=== PATIENT | male | born 1950 | race Caucasian/White ===

== ENCOUNTER → 2018-02-08 11:00 | Outpatient (CLI) | payer MEDICARE, OTHER, SELFPAY | PROVIDERS: PCP Family Medicine; Visit Provider Internal Medicine Interventional Cardiology | DX: I25.10 Atherosclerotic heart disease of native coronary artery without angina pectoris (principal); R07.9 Chest pain, unspecified; R00.2 Palpitations; G47.30 Sleep apnea, unspecified | CPT/HCPCS: 99213 ==

== ENCOUNTER 2018-02-10 11:28 | Outpatient (RCR) | payer SELFPAY | END 2018-02-10 23:59 | disposition home or self-care (01) | LOC: CR 11:28 | PROVIDERS: PCP Family Medicine; Visit Provider Family Medicine | DX: Z51.89 Encounter for other specified aftercare (principal) | CPT/HCPCS: S9472 ==

== ENCOUNTER 2018-02-20 01:26 | Outpatient (CLI) | payer MEDICARE, SELFPAY | END 2018-02-20 01:46 | PROVIDERS: PCP Family Medicine; Visit Provider Internal Medicine Interventional Cardiology | DX: I45.81 Long QT syndrome (principal) | CPT/HCPCS: 93005; 93010 ==

== ENCOUNTER 2018-03-06 17:05 | Outpatient (CLI) | payer MEDICARE, SELFPAY ==
--- NOTE | 2018-03-06 15:03 | DI.RAD_ITS ---
SYMPTOM/DIAGNOSIS: LOW BACK AND RT LEG PAIN, ACUTE, M54.5, M54.41 LUMBAR SPINE: AP, lateral and bilateral oblique views. There are five lumbar type vertebral bodies. No spondylolysis or spondylolisthesis is seen. No acute fractures or subluxations are present. Mild disc space narrowing is seen at L 2-3, L 3-4 and L 5-S 1. There are endplate osteophytes seen at L 3-4 through L 5-S 1 disc levels. Degenerative changes of the facets are seen at L 3-4, L 4-5 and L 5-S 1. Surgical clips are seen in the right upper quadrant of the abdomen likely from prior cholecystectomy. IMPRESSION: Moderate degenerative changes in the lumbar spine.
== END 2018-03-06 17:25 ==
PROVIDERS: PCP Family Medicine; Visit Provider Family Medicine
DX: M54.5 Low back pain (principal); M54.41 Lumbago with sciatica, right side; M51.37 Other intervertebral disc degeneration, lumbosacral region
CPT/HCPCS: 72110

== ENCOUNTER 2018-03-10 13:16 | Outpatient (RCR) | payer SELFPAY | END 2018-03-12 23:59 | disposition home or self-care (01) | LOC: CR 13:16 | PROVIDERS: PCP Family Medicine; Visit Provider Family Medicine | DX: Z51.89 Encounter for other specified aftercare (principal) | CPT/HCPCS: S9472 ==

== ENCOUNTER 2018-03-15 07:00 | Outpatient (RCR) | payer SELFPAY | END 2018-04-12 23:59 | disposition home or self-care (01) | LOC: CR 07:00 | PROVIDERS: PCP Family Medicine; Visit Provider Family Medicine | DX: Z51.89 Encounter for other specified aftercare (principal) | CPT/HCPCS: S9472 ==

== ENCOUNTER 2018-03-28 01:25 | Outpatient (CLI) | payer MEDICARE, OTHER, SELFPAY ==
--- NOTE | 2018-03-28 08:30 | DI.MRI_ITS ---
SYMPTOMS/DIAGNOSIS: LOW BACK PAIN AND RIGHT SCIATICA, M54.41, LUMBAGO LUMBAR MRI: The study is compared with the prior examination of 12/05/13. Sagittal T1 and T2 and axial T1 and T2 pulse sequences were performed. Again noted is multilevel facet joint hypertrophy with associated spinal canal stenosis and neural foraminal stenosis. There is no significant bony signal abnormality. There is evidence of degenerative disc disease involving L1 through S1. Again demonstrated is a disc bulge at L5-S1. Again demonstrated are subligamentous disc protrusions at L4-5, L3-4 and L2-3. At L3-4, there is mild to moderate central spinal canal stenosis. The small disc herniation is unchanged when compared with the prior study. At L2-3, mild central canal stenosis is demonstrated, unchanged when compared with the prior study. SUMMARY: When compared with the prior examination, again noted are findings consistent with degenerative disc disease. There are multiple disc herniations and severe facet joint DJD is as noted above, the findings again most severe at L3-4. There has been little interval change when compared with the prior examination.
== END 2018-03-28 01:45 ==
PROVIDERS: PCP Family Medicine; Visit Provider Family Medicine
DX: M54.41 Lumbago with sciatica, right side (principal); M51.16 Intervertebral disc disorders with radiculopathy, lumbar region
CPT/HCPCS: 72148

== ENCOUNTER 2018-04-13 04:31 | Outpatient (RCR) | payer SELFPAY | END 2018-05-12 23:59 | disposition home or self-care (01) | LOC: CR 04:31 | PROVIDERS: PCP Family Medicine; Visit Provider Family Medicine | DX: Z51.89 Encounter for other specified aftercare (principal) ==

== ENCOUNTER 2018-04-17 08:54 | Outpatient (CLI) | payer MEDICARE, OTHER, SELFPAY ==
[2018-04-17 10:36] LABS: HCT 43.8 % (40.0-50.0); HGB 14.6 g/dL (13.5-17.5); Mean Corp. HGB Concentration 33.3 g/dL (32.0-36.0); Mean Corpuscular Hemoglobin 30.2 pg (27.0-33.0); Mean Corpuscular Volume 90.5 fL (80-95); Mean Platelet Volume 10.2 fL (8.0-11.0); Platelet Count 260 x1000/uL (130-400); RBC 4.84 m/cumm (4.50-6.00); RBC Distribution Width 14.4 % (11.8-14.1); White Blood Cell Count 6.15 k/cumm (4.4-10.8)
[2018-04-17 10:55] LABS: ALT 24 U/L (12-78); AST 24 U/L (15-37); Albumin 3.9 g/dL (3.4-5.0); Alkaline Phosphatase 99 U/L (46-116); Anion Gap 9.9 mmol/L (3-11); BUN 17 mg/dL (7-18); Bilirubin, Total 0.5 mg/dL (0.2-1.0); CO2 26.1 mmol/L (21.0-32.0); CREATININE 1.49 mg/dL (0.70-1.30); Calcium 8.9 mg/dL (8.5-10.1); Chloride 103 mmol/L (98-107); Estimated GFR 47.04 (mL/min/1.73m2); Glucose 105 mg/dL (70-100); Potassium 4.3 mmol/L (3.5-5.1); Sodium 139 mmol/L (136-145); TSH (W/Ref FT4) 3.64 uIU/mL (0.358-3.74); Total Protein 6.8 g/dL (6.4-8.2)
== END 2018-04-17 09:14 ==
PROVIDERS: PCP Family Medicine; Visit Provider Family Medicine
DX: I25.10 Atherosclerotic heart disease of native coronary artery without angina pectoris (principal); R79.89 Other specified abnormal findings of blood chemistry; L40.9 Psoriasis, unspecified; I10 Essential (primary) hypertension
CPT/HCPCS: 36415; 80053; 85027; 84443

== ENCOUNTER 2018-05-02 10:09 | Outpatient (CLI) | payer MEDICARE, OTHER, SELFPAY ==
[2018-05-02 10:35] LABS: Abs Immature Grans 0.07 k/cumm (0.0-0.09); Absolute Eosinophil Count 0.17 k/cumm (0.0-0.7); Absolute Lymphocyte Count 2.16 k/cumm (1.2-3.4); Absolute Monocyte Count 1.44 k/cumm (0.11-0.7); Absolute Neutrophil Count 7.92 k/cumm (1.2-6.7); Basophils % 0.3; Eosinophils % 1.4; HGB 14.1 g/dL (13.5-17.5); Immature Grans % 0.6; Lymphocytes % 18.3; Mean Corp. HGB Concentration 33.6 g/dL (32.0-36.0); Mean Corpuscular Hemoglobin 30.5 pg (27.0-33.0); Mean Corpuscular Volume 90.7 fL (80-95); Monocytes % 12.2; Neutrophils % 67.2; Platelet Count 282 x1000/uL (130-400); RBC 4.63 m/cumm (4.50-6.00); RBC Distribution Width 14.8 % (11.8-14.1); White Blood Cell Count 11.79 k/cumm (4.4-10.8)
[2018-05-02 10:38] LABS: Absolute Basophil Count 0.04 k/cumm (0.0-0.2)
[2018-05-02 11:36] LABS: ALT 25 U/L (12-78); AST 19 U/L (15-37); Albumin 3.5 g/dL (3.4-5.0); Alkaline Phosphatase 117 U/L (46-116); Anion Gap 11.7 mmol/L (3-11); BUN 21 mg/dL (7-18); Bilirubin, Total 0.4 mg/dL (0.2-1.0); CO2 24.3 mmol/L (21.0-32.0); CREATININE 1.38 mg/dL (0.70-1.30); Calcium 8.6 mg/dL (8.5-10.1); Chloride 102 mmol/L (98-107); Glucose 102 mg/dL (70-100); Potassium 3.9 mmol/L (3.5-5.1); Sodium 138 mmol/L (136-145); Total Protein 7.3 g/dL (6.4-8.2)
[2018-05-05 12:14] LABS: BCR/ABL1, p210 Result see interpretation; Specimen Type EDTA WHOLE BLOOD
== END 2018-05-02 10:29 ==
PROVIDERS: PCP Family Medicine; Visit Provider Nurse Practitioner Family
DX: C92.10 Chronic myeloid leukemia, BCR/ABL-positive, not having achieved remission (principal)
CPT/HCPCS: 36415; 80053; 81206; 85025

== ENCOUNTER 2018-10-16 08:27 | Outpatient (CLI) | payer MEDICARE, OTHER, SELFPAY | END 2018-10-16 08:47 | PROVIDERS: PCP Family Medicine; Visit Provider Internal Medicine Interventional Cardiology | DX: I25.10 Atherosclerotic heart disease of native coronary artery without angina pectoris (principal); I10 Essential (primary) hypertension; R00.2 Palpitations; R06.02 Shortness of breath; R53.83 Other fatigue; R13.10 Dysphagia, unspecified | CPT/HCPCS: 99214; 93005; 93010 ==

== ENCOUNTER 2018-10-30 07:52 | Outpatient (CLI) | payer MEDICARE, SELFPAY ==
[2018-10-30 08:42] LABS: Abs Immature Grans 0.02 k/cumm (0.0-0.09); Absolute Basophil Count 0.04 k/cumm (0.0-0.2); Absolute Eosinophil Count 0.31 k/cumm (0.0-0.7); Absolute Lymphocyte Count 1.99 k/cumm (1.2-3.4); Absolute Monocyte Count 0.68 k/cumm (0.11-0.7); Absolute Neutrophil Count 3.44 k/cumm (1.2-6.7); Basophils % 0.6; Eosinophils % 4.8; HCT 43.2 % (40.0-50.0); HGB 14.4 g/dL (13.5-17.5); Immature Grans % 0.3; Lymphocytes % 30.7; Mean Corp. HGB Concentration 33.3 g/dL (32.0-36.0); Mean Corpuscular Hemoglobin 29.8 pg (27.0-33.0); Mean Corpuscular Volume 89.4 fL (80-95); Mean Platelet Volume 10.2 fL (8.0-11.0); Monocytes % 10.5; Neutrophils % 53.1; Platelet Count 254 x1000/uL (130-400); RBC 4.83 m/cumm (4.50-6.00); RBC Distribution Width 15.2 % (11.8-14.1); White Blood Cell Count 6.48 k/cumm (4.4-10.8)
[2018-10-30 09:42] LABS: ALT 33 U/L (12-78); AST 29 U/L (15-37); Albumin 4.1 g/dL (3.4-5.0); Alkaline Phosphatase 100 U/L (46-116); Bilirubin, Direct 0.14 mg/dL (0.00-0.20); Bilirubin, Total 0.6 mg/dL (0.2-1.0); Total Protein 7.2 g/dL (6.4-8.2)
[2018-10-30 09:58] LABS: ALT 30 U/L (12-78); AST 28 U/L (15-37); Alkaline Phosphatase 97 U/L (46-116); Anion Gap 12.2 mmol/L (3-11); BUN 21 mg/dL (7-18); Bilirubin, Total 0.6 mg/dL (0.2-1.0); CO2 25.8 mmol/L (21.0-32.0); CREATININE 1.54 mg/dL (0.70-1.30); Calcium 8.6 mg/dL (8.5-10.1); Chloride 103 mmol/L (98-107); Cholesterol 148 mg/dL (50-200); Estimated GFR 45.15 (mL/min/1.73m2); Glucose 114 mg/dL (70-100); HDL Cholesterol 31 mg/dL (40-60); LDL CHOLESTEROL 88 mg/dL (<100); Potassium 4.1 mmol/L (3.5-5.1); Sodium 141 mmol/L (136-145); TSH (W/Ref FT4) 3.85 uIU/mL (0.358-3.74); Total Protein 7.1 g/dL (6.4-8.2); Triglyceride 224 mg/dL (30-150)
[2018-10-30 10:21] LABS: FREE T4 0.95 ng/dL (0.76-1.46); NT-proBNP 512 pg/mL
[2018-11-21 10:38] LABS: Indication for Study See Comments
[2018-11-21 10:39] LABS: BCR-ABL1 p210 FusionTranscript See Comments; Specimen Type Peripheral blood
[2018-11-21 10:40] LABS: Limitations and Disclaimers See Comments
[2018-11-21 10:45] LABS: BCR-ABL1 Interpretation See Comments
== END 2018-10-30 08:12 ==
PROVIDERS: Internal Medicine Interventional Cardiology; PCP Family Medicine; Visit Provider Internal Medicine Hematology & Oncology
DX: E03.9 Hypothyroidism, unspecified (principal); E78.5 Hyperlipidemia, unspecified; I07.1 Rheumatic tricuspid insufficiency; N25.9 Disorder resulting from impaired renal tubular function, unspecified; M10.9 Gout, unspecified; Z01.30 Encounter for examination of blood pressure without abnormal findings; I25.10 Atherosclerotic heart disease of native coronary artery without angina pectoris; I10 Essential (primary) hypertension; I42.9 Cardiomyopathy, unspecified; C92.10 Chronic myeloid leukemia, BCR/ABL-positive, not having achieved remission
CPT/HCPCS: 36415; 80053; 80061; 80076; 81206; 83721; 84520; 85027; 83880; 84439; 84443; 84550; 85025

== ENCOUNTER 2018-11-10 11:56 | Outpatient (RCR) | payer SELFPAY | END 2018-11-10 23:59 | disposition home or self-care (01) | LOC: CR 11:56 | PROVIDERS: PCP Family Medicine; Visit Provider Family Medicine | DX: Z51.89 Encounter for other specified aftercare (principal) | CPT/HCPCS: S9472 ==

== ENCOUNTER 2018-12-06 13:00 | Outpatient (RCR) | payer SELFPAY | END 2018-12-10 23:59 | disposition home or self-care (01) | LOC: CR 13:00 | PROVIDERS: PCP Family Medicine; Visit Provider Family Medicine | DX: Z51.89 Encounter for other specified aftercare (principal) | CPT/HCPCS: S9472 ==

== ENCOUNTER 2018-12-18 07:00 | Outpatient (RCR) | payer SELFPAY | END 2019-01-10 23:59 | disposition home or self-care (01) | LOC: CR 07:00 | PROVIDERS: PCP Family Medicine; Visit Provider Family Medicine | DX: Z51.89 Encounter for other specified aftercare (principal) | CPT/HCPCS: S9472 ==

== ENCOUNTER 2019-01-11 04:43 | Outpatient (RCR) | payer SELFPAY | END 2019-02-10 23:59 | disposition home or self-care (01) | LOC: CR 04:43 | PROVIDERS: PCP Family Medicine; Visit Provider Family Medicine | DX: Z51.89 Encounter for other specified aftercare (principal) ==

== ENCOUNTER 2019-01-23 08:46 | Outpatient (CLI) | payer MEDICARE, SELFPAY ==
[2019-01-23 09:29] LABS: Abs Immature Grans 0.02 k/cumm (0.0-0.09); Absolute Basophil Count 0.06 k/cumm (0.0-0.2); Absolute Eosinophil Count 0.32 k/cumm (0.0-0.7); Absolute Monocyte Count 0.62 k/cumm (0.11-0.7); Absolute Neutrophil Count 4.17 k/cumm (1.2-6.7); Basophils % 0.9; Eosinophils % 4.7; HCT 42.1 % (40.0-50.0); HGB 14.2 g/dL (13.5-17.5); Immature Grans % 0.3; Lymphocytes % 23.6; Mean Corp. HGB Concentration 33.7 g/dL (32.0-36.0); Mean Corpuscular Hemoglobin 30.2 pg (27.0-33.0); Mean Corpuscular Volume 89.6 fL (80-95); Mean Platelet Volume 10.4 fL (8.0-11.0); Monocytes % 9.1; Neutrophils % 61.4; Platelet Count 239 x1000/uL (130-400); RBC Distribution Width 14.8 % (11.8-14.1); White Blood Cell Count 6.79 k/cumm (4.4-10.8)
[2019-01-23 09:42] LABS: ALT 33 U/L (12-78); AST 24 U/L (15-37); Albumin 3.7 g/dL (3.4-5.0); Alkaline Phosphatase 98 U/L (46-116); Anion Gap 11.1 mmol/L (3-11); BUN 20 mg/dL (7-18); Bilirubin, Total 0.5 mg/dL (0.2-1.0); CO2 23.9 mmol/L (21.0-32.0); Chloride 105 mmol/L (98-107); Estimated GFR 46.54 (mL/min/1.73m2); Glucose 121 mg/dL (70-100); Potassium 3.8 mmol/L (3.5-5.1); Sodium 140 mmol/L (136-145); Total Protein 7.1 g/dL (6.4-8.2)
[2019-02-09 16:17] LABS: Indication for Study See Comments; Specimen Type Peripheral blood
[2019-02-09 16:18] LABS: BCR-ABL1 Interpretation See Comments; BCR-ABL1 p210 FusionTranscript See Comments
[2019-02-09 16:19] LABS: Limitations and Disclaimers See Comments
== END 2019-01-23 09:06 ==
PROVIDERS: PCP Family Medicine; Visit Provider Internal Medicine Hematology & Oncology
DX: C92.10 Chronic myeloid leukemia, BCR/ABL-positive, not having achieved remission (principal)
CPT/HCPCS: 36415; 80053; 81206; 85025

== ENCOUNTER 2019-02-11 03:18 | Outpatient (RCR) | payer SELFPAY | END 2019-03-12 23:59 | disposition home or self-care (01) | LOC: CR 03:18 | PROVIDERS: PCP Family Medicine; Visit Provider Family Medicine | DX: Z51.89 Encounter for other specified aftercare (principal) ==

== ENCOUNTER 2019-02-13 09:07 | Outpatient (CLI) | payer MEDICARE, OTHER, SELFPAY ==
[2019-02-13 11:42] LABS: FREE T4 0.81 ng/dL (0.76-1.46)
== END 2019-02-13 09:27 ==
PROVIDERS: PCP Family Medicine; Visit Provider Family Medicine
DX: E03.9 Hypothyroidism, unspecified (principal)
CPT/HCPCS: 36415; 84439; 84443

== ENCOUNTER 2019-03-13 05:38 | Outpatient (RCR) | payer SELFPAY ==
--- NOTE | 2019-04-23 14:13 | PR3E_ITS ---
68 year old male joined the maintenance phase of cardiac rehabilitation in 2016 after completing Phase 2. The patient has attended classes since 2016, off season in [place], but has not attended class since December 2018 due to back pain and is leaving now for winter in [place]. The patient is being discharged from the program at this time. Will assist patient in re-enrolling in the program and obtaining proper referrals in the future should he want to return.
== END 2019-04-12 23:59 | disposition home or self-care (01) ==
LOC: CR 05:38
PROVIDERS: PCP Family Medicine; Visit Provider Family Medicine
DX: Z51.89 Encounter for other specified aftercare (principal)

== ENCOUNTER → 2019-03-29 10:03 | Outpatient (BNVA) | payer MEDICARE, SELFPAY | PROVIDERS: PCP Family Medicine; Referring Provider Family Medicine; Visit Provider Internal Medicine Cardiovascular Disease | DX: I25.10 Atherosclerotic heart disease of native coronary artery without angina pectoris (principal); F17.200 Nicotine dependence, unspecified, uncomplicated; E78.5 Hyperlipidemia, unspecified; I42.9 Cardiomyopathy, unspecified; I10 Essential (primary) hypertension | CPT/HCPCS: 99205; 99215 ==

== ENCOUNTER 2019-03-29 11:04 | Outpatient (CLI) | payer MEDICARE, SELFPAY ==
[2019-03-29 11:57] LABS: Abs Immature Grans 0.03 k/cumm (0.0-0.09); Absolute Basophil Count 0.06 k/cumm (0.0-0.2); Absolute Eosinophil Count 0.29 k/cumm (0.0-0.7); Absolute Lymphocyte Count 2.06 k/cumm (1.2-3.4); Absolute Monocyte Count 0.69 k/cumm (0.11-0.7); Absolute Neutrophil Count 3.77 k/cumm (1.2-6.7); Basophils % 0.9; Eosinophils % 4.2; HCT 43.5 % (40.0-50.0); HGB 14.7 g/dL (13.5-17.5); Immature Grans % 0.4; Lymphocytes % 29.9; Mean Corp. HGB Concentration 33.8 g/dL (32.0-36.0); Mean Corpuscular Hemoglobin 30.2 pg (27.0-33.0); Mean Corpuscular Volume 89.5 fL (80-95); Mean Platelet Volume 10.2 fL (8.0-11.0); Neutrophils % 54.6; Platelet Count 307 x1000/uL (130-400); RBC 4.86 m/cumm (4.50-6.00); RBC Distribution Width 14.7 % (11.8-14.1)
[2019-03-29 12:28] LABS: ALT 35 U/L (16-63); AST 35 U/L (15-37); Albumin 3.8 g/dL (3.4-5.0); Alkaline Phosphatase 111 U/L (46-116); Anion Gap 10.5 mmol/L (3-11); BUN 18 mg/dL (7-18); Bilirubin, Total 0.6 mg/dL (0.2-1.0); CO2 26.5 mmol/L (21.0-32.0); CREATININE 1.51 mg/dL (0.70-1.30); Calcium 8.6 mg/dL (8.5-10.1); Chloride 104 mmol/L (98-107); Estimated GFR 46.18 (mL/min/1.73m2); Glucose 91 mg/dL (70-100); Potassium 4.7 mmol/L (3.5-5.1); Sodium 141 mmol/L (136-145); Total Protein 7.8 g/dL (6.4-8.2)
[2019-04-13 10:30] LABS: Specimen Type Peripheral blood
[2019-04-13 10:33] LABS: Indication for Study See Comments
[2019-04-13 10:34] LABS: BCR-ABL1 p210 FusionTranscript NOT DETECTED
[2019-04-13 10:36] LABS: Limitations and Disclaimers See Comments
[2019-04-13 10:37] LABS: BCR-ABL1 Interpretation See Comments
== END 2019-03-29 11:24 ==
PROVIDERS: PCP Family Medicine; Visit Provider Internal Medicine Hematology & Oncology
DX: C92.10 Chronic myeloid leukemia, BCR/ABL-positive, not having achieved remission (principal); I25.10 Atherosclerotic heart disease of native coronary artery without angina pectoris; F17.200 Nicotine dependence, unspecified, uncomplicated; E78.5 Hyperlipidemia, unspecified; I42.9 Cardiomyopathy, unspecified; I10 Essential (primary) hypertension
CPT/HCPCS: 36415; 80053; 81206; 99215; 85025

== ENCOUNTER 2019-05-03 03:32 | Outpatient (CLI) | payer MEDICARE, SELFPAY ==
--- NOTE | 2019-05-21 13:40 | ZIOP_ITS ---
Date of service: 05/21/19 Time of Service: 13:40 ZIO Patch Motor Vehicle Compliance Analyst Note: This is a 2-week ZIO patch worn for the indication of palpitations. ?Patient was in normal sinus rhythm for the majority of the recording. It with a minimum heart rate of 42 and a maximum of 146. ?There were 9 episodes of supraventricular tachycardia with the longest lasting 11 seconds at a rate of 115bpm. One episode corresponded with a symptomatic event. ?There were rare single supraventricular ectopic beats. ?There was one episode of ventricular tachycardia which lasted 7 beats. There were rare (less than 1%) premature ventricular beats. ?There were no episodes of atrial fibrillation, pauses greater than 3 seconds or high degree AV block. ?There were 2 patient triggered events 1 associated with supraventricular tachycardia at 1 associated with sinus rhythm.
== END 2019-05-03 03:52 ==
PROVIDERS: PCP Family Medicine; Visit Provider Family Medicine
DX: R00.2 Palpitations (principal); I47.1 Supraventricular tachycardia; I49.3 Ventricular premature depolarization; I47.2 Ventricular tachycardia
CPT/HCPCS: 0296T

== ENCOUNTER 2019-05-09 08:27 | Emergency (ER) | payer MEDICARE, SELFPAY ==
[2019-05-09] VITALS (42 sets, daily range): BP systolic 69–173; BP diastolic 40–70; PULSE 46–71; RESP 13–27; TEMP 36.6–36.9; O2SAT 90–95
--- NOTE | 2019-05-09 08:41 | DI.RAD_ITS ---
EXAM: XR CHEST 2V PA LATERAL CLINICAL HISTORY: shortness of breath TECHNIQUE: The study was performed according to the usual protocol. COMPARISON: CHEST 2 VIEWS PA,LAT from 10/08/2016 FINDINGS: The heart is enlarged. There is a poor inspiration. There may be small pleural effusions bilaterall y. There are streaky increased radiodensities in the lung bases and perihilar regions. The findings are suggestive of CHF. IMPRESSION: Probable CHF. Please correlate clinically.
--- NOTE | 2019-05-09 08:42 | ED.GENADUL_ITS ---
Discharge Plan Disposition Patient Disposition: HOME Condition: Stable Discharge Details Chief Complaint: Chest Pain Clinical Impression: CHF (congestive heart failure) Primary Care Provider: Sonam Samayoa ED Provider: Carlos Montenegro [place] Meds and New Rx's Prescriptions: New furosemide [Lasix] 20 mg tablet 20 mg PO DAILY Qty: 14 RF: 0 Continued Bosulif 100 mg tablet 300 mg PO DAILY RF: 0 lorazepam 1 mg tablet 1 mg PO DAILY MDD 2 PRN (Reason: clautrophobia) Qty: 2 RF: 0 allopurinol 300 mg tablet 150 mg PO DAILY Qty: 90 RF: 12 clopidogrel 75 mg tablet 75 mg PO DAILY 90 Days Qty: 90 RF: 4 nifedipine [Adalat CC] 60 mg tablet extended release 60 mg PO DAILY Qty: 90 RF: 12 pantoprazole 20 mg tablet,delayed release (DR/EC) 40 mg PO DAILY Qty: 90 RF: 3 duloxetine 60 mg capsule,delayed release(DR/EC) 60 mg PO DAILY Qty: 90 RF: 4 rosuvastatin [Crestor] 10 mg tablet 20 mg PO DAILY RF: 0 levothyroxine 50 mcg tablet 50 mcg PO DAILY Qty: 90 RF: 4 gabapentin 300 mg capsule 300 mg PO TID Qty: 270 RF: 5 cholecalciferol (vitamin D3) 5,000 UNIT tablet 5,000 unit PO DAILY RF: 0 aspirin 81 MG tablet,delayed release (DR/EC) 81 mg PO DAILY RF: 0 isosorbide mononitrate 30 mg tablet extended release 24 hr 90 mg PO DAILY Qty: 270 RF: 12 ranolazine [Ranexa] 500 mg tablet extended release 12 hr 500 mg PO BID Qty: 180 RF: 12 etanercept 50 mg/mL (1 mL) pen injector 50 mg SC QWEEK Qty: 12 RF: 6 carvedilol 6.25 mg tablet 6.25 mg PO BID Qty: 180 RF: 3 nitroglycerin 0.4 mg tablet, sublingual 0.4 mg Sublingual q 5 min Qty: 25 RF: 0 Discharge Instructions Instructions: Pulmonary Edema (ED) Additional Instructions: take the lasix daily and follow up with your primary care provider within a week to discuss continuing this medication or increasing it if you feel more ill, have more shortness of breath, pain or fevers return to the emergency department Medical Decision Making 68 yo male with hx of cardiomyopathy, CAD, HTN, who comes in with shortness of breath when laying flat and some intermittent chest discomfort he descrbies as an ache and mild. Denies any pain now and while sitting up in the stretcher is speaking in full sentences and denies any symptoms. No cough, no fevers. Has clear lung sounds and no murmurs on exam. On bedside u/s does have b lines bilaterally in the lungs so suspect pulmonary edema, will give a dose of lasix and obtain cxr. His chest pain is non radiating and no n/v or diaphoresis so unlikely nstmei but will evaluate for this with troponin. No evidence of dvt on exam, no hypoxia or tachycardia or pleuritic chest stacy so doubt PE. No tearing chest pain and normal vascular exam so doubt dissection pt remains stable and asymptomatic. Labs show elevated probnp and otherwise no acute changes. Discussed admission for observation vs repeat troponin and patient prefers second troponin. Will obtain this and delta ekg pt remains stable and without symptoms, repeat troponin negative. Will d/c home and have him f/u with pcp within a week, return precautions given Differential Diagnosis Differential Diagnosis: chf, nstemi, pna Imaging Data Radiologic Study: Attestation: I personally reviewed and interpreted this imaging study as follows: Imaging: X-Ray Radiologist's impression: likely chf Lab Data Lab results reviewed: Yes I reviewed the patient's lab results. ECG Data Attestation: I personally reviewed and interpreted this ECG (s) as follows: Prior ECG tracings: available for review Interpretation: sinus rhythm, rate of 64, pr 148, no acute st t wave ischemic findings 2nd ekg sinus bradycardia, rate of 50, r 142, no acute st t wave ischemic changes HPI General Mode of arrival: ambulatory . Date/Time Provider Initiated Documentation: 05/09/19 08:31 . Limitations to Documentation: no limitations . Information obtained by: patient . History of Present Illness 68 year old M presents to the emergency department with the chief complaint of short of breath when laying flat, described as mild, Patient reports no radiation. Patient started experiencing this day(s) (3) and it has been intermittent. No relieving factors improve symptom(s), No exacerbating factors reported . Patient notes chest pain. Related Data Home Medications Medication Instructions Recorded Confirmed cholecalciferol (vitamin D3) 5,000 unit PO DAILY 02/03/15 05/09/19 aspirin 81 mg PO DAILY tab-cap 07/19/16 05/09/19 lorazepam 1 mg tablet 1 mg PO DAILY PRN #2 tab MDD 2 03/23/18 05/09/19 isosorbide mononitrate 30 mg 90 mg PO DAILY #270 tab-cap 10/06/18 05/09/19 tablet,extended release 24 hr bosutinib 100 mg tablet 300 mg PO DAILY tab 10/16/18 05/09/19 allopurinol 300 mg tablet 150 mg PO DAILY #90 tab-cap 10/23/18 05/09/19 clopidogrel 75 mg tablet 75 mg PO DAILY 90 Days #90 tab-cap 10/23/18 05/09/19 duloxetine 60 mg capsule,delayed 60 mg PO DAILY #90 cap 10/23/18 05/09/19 release nifedipine 60 mg tablet,extended 60 mg PO DAILY #90 tab-cap 10/23/18 05/09/19 release pantoprazole 20 mg tablet,delayed 40 mg PO DAILY #90 tab-cap 10/23/18 05/09/19 release ranolazine 500 mg tablet,extended 500 mg PO BID #180 tab-cap 11/14/18 05/09/19 release,12 hr etanercept 50 mg/mL (1 mL) 50 mg SC QWEEK #12 ml 03/21/19 05/09/19 subcutaneous pen injector carvedilol 6.25 mg tablet 6.25 mg PO BID #180 tab 04/05/19 05/09/19 nitroglycerin 0.4 mg sublingual 0.4 mg SUBLINGUAL q 5 min #25 04/05/19 05/09/19 tablet tab-cap gabapentin 300 mg capsule 300 mg PO TID #270 cap 05/01/19 05/09/19 levothyroxine 50 mcg tablet 50 mcg PO DAILY #90 tab 05/01/19 05/09/19 rosuvastatin 10 mg tablet 20 mg PO DAILY tab-cap 05/01/19 05/09/19 furosemide [Lasix] 20 mg PO DAILY #14 tab 05/09/19 Previous Rx's Medication Instructions Recorded lorazepam 1 mg tablet 1 mg PO DAILY PRN #2 tab MDD 2 03/23/18 isosorbide mononitrate 30 mg 90 mg PO DAILY #270 tab-cap 10/06/18 tablet,extended release 24 hr allopurinol 300 mg tablet 150 mg PO DAILY #90 tab-cap 10/23/18 clopidogrel 75 mg tablet 75 mg PO DAILY 90 Days #90 tab-cap 10/23/18 duloxetine 60 mg capsule,delayed 60 mg PO DAILY #90 cap 10/23/18 release nifedipine 60 mg tablet,extended 60 mg PO DAILY #90 tab-cap 10/23/18 release pantoprazole 20 mg tablet,delayed 40 mg PO DAILY #90 tab-cap 10/23/18 release ranolazine 500 mg tablet,extended 500 mg PO BID #180 tab-cap 11/14/18 release,12 hr etanercept 50 mg/mL (1 mL) 50 mg SC QWEEK #12 ml 03/21/19 subcutaneous pen injector carvedilol 6.25 mg tablet 6.25 mg PO BID #180 tab 04/05/19 nitroglycerin 0.4 mg sublingual 0.4 mg SUBLINGUAL q 5 min #25 04/05/19 tablet tab-cap gabapentin 300 mg capsule 300 mg PO TID #270 cap 05/01/19 levothyroxine 50 mcg tablet 50 mcg PO DAILY #90 tab 05/01/19 furosemide [Lasix] 20 mg PO DAILY #14 tab 05/09/19 Allergies Allergy/AdvReac Type Severity Reaction Status Date / Time chlorthalidone Allergy Severe facial Unverified 05/09/19 08:33 swelling dexamethasone Allergy Intermediate severe Unverified 05/09/19 08:33 facial swelling lisinopril Allergy Intermediate Facial Unverified 05/09/19 08:33 swelling losartan AdvReac Intermediate MUSCLE Unverified 05/09/19 08:33 WEAKNESS amlodipine AdvReac Mild FUNNY Unverified 05/09/19 08:33 FEELING General Stated Complaint: Chest Pain DAT: 2 Review of Systems All systems reviewed & are unremarkable except as noted in HPI and below Constitutional Constitutional: Denies chills, Denies fever(s) and Denies weakness Respiratory Respiratory: Denies cough Gastrointestinal Gastrointestinal: Denies abdominal pain, Denies nausea and Denies vomiting Musculoskeletal Musculoskeletal: Denies joint swelling Neurologic Neurologic: Denies weakness [facility] Medical History (Updated 05/01/19 @ 11:39 by Sonam Samayoa MD, [place]) Abnormal thyroid blood test (Inactive 08/10/16) Actinic keratosis (Chronic 02/02/16) Anxiety (Chronic) Arthritis with psoriasis ASCVD (arteriosclerotic cardiovascular disease) Calculus of gallbladder with chronic cholecystitis without obstruction (Resolve d) 01/06/17 Calculus of gallbladder with chronic cholecystitis without obstruction (Inactive 01/06/17) Cardiomyopathy, ischemic (Chronic 07/15/16) [facility] [place] [facility] [place] 35% BY 07/14/16 STRESS MPI Chronic 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) Diverticulosis Diverticulosis of colon without diverticulitis (Chronic) Essential hypertension (Chronic 04/04/13) Gastric ulcer (Resolved) 05/12/80 Gout Gout (Chronic 12/17/13) renal impairment, but not in range at 200mg daily - increased to 300mg daily Hiatal hernia (Chronic 05/12/05) per EGD 07/19 HTN (hypertension) Hyperlipidemia (Chronic) 06/22: C-265; H-33; L-166; T-331; [facility] [place] [facility] [place] Hypokalemia Hypokalemia (Resolved) 01/04/13 Hypokalemia (Inactive 01/04/13) Hypothyroid (Chronic) Impaired renal function Impaired renal function disorder (Chronic 11/13/13) cr 1.5 Ischemic cardiomyopathy Kidney stone (Resolved) Kidney stone (Inactive) Low back pain with right-sided sciatica (Chronic 05/12/03) L3-4 disc herniation/DDD; B/L foraminal l4-5, L5-S1; Lumbar radiculopathy 2002 Surgery 02/24 Pain in thumb joint with movement (Resolved) 01/04/13 Personal history of colonic polyps (Chronic) Pronation deformity of foot (Chronic) Prostatism (Chronic) Psoriasis (Chronic) a. arthralgias b. 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 Psoriatic arthritis (Chronic 02/03/15) Smoker (Resolved) chews tobacco Smoker (Inactive) ST elevation myocardial infarction (STEMI) involving left anterior descending (LAD) coronary artery in recovery phase Stable angina (Chronic 07/15/16) [facility] [place] [facility] [place] Superficial injury of forearm without infection (Inactive 05/12/94) Superficial injury of right forearm (Resolved) 05/12/94 nail gun injury Tricuspid regurgitation Tricuspid regurgitation (Chronic 03/14/14) moderate Urinary tract infectious disease (Resolved) 05/12/94 Urinary tract infectious disease (Inactive 05/12/94) Vitamin D deficiency disease (Chronic) 06/22: D-26; D2-4.4; D3-22; [facility] [place] [facility] [place] Surgical History (Updated 05/01/19 @ 11:39 by Sonam Samayoa MD, [place]) BACK SURGERY EXC HERNIA INTERVERTEBRAL DISC Cholecystectomy (02/02/17) Colonoscopy - MAC (06/18/16) EGD - MAC History of back surgery (Resolved) exc. of herniated intervertebral disc History of spinal surgery (Inactive) Other specified postprocedural states (Resolved) h/o back surgery exc. of herniated intervertebral disc PTC S/P vasectomy (Resolved) Status post vasectomy (Inactive) Vasectomy Social History Smoking/Tobacco Use Status: Never Alcohol Intake: never Drug use: Never Substance use type: does not use Housing: house Number of Children: 2 What type of physical activity do you participate in: additional Details: PT and cardiac rehab Do you feel safe at home: Yes Do you feel safe in your relationship?: Yes Exam Const General: no acute distress Orientation: alert HENMT Head: normal to inspection Ears: external ears normal General nose exam: external nose normal Mouth: moist mucous membranes Eyes General: appearance normal, both eyes and all related structures Neck Neck: normal visual inspection Resp Effort & Inspection: normal respiratory effort and able to speak in complete sentences Cardio Rate: regular rate Skin General skin exam: no rashes or lesions noted Neuro General: alert and oriented x3 Extrem General: normal to inspection Psych Mental Status: mental status grossly normal Course Vital Signs Vital signs: Vital Signs Temperature 36.6 C 05/09/19 08:28 Pulse 71 05/09/19 08:28 Respiratory Rate 18 05/09/19 08:28 Blood Pressure 173/70 H 05/09/19 08:28 Pulse Oximetry 95 05/09/19 08:28 Temperature 36.6 C 05/09/19 08:28 Temperature Source Skin 05/09/19 08:28 Pulse 71 05/09/19 08:28 Respiratory Rate 20 05/09/19 08:35 Respiratory Effort 05/09/19 08:35 Respiratory Depth Normal 05/09/19 08:35 Respiratory Pattern Normal 05/09/19 08:35 Blood Pressure 173/70 H 05/09/19 08:28 Blood Pressure Position Supine 05/09/19 08:28 Pulse Oximetry 95 05/09/19 08:28 Oxygen Delivery Method Room Air 05/09/19 08:28 Oxygen Flow Rate 0 05/09/19 08:28
[2019-05-09] MEDS: Normal Saline Flush 10 ML SYR IVP (08:56)
[2019-05-09 08:57] LABS: Abs Immature Grans 0.03 k/cumm (0.0-0.09); Absolute Basophil Count 0.05 k/cumm (0.0-0.2); Absolute Eosinophil Count 0.34 k/cumm (0.0-0.7); Absolute Lymphocyte Count 1.67 k/cumm (1.2-3.4); Absolute Monocyte Count 0.88 k/cumm (0.11-0.7); Absolute Neutrophil Count 6.31 k/cumm (1.2-6.7); Basophils % 0.5; Eosinophils % 3.7; HCT 44.4 % (40.0-50.0); Immature Grans % 0.3; Mean Corp. HGB Concentration 33.8 g/dL (32.0-36.0); Mean Corpuscular Hemoglobin 29.9 pg (27.0-33.0); Mean Corpuscular Volume 88.4 fL (80-95); Mean Platelet Volume 10.5 fL (8.0-11.0); Monocytes % 9.5; Platelet Count 298 x1000/uL (130-400); RBC 5.02 m/cumm (4.50-6.00); RBC Distribution Width 14.6 % (11.8-14.1); White Blood Cell Count 9.28 k/cumm (4.4-10.8)
[2019-05-09] MEDS: Furosemide 20 MG/2 ML VIAL IVP (08:57)
[2019-05-09 09:38] LABS: Prothrombin Time 10.2 sec (9.3-11.0)
[2019-05-09 09:46] LABS: ALT 31 U/L (16-63); AST 32 U/L (15-37); Albumin 4.1 g/dL (3.4-5.0); Alkaline Phosphatase 93 U/L (46-116); Anion Gap 11.3 mmol/L (3-11); BUN 24 mg/dL (7-18); Bilirubin, Total 0.7 mg/dL (0.2-1.0); CO2 23.7 mmol/L (21.0-32.0); CREATININE 1.59 mg/dL (0.70-1.30); Calcium 8.9 mg/dL (8.5-10.1); Chloride 107 mmol/L (98-107); Estimated GFR 43.51 (mL/min/1.73m2); Glucose 119 mg/dL (74-106); Lipase 61 U/L (73-393); NT-proBNP 2124 pg/mL (<300); Potassium 3.9 mmol/L (3.5-5.1); Sodium 142 mmol/L (136-145); Total Protein 7.7 g/dL (6.4-8.2); Troponin I 0.05 ng/Ml (<0.06)
[2019-05-09 12:21] LABS: Troponin I 0.06 ng/Ml (<0.06)
--- NOTE | 2019-05-09 14:17 | NUR.NOTE ---
Nursing Note: Referral faxed to PCP for follow up. Velvet Roberts.
== END 2019-05-09 12:49 | disposition home or self-care (01) ==
PROVIDERS: Emergency Provider Emergency Medicine; PCP Family Medicine
DX: I50.9 Heart failure, unspecified (principal); I25.10 Atherosclerotic heart disease of native coronary artery without angina pectoris; I11.0 Hypertensive heart disease with heart failure; I25.5 Ischemic cardiomyopathy
CPT/HCPCS: 36415; 80053; 83690; 93005; 96374; 99285; 71046; 83880; 84484; 85025; 85610; 85730; 93010; J1941

== ENCOUNTER 2019-05-14 14:44 | Outpatient (CLI) | payer MEDICARE, SELFPAY ==
[2019-05-14 16:16] LABS: ALT 32 U/L (16-63); AST 32 U/L (15-37); Albumin 4.3 g/dL (3.4-5.0); Alkaline Phosphatase 104 U/L (46-116); Anion Gap 13.8 mmol/L (3-11); BUN 28 mg/dL (7-18); Bilirubin, Total 0.6 mg/dL (0.2-1.0); CO2 24.2 mmol/L (21.0-32.0); CREATININE 1.84 mg/dL (0.70-1.30); Calcium 8.6 mg/dL (8.5-10.1); Chloride 103 mmol/L (98-107); Estimated GFR 36.77 (mL/min/1.73m2); Glucose 95 mg/dL (74-106); NT-proBNP 837 pg/mL (<300); Potassium 3.8 mmol/L (3.5-5.1); Sodium 141 mmol/L (136-145); TSH (W/Ref FT4) 3.75 uIU/mL (0.36-3.74); Total Protein 7.5 g/dL (6.4-8.2)
[2019-05-14 16:40] LABS: FREE T4 1.07 ng/dL (0.76-1.46)
== END 2019-05-14 15:04 ==
PROVIDERS: PCP Family Medicine; Visit Provider Family Medicine
DX: E03.9 Hypothyroidism, unspecified (principal); I50.9 Heart failure, unspecified; I25.5 Ischemic cardiomyopathy; F41.3 Other mixed anxiety disorders; N25.9 Disorder resulting from impaired renal tubular function, unspecified
CPT/HCPCS: 36415; 80053; 83880; 84439; 84443

== ENCOUNTER 2019-05-21 13:40 | Outpatient (CLI) | payer MEDICARE, SELFPAY | END 2019-05-21 14:00 | PROVIDERS: PCP Family Medicine; Referring Provider Family Medicine; Visit Provider Internal Medicine Cardiovascular Disease | DX: R00.2 Palpitations (principal); I47.1 Supraventricular tachycardia; I49.3 Ventricular premature depolarization; I47.2 Ventricular tachycardia | CPT/HCPCS: 0298T ==

== ENCOUNTER 2019-09-25 01:53 | Outpatient (CLI) | payer MEDICARE, SELFPAY ==
[2019-09-25 09:22] LABS: Abs Immature Grans 0.03 k/cumm (0.0-0.09); Absolute Basophil Count 0.08 k/cumm (0.0-0.2); Absolute Eosinophil Count 0.33 k/cumm (0.0-0.7); Absolute Lymphocyte Count 1.93 k/cumm (1.2-3.4); Absolute Monocyte Count 0.56 k/cumm (0.11-0.7); Absolute Neutrophil Count 3.17 k/cumm (1.2-6.7); Basophils % 1.3; Eosinophils % 5.4; HCT 48.3 % (40.0-50.0); HGB 16.3 g/dL (13.5-17.5); Immature Grans % 0.5 %; Lymphocytes % 31.6; Mean Corp. HGB Concentration 33.7 g/dL (32.0-36.0); Mean Platelet Volume 9.3 fL (8.0-11.0); Monocytes % 9.2; Platelet Count 260 x1000/uL (130-400); RBC 5.43 m/cumm (4.50-6.00); RBC Distribution Width 14.6 % (11.8-14.1)
[2019-09-25 09:39] LABS: ALT 28 U/L (16-63); AST 28 U/L (15-37); Albumin 3.9 g/dL (3.4-5.0); Alkaline Phosphatase 89 U/L (46-116); Anion Gap 10.7 mmol/L (3-11); BUN 22 mg/dL (7-18); Bilirubin, Total 0.5 mg/dL (0.2-1.0); CO2 25.3 mmol/L (21.0-32.0); CREATININE 1.41 mg/dL (0.70-1.30); Calcium 8.9 mg/dL (8.5-10.1); Chloride 105 mmol/L (98-107); Estimated GFR 49.84 (mL/min/1.73m2); Glucose 122 mg/dL (74-106); Potassium 4.1 mmol/L (3.5-5.1); Sodium 141 mmol/L (136-145); Total Protein 7.4 g/dL (6.4-8.2)
[2019-09-27 12:15] LABS: Indication for Study CML
[2019-09-27 12:16] LABS: BCR-ABL1 p210 FusionTranscript NOT DETECTED; Specimen Type Peripheral blood
[2019-09-27 12:17] LABS: Limitations and Disclaimers See Comments
[2019-09-27 12:23] LABS: BCR-ABL1 Interpretation See Comments
== END 2019-09-25 02:13 ==
PROVIDERS: PCP Family Medicine; Visit Provider Internal Medicine Hematology & Oncology
DX: C92.10 Chronic myeloid leukemia, BCR/ABL-positive, not having achieved remission (principal)
CPT/HCPCS: 36415; 80053; 81206; 85025

== ENCOUNTER 2019-10-23 01:12 | Outpatient (CLI) | payer MEDICARE, SELFPAY ==
[2019-10-23 09:12] LABS: Abs Immature Grans 0.02 k/cumm (0.0-0.09); Absolute Basophil Count 0.07 k/cumm (0.0-0.2); Absolute Eosinophil Count 0.36 k/cumm (0.0-0.7); Absolute Lymphocyte Count 2.07 k/cumm (1.2-3.4); Absolute Monocyte Count 0.56 k/cumm (0.11-0.7); Absolute Neutrophil Count 2.96 k/cumm (1.2-6.7); Basophils % 1.2; HCT 46.7 % (40.0-50.0); HGB 15.9 g/dL (13.5-17.5); Immature Grans % 0.3 %; Lymphocytes % 34.3; Mean Corpuscular Volume 88.1 fL (80-95); Mean Platelet Volume 8.8 fL (8.0-11.0); Monocytes % 9.3; Neutrophils % 48.9; Platelet Count 297 x1000/uL (130-400); RBC Distribution Width 14.5 % (11.8-14.1); White Blood Cell Count 6.04 k/cumm (4.4-10.8)
[2019-10-23 09:23] LABS: ALT 29 U/L (16-63); AST 27 U/L (15-37); Albumin 3.6 g/dL (3.4-5.0); Alkaline Phosphatase 90 U/L (46-116); Anion Gap 8.6 mmol/L (3-11); BUN 23 mg/dL (7-18); Bilirubin, Total 0.5 mg/dL (0.2-1.0); CO2 26.4 mmol/L (21.0-32.0); CREATININE 1.53 mg/dL (0.70-1.30); Calcium 8.7 mg/dL (8.5-10.1); Chloride 102 mmol/L (98-107); Estimated GFR 45.35 (mL/min/1.73m2); Glucose 138 mg/dL (74-106); Potassium 3.8 mmol/L (3.5-5.1); Sodium 137 mmol/L (136-145); Total Protein 7.2 g/dL (6.4-8.2)
[2019-11-07 11:30] LABS: Indication for Study CML; Specimen Type Peripheral blood
[2019-11-07 11:33] LABS: BCR-ABL1 p210 FusionTranscript See Comments
[2019-11-07 11:35] LABS: BCR-ABL1 Interpretation See Comments
[2019-11-07 11:36] LABS: Limitations and Disclaimers See Comments
== END 2019-10-23 01:32 ==
PROVIDERS: PCP Family Medicine; Visit Provider Internal Medicine Hematology & Oncology
DX: C92.10 Chronic myeloid leukemia, BCR/ABL-positive, not having achieved remission (principal); I25.10 Atherosclerotic heart disease of native coronary artery without angina pectoris; I50.9 Heart failure, unspecified; I11.0 Hypertensive heart disease with heart failure
CPT/HCPCS: 36415; 80053; 81206; 99443; 85025

== ENCOUNTER 2019-10-23 09:34 | Outpatient (CLI) | payer MEDICARE, SELFPAY | END 2019-10-23 09:54 | PROVIDERS: PCP Family Medicine; Visit Provider Internal Medicine Hematology & Oncology | DX: I25.10 Atherosclerotic heart disease of native coronary artery without angina pectoris (principal); I50.9 Heart failure, unspecified; I11.0 Hypertensive heart disease with heart failure | CPT/HCPCS: 99214; 99443 ==

== ENCOUNTER 2019-12-04 01:19 | Outpatient (CLI) | payer MEDICARE, SELFPAY ==
[2019-12-04 10:29] LABS: Abs Immature Grans 0.05 k/cumm (0.0-0.09); Absolute Basophil Count 0.05 k/cumm (0.0-0.2); Absolute Lymphocyte Count 2.26 k/cumm (1.2-3.4); Absolute Monocyte Count 1.01 k/cumm (0.11-0.7); Basophils % 0.4; Eosinophils % 2.5; HGB 15.2 g/dL (13.5-17.5); Immature Grans % 0.4 %; Lymphocytes % 19.9; Mean Corp. HGB Concentration 33.8 g/dL (32.0-36.0); Mean Corpuscular Volume 88.9 fL (80-95); Mean Platelet Volume 8.9 fL (8.0-11.0); Monocytes % 8.9; Neutrophils % 67.9; Platelet Count 305 x1000/uL (130-400); RBC 5.06 m/cumm (4.50-6.00); RBC Distribution Width 14.3 % (11.8-14.1); White Blood Cell Count 11.38 k/cumm (4.4-10.8)
[2019-12-04 10:34] LABS: Absolute Eosinophil Count 0.28 k/cumm (0.0-0.7); Absolute Neutrophil Count 7.73 k/cumm (1.2-6.7)
[2019-12-04 11:28] LABS: ALT 32 U/L (16-63); AST 30 U/L (15-37); Albumin 3.8 g/dL (3.4-5.0); Alkaline Phosphatase 88 U/L (46-116); Anion Gap 10.6 mmol/L (3-11); BUN 22 mg/dL (7-18); Bilirubin, Total 0.6 mg/dL (0.2-1.0); CO2 25.4 mmol/L (21.0-32.0); CREATININE 1.47 mg/dL (0.70-1.30); Calcium 8.8 mg/dL (8.5-10.1); Chloride 103 mmol/L (98-107); Glucose 116 mg/dL (74-106); Potassium 4.3 mmol/L (3.5-5.1); Sodium 139 mmol/L (136-145); Total Protein 6.8 g/dL (6.4-8.2)
[2019-12-13 12:38] LABS: Indication for Study CML
[2019-12-13 12:39] LABS: Specimen Type Peripheral blood
[2019-12-13 12:40] LABS: BCR-ABL1 p210 FusionTranscript See Comments
[2019-12-13 12:43] LABS: BCR-ABL1 Interpretation See Comments
[2019-12-13 12:46] LABS: Limitations and Disclaimers See Comments
== END 2019-12-04 01:39 ==
PROVIDERS: PCP Family Medicine; Visit Provider Internal Medicine Hematology & Oncology
DX: C92.10 Chronic myeloid leukemia, BCR/ABL-positive, not having achieved remission (principal)
CPT/HCPCS: 36415; 80053; 81206; 85025

== ENCOUNTER 2020-01-01 02:16 | Outpatient (CLI) | payer MEDICARE, SELFPAY ==
[2020-01-01 10:32] LABS: Abs Immature Grans 0.04 k/cumm (0.0-0.09); Absolute Basophil Count 0.04 k/cumm (0.0-0.2); Absolute Eosinophil Count 0.36 k/cumm (0.0-0.7); Absolute Monocyte Count 0.36 k/cumm (0.11-0.7); Basophils % 0.7; Eosinophils % 6.7; HGB 15.8 g/dL (13.5-17.5); Immature Grans % 0.7 %; Lymphocytes % 33.3; Mean Corp. HGB Concentration 33.6 g/dL (32.0-36.0); Mean Corpuscular Volume 89.4 fL (80-95); Mean Platelet Volume 9.3 fL (8.0-11.0); Monocytes % 6.7; Neutrophils % 51.9; Platelet Count 284 x1000/uL (130-400); RBC 5.26 m/cumm (4.50-6.00); RBC Distribution Width 14.5 % (11.8-14.1)
[2020-01-01 11:21] LABS: ALT 29 U/L (16-63); AST 28 U/L (15-37); Albumin 3.7 g/dL (3.4-5.0); Alkaline Phosphatase 86 U/L (46-116); Anion Gap 12.1 mmol/L (3-11); BUN 21 mg/dL (7-18); Bilirubin, Total 0.6 mg/dL (0.2-1.0); CO2 23.9 mmol/L (21.0-32.0); CREATININE 1.46 mg/dL (0.70-1.30); Calcium 8.9 mg/dL (8.5-10.1); Chloride 104 mmol/L (98-107); Estimated GFR 47.87 (mL/min/1.73m2); Glucose 146 mg/dL (74-106); Potassium 4.1 mmol/L (3.5-5.1); Sodium 140 mmol/L (136-145); Total Protein 6.8 g/dL (6.4-8.2)
[2020-01-10 12:41] LABS: Indication for Study CML
[2020-01-10 12:43] LABS: Specimen Type Peripheral blood
[2020-01-10 12:45] LABS: BCR-ABL1 p210 FusionTranscript See Comments; Limitations and Disclaimers See Comments
[2020-01-10 12:57] LABS: BCR-ABL1 Interpretation See Comments
== END 2020-01-01 02:36 ==
PROVIDERS: PCP Family Medicine; Visit Provider Internal Medicine Hematology & Oncology
DX: C92.10 Chronic myeloid leukemia, BCR/ABL-positive, not having achieved remission (principal)
CPT/HCPCS: 36415; 80053; 81206; 85025

== ENCOUNTER → 2020-01-22 09:57 | Outpatient (BNVA) | payer MEDICARE, SELFPAY | PROVIDERS: PCP Family Medicine; Referring Provider Family Medicine; Visit Provider Internal Medicine Cardiovascular Disease | DX: I25.10 Atherosclerotic heart disease of native coronary artery without angina pectoris (principal); I50.9 Heart failure, unspecified; I42.9 Cardiomyopathy, unspecified; I11.0 Hypertensive heart disease with heart failure; I47.1 Supraventricular tachycardia | CPT/HCPCS: 99214 ==

== ENCOUNTER 2020-01-29 09:58 | Outpatient (CLI) | payer MEDICARE, SELFPAY ==
[2020-01-29 10:33] LABS: Abs Immature Grans 0.07 10^3/uL (0.0-0.06); Absolute Basophil Count 0.06 10^3/uL (0.0-0.2); Absolute Eosinophil Count 0.17 10^3/uL (0.0-0.7); Absolute Monocyte Count 0.81 10^3/uL (0.1-0.8); Basophils % 0.5; Eosinophils % 1.4; HCT 47.3 % (40.0-50.0); HGB 15.7 g/dL (13.5-17.5); Immature Grans % 0.6; Lymphocytes % 20.8; MCH 30.4 pg (27.0-33.0); MCHC 33.2 % (32.0-36.0); MCV 91.7 fL (80-95); MPV 8.9 fL (8.0-11.0); Monocytes % 6.5; Neutrophils % 70.2; Nucleated RBC 0 %; Platelet Count 315 10^3/uL (130-400); RBC 5.16 10^6/uL (4.36-5.78); RDW 14.4 % (11.8-14.1); RDW-SD 48.6 fL; WBC 12.48 10^3/uL (4.4-10.8)
[2020-01-29 10:37] LABS: Absolute Neutrophil Count 8.76 10^3/uL (1.2-6.7)
[2020-01-29 11:26] LABS: ALT 33 U/L (16-63); AST 20 U/L (15-37); Albumin 3.9 g/dL (3.4-5.0); Alkaline Phosphatase 90 U/L (46-116); Anion Gap 13.8 mmol/L (3-11); BUN 30 mg/dL (7-18); Bilirubin, Total 0.6 mg/dL (0.2-1.0); CO2 23.2 mmol/L (21.0-32.0); CREATININE 1.74 mg/dL (0.70-1.30); Calcium 9.1 mg/dL (8.5-10.1); Chloride 103 mmol/L (98-107); Glucose 173 mg/dL (74-106); Potassium 4.2 mmol/L (3.5-5.1); Sodium 140 mmol/L (136-145); Total Protein 7.1 g/dL (6.4-8.2)
[2020-02-07 09:12] LABS: Indication for Study CML
[2020-02-07 09:13] LABS: Specimen Type Peripheral blood
== END 2020-01-29 10:18 ==
PROVIDERS: PCP Family Medicine; Visit Provider Internal Medicine Hematology & Oncology
DX: C92.10 Chronic myeloid leukemia, BCR/ABL-positive, not having achieved remission (principal)
CPT/HCPCS: 36415; 80053; 81206; 85025

== ENCOUNTER 2020-03-10 02:12 | Outpatient (RCR) | payer MEDICARE, SELFPAY ==
[2020-02-28 09:21] LABS: Abs Immature Grans 0.04 10^3/uL (0.0-0.06); Absolute Basophil Count 0.06 10^3/uL (0.0-0.2); Absolute Eosinophil Count 0.19 10^3/uL (0.0-0.7); Absolute Lymphocyte Count 2.03 10^3/uL (1.2-3.4); Absolute Monocyte Count 0.64 10^3/uL (0.1-0.8); Absolute Neutrophil Count 3.69 10^3/uL (1.2-6.7); Basophils % 0.9; Eosinophils % 2.9; HCT 47.1 % (40.0-50.0); HGB 15.3 g/dL (13.5-17.5); Immature Grans % 0.6; Lymphocytes % 30.5; MCH 30.2 pg (27.0-33.0); MCHC 32.5 % (32.0-36.0); MCV 92.9 fL (80-95); MPV 10.9 fL (8.0-11.0); Monocytes % 9.6; Neutrophils % 55.5; Nucleated RBC 0 %; Platelet Count 290 10^3/uL (130-400); RBC 5.07 10^6/uL (4.36-5.78); RDW-SD 47.6 fL; WBC 6.65 10^3/uL (4.4-10.8)
[2020-02-28 09:48] LABS: ALT 30 U/L (16-63); AST 25 U/L (15-37); Alkaline Phosphatase 102 U/L (46-116); Anion Gap 7.9 mmol/L (3-11); BUN 15 mg/dL (7-18); Bilirubin, Total 0.6 mg/dL (0.2-1.0); CO2 27.1 mmol/L (21.0-32.0); CREATININE 1.49 mg/dL (0.70-1.30); Calcium 8.9 mg/dL (8.5-10.1); Calculated LDL 77 mg/dL (<100); Chloride 104 mmol/L (98-107); Cholesterol 160 mg/dL (<200); Estimated GFR 46.76 (mL/min/1.73m2); Glucose 141 mg/dL (74-106); HDL Cholesterol 31 mg/dL (40-60); Sodium 139 mmol/L (136-145); TSH (W/Ref FT4) 4.64 uIU/mL (0.36-3.74); Total Protein 7.9 g/dL (6.4-8.2); Triglyceride 263 mg/dL (<150)
[2020-02-28 10:07] LABS: FREE T4 1.06 ng/dL (0.76-1.46); Uric Acid 6.1 mg/dL (3.5-7.2)
[2020-03-06 09:25] LABS: Indication for Study CML
[2020-03-06 09:27] LABS: Specimen Type Peripheral blood
[2020-03-06 09:28] LABS: BCR-ABL1 p210 FusionTranscript See Comments
[2020-03-06 09:35] LABS: BCR-ABL1 Interpretation See Comments; Limitations and Disclaimers See Comments
== END 2020-03-12 23:59 | disposition home or self-care (01) ==
LOC: INF 02:12
PROVIDERS: PCP Family Medicine; Visit Provider Internal Medicine Hematology & Oncology
DX: C92.10 Chronic myeloid leukemia, BCR/ABL-positive, not having achieved remission
CPT/HCPCS: 36415; 80053; 80061; 81206; 84439; 84443; 84550; 85025

== ENCOUNTER 2020-04-02 14:52 | Outpatient (CLI) | payer MEDICARE, SELFPAY ==
[2020-04-02 16:03] LABS: Abs Immature Grans 0.04 10^3/uL (0.0-0.06); Absolute Basophil Count 0.05 10^3/uL (0.0-0.2); Absolute Eosinophil Count 0.27 10^3/uL (0.0-0.7); Absolute Lymphocyte Count 2.11 10^3/uL (1.2-3.4); Absolute Monocyte Count 0.93 10^3/uL (0.1-0.8); Absolute Neutrophil Count 5.71 10^3/uL (1.2-6.7); Basophils % 0.5; HCT 41.6 % (40.0-50.0); HGB 13.8 g/dL (13.5-17.5); Immature Grans % 0.4; Lymphocytes % 23.2; MCH 30.2 pg (27.0-33.0); MCHC 33.2 % (32.0-36.0); MPV 10.6 fL (8.0-11.0); Monocytes % 10.2; Neutrophils % 62.7; Nucleated RBC 0 %; Platelet Count 275 10^3/uL (130-400); RBC 4.57 10^6/uL (4.36-5.78); RDW 13.5 % (11.8-14.1); RDW-SD 45.2 fL; WBC 9.11 10^3/uL (4.4-10.8)
[2020-04-02 16:34] LABS: ALT 29 U/L (16-63); AST 34 U/L (15-37); Albumin 4.2 g/dL (3.4-5.0); Alkaline Phosphatase 100 U/L (46-116); BUN 26 mg/dL (7-18); Bilirubin, Total 0.7 mg/dL (0.2-1.0); CREATININE 1.73 mg/dL (0.70-1.30); Calcium 8.8 mg/dL (8.5-10.1); Chloride 105 mmol/L (98-107); Estimated GFR 39.36 (mL/min/1.73m2); Glucose 98 mg/dL (74-106); Sodium 139 mmol/L (136-145); Total Protein 7.4 g/dL (6.4-8.2)
[2020-04-14 13:25] LABS: Indication for Study CML; Specimen Type Peripheral blood
[2020-04-14 13:26] LABS: Limitations and Disclaimers See Comments
[2020-04-14 13:27] LABS: BCR-ABL1 Interpretation See Comments; BCR-ABL1 p210 FusionTranscript See Comments
== END 2020-04-02 15:12 ==
PROVIDERS: Internal Medicine Hematology & Oncology; PCP Family Medicine; Visit Provider Internal Medicine
DX: C92.10 Chronic myeloid leukemia, BCR/ABL-positive, not having achieved remission (principal)
CPT/HCPCS: 36415; 80053; 81206; 85025

== ENCOUNTER → 2020-04-17 10:01 | Outpatient (BNVA) | payer MEDICARE, SELFPAY | PROVIDERS: PCP Family Medicine; Referring Provider Family Medicine; Visit Provider Internal Medicine Cardiovascular Disease | DX: I25.10 Atherosclerotic heart disease of native coronary artery without angina pectoris (principal); I50.9 Heart failure, unspecified; I11.0 Hypertensive heart disease with heart failure; I25.5 Ischemic cardiomyopathy | CPT/HCPCS: 99214 ==

== ENCOUNTER 2020-04-28 02:06 | Outpatient (CLI) | payer MEDICARE, SELFPAY ==
[2020-04-28 10:40] LABS: Abs Immature Grans 0.02 10^3/uL (0.0-0.06); Absolute Basophil Count 0.06 10^3/uL (0.0-0.2); Absolute Eosinophil Count 0.31 10^3/uL (0.0-0.7); Absolute Lymphocyte Count 1.96 10^3/uL (1.2-3.4); Absolute Monocyte Count 0.78 10^3/uL (0.1-0.8); Absolute Neutrophil Count 4.99 10^3/uL (1.2-6.7); Basophils % 0.7; Eosinophils % 3.8; HCT 44.8 % (40.0-50.0); HGB 14.7 g/dL (13.5-17.5); Immature Grans % 0.2; Lymphocytes % 24.1; MCH 29.9 pg (27.0-33.0); MCHC 32.8 % (32.0-36.0); MCV 91.2 fL (80-95); MPV 10.2 fL (8.0-11.0); Monocytes % 9.6; Neutrophils % 61.6; Nucleated RBC 0 %; Platelet Count 281 10^3/uL (130-400); RBC 4.91 10^6/uL (4.36-5.78); RDW 13.5 % (11.8-14.1); RDW-SD 45.4 fL; WBC 8.12 10^3/uL (4.4-10.8)
[2020-04-28 11:05] LABS: ALT 28 U/L (16-63); AST 30 U/L (15-37); Albumin 4.4 g/dL (3.4-5.0); Alkaline Phosphatase 102 U/L (46-116); Anion Gap 10.9 mmol/L (3-11); BUN 32 mg/dL (7-18); Bilirubin, Total 0.4 mg/dL (0.2-1.0); CO2 22.1 mmol/L (21.0-32.0); CREATININE 1.92 mg/dL (0.70-1.30); Calcium 9.2 mg/dL (8.5-10.1); Chloride 106 mmol/L (98-107); Glucose 114 mg/dL (74-106); Potassium 4.5 mmol/L (3.5-5.1); Sodium 139 mmol/L (136-145); Total Protein 8.3 g/dL (6.4-8.2)
[2020-05-07 17:59] LABS: Indication for Study CML
[2020-05-07 18:00] LABS: BCR-ABL1 p210 FusionTranscript See Comments; Specimen Type Peripheral blood
[2020-05-07 18:04] LABS: BCR-ABL1 Interpretation See Comments
[2020-05-07 18:05] LABS: Limitations and Disclaimers See Comments
== END 2020-04-28 02:26 ==
PROVIDERS: PCP Family Medicine; Visit Provider Internal Medicine Hematology & Oncology
DX: C92.10 Chronic myeloid leukemia, BCR/ABL-positive, not having achieved remission (principal)
CPT/HCPCS: 36415; 80053; 81206; 85025

== ENCOUNTER 2020-05-14 03:55 | Outpatient (CLI) | payer MEDICARE, SELFPAY ==
[2020-05-14 09:25] LABS: Abs Immature Grans 0.03 10^3/uL (0.0-0.06); Absolute Basophil Count 0.07 10^3/uL (0.0-0.2); Absolute Eosinophil Count 0.29 10^3/uL (0.0-0.7); Absolute Lymphocyte Count 1.49 10^3/uL (1.2-3.4); Absolute Monocyte Count 0.85 10^3/uL (0.1-0.8); Absolute Neutrophil Count 4.45 10^3/uL (1.2-6.7); HCT 40.6 % (40.0-50.0); HGB 13.6 g/dL (13.5-17.5); Immature Grans % 0.4; Lymphocytes % 20.8; MCH 30.2 pg (27.0-33.0); MCHC 33.5 % (32.0-36.0); MCV 90.2 fL (80-95); MPV 10.5 fL (8.0-11.0); Monocytes % 11.8; Nucleated RBC 0 %; Platelet Count 259 10^3/uL (130-400); RDW 13.6 % (11.8-14.1); WBC 7.18 10^3/uL (4.4-10.8)
[2020-05-14 09:41] LABS: ALT 32 U/L (16-63); AST 32 U/L (15-37); Albumin 4.1 g/dL (3.4-5.0); Alkaline Phosphatase 102 U/L (46-116); Anion Gap 9.3 mmol/L (3-11); BUN 25 mg/dL (7-18); Bilirubin, Total 0.7 mg/dL (0.2-1.0); CO2 23.7 mmol/L (21.0-32.0); Calcium 8.4 mg/dL (8.5-10.1); Chloride 104 mmol/L (98-107); Estimated GFR 40.16 (mL/min/1.73m2); Glucose 96 mg/dL (74-106); Sodium 137 mmol/L (136-145); Total Protein 7.8 g/dL (6.4-8.2)
[2020-05-22 14:56] LABS: Indication for Study CML
[2020-05-22 14:57] LABS: Specimen Type Peripheral blood
[2020-05-22 14:58] LABS: BCR-ABL1 p210 FusionTranscript See Comments
[2020-05-22 14:59] LABS: BCR-ABL1 Interpretation See Comments; Limitations and Disclaimers See Comments
== END 2020-05-14 04:15 ==
PROVIDERS: PCP Family Medicine; Visit Provider Internal Medicine Hematology & Oncology
DX: C92.10 Chronic myeloid leukemia, BCR/ABL-positive, not having achieved remission (principal)
CPT/HCPCS: 80053; 81206; 85025

== ENCOUNTER → 2020-10-20 10:55 | Outpatient (BNVA) | payer MEDICARE, SELFPAY | PROVIDERS: PCP Family Medicine; Referring Provider Family Medicine; Visit Provider Internal Medicine Cardiovascular Disease | DX: I50.9 Heart failure, unspecified (principal); I10 Essential (primary) hypertension; I20.8 Other forms of angina pectoris; R00.0 Tachycardia, unspecified; E78.5 Hyperlipidemia, unspecified | CPT/HCPCS: 99214 ==

== ENCOUNTER 2020-11-26 02:25 | Outpatient (CLI) | payer MEDICARE, SELFPAY ==
[2020-11-27 14:04] LABS: COVID-19 RT-PCR UVMMC Result Negative (Negative)
== END 2020-11-26 02:26 | disposition home or self-care (01) ==
PROVIDERS: PCP Family Medicine; Visit Provider Family Medicine
DX: Z20.822 Contact with and (suspected) exposure to COVID-19 (principal); R05 Cough
CPT/HCPCS: U0003; U0005

== ENCOUNTER 2020-12-10 03:46 | Outpatient (CLI) | payer MEDICARE, SELFPAY ==
[2020-12-10 12:36] LABS: Abs Immature Grans 0.04 10^3/uL (0.0-0.06); Absolute Basophil Count 0.06 10^3/uL (0.0-0.2); Absolute Eosinophil Count 0.33 10^3/uL (0.0-0.7); Absolute Monocyte Count 0.92 10^3/uL (0.1-0.8); Absolute Neutrophil Count 5.13 10^3/uL (1.2-6.7); Basophils % 0.7; Eosinophils % 3.8; HCT 40.2 % (40.0-50.0); HGB 12.9 g/dL (13.5-17.5); Immature Grans % 0.5; Lymphocytes % 25.3; MCH 28.4 pg (27.0-33.0); MCHC 32.1 % (32.0-36.0); MCV 88.5 fL (80-95); MPV 9.7 fL (8.0-11.0); Monocytes % 10.6; Neutrophils % 59.1; Nucleated RBC 0 %; Platelet Count 314 10^3/uL (130-400); RBC 4.54 10^6/uL (4.36-5.78); RDW 14.1 % (11.8-14.1); RDW-SD 45.6 fL; WBC 8.68 10^3/uL (4.4-10.8)
[2020-12-10 12:48] LABS: ALT 21 U/L (16-63); AST 23 U/L (15-37); Albumin 3.8 g/dL (3.4-5.0); Alkaline Phosphatase 104 U/L (46-116); Anion Gap 10.9 mmol/L (3-11); BUN 23 mg/dL (7-18); Bilirubin, Total 0.5 mg/dL (0.2-1.0); CO2 24.1 mmol/L (21.0-32.0); CREATININE 1.7 mg/dL (0.70-1.30); Calcium 8.4 mg/dL (8.5-10.1); Chloride 107 mmol/L (98-107); Estimated GFR 40.04 (mL/min/1.73m2); Glucose 136 mg/dL (74-106); Potassium 4.1 mmol/L (3.5-5.1); Sodium 142 mmol/L (136-145); Total Protein 7.4 g/dL (6.4-8.2)
[2020-12-31 11:17] LABS: Indication for Study CML
[2020-12-31 11:18] LABS: Specimen Type Peripheral blood
[2020-12-31 11:19] LABS: BCR-ABL1 Interpretation See Comments; BCR-ABL1 p210 FusionTranscript See Comments
[2020-12-31 11:20] LABS: Limitations and Disclaimers See Comments
== END 2020-12-10 03:47 | disposition home or self-care (01) ==
LOC: LBO 03:47
PROVIDERS: PCP Family Medicine; Visit Provider Internal Medicine Hematology & Oncology
DX: C92.10 Chronic myeloid leukemia, BCR/ABL-positive, not having achieved remission (principal)
CPT/HCPCS: 36415; 80053; 81206; 85025

== ENCOUNTER 2021-02-17 12:31 | Outpatient (CLI) | payer MEDICARE, SELFPAY ==
[2021-02-17 11:42] LABS: Abs Immature Grans 0.02 10^3/uL (0.0-0.06); Absolute Basophil Count 0.05 10^3/uL (0.0-0.2); Absolute Eosinophil Count 0.23 10^3/uL (0.0-0.7); Absolute Lymphocyte Count 1.72 10^3/uL (1.2-3.4); Absolute Monocyte Count 0.77 10^3/uL (0.1-0.8); Absolute Neutrophil Count 4.04 10^3/uL (1.2-6.7); Basophils % 0.7; Eosinophils % 3.4; HGB 12.7 g/dL (13.5-17.5); Immature Grans % 0.3; Lymphocytes % 25.2; MCH 28.6 pg (27.0-33.0); MCHC 32.6 % (32.0-36.0); MCV 87.8 fL (80-95); Monocytes % 11.3; Neutrophils % 59.1; Nucleated RBC 0 %; Platelet Count 279 10^3/uL (130-400); RBC 4.44 10^6/uL (4.36-5.78); RDW 14.4 % (11.8-14.1); RDW-SD 46.8 fL; WBC 6.83 10^3/uL (4.4-10.8)
[2021-02-17 11:55] LABS: ALT 27 U/L (16-63); AST 29 U/L (15-37); Alkaline Phosphatase 92 U/L (46-116); Anion Gap 8.8 mmol/L (3-11); BUN 18 mg/dL (7-18); Bilirubin, Total 0.5 mg/dL (0.2-1.0); CO2 24.2 mmol/L (21.0-32.0); CREATININE 1.4 mg/dL (0.70-1.30); Calcium 8.4 mg/dL (8.5-10.1); Chloride 107 mmol/L (98-107); Glucose 91 mg/dL (74-106); Sodium 140 mmol/L (136-145); Total Protein 7.4 g/dL (6.4-8.2)
[2021-02-25 10:35] LABS: Indication for Study CML
[2021-02-25 10:36] LABS: BCR-ABL1 Interpretation See Comments; BCR-ABL1 p210 FusionTranscript See Comments; Limitations and Disclaimers See Comments; Specimen Type Blood
== END 2021-02-17 12:32 | disposition home or self-care (01) ==
PROVIDERS: PCP Family Medicine; Visit Provider Internal Medicine Hematology & Oncology
DX: C92.10 Chronic myeloid leukemia, BCR/ABL-positive, not having achieved remission (principal)
CPT/HCPCS: 36415; 80053; 81206; 85025

== ENCOUNTER 2021-05-05 04:18 | Outpatient (CLI) | payer MEDICARE, SELFPAY ==
[2021-05-05 09:47] LABS: Abs Immature Grans 0.04 10^3/uL (0.0-0.06); Absolute Basophil Count 0.11 10^3/uL (0.0-0.2); Absolute Eosinophil Count 0.38 10^3/uL (0.0-0.7); Absolute Lymphocyte Count 1.91 10^3/uL (1.2-3.4); Absolute Monocyte Count 0.87 10^3/uL (0.1-0.8); Absolute Neutrophil Count 4.78 10^3/uL (1.2-6.7); Basophils % 1.4; Eosinophils % 4.7; HCT 41.4 % (40.0-50.0); HGB 13.3 g/dL (13.5-17.5); Immature Grans % 0.5; Lymphocytes % 23.6; MCH 28.1 pg (27.0-33.0); MCHC 32.1 % (32.0-36.0); MCV 87.5 fL (80-95); MPV 9.9 fL (8.0-11.0); Monocytes % 10.8; Nucleated RBC 0 %; Platelet Count 314 10^3/uL (130-400); RBC 4.73 10^6/uL (4.36-5.78); RDW 13.8 % (11.8-14.1); RDW-SD 44.3 fL; WBC 8.09 10^3/uL (4.4-10.8)
[2021-05-05 10:25] LABS: ALT 29 U/L (16-63); AST 31 U/L (15-37); Albumin 4.3 g/dL (3.4-5.0); Alkaline Phosphatase 113 U/L (46-116); Anion Gap 9.5 mmol/L (3-11); BUN 28 mg/dL (7-18); Bilirubin, Total 0.5 mg/dL (0.2-1.0); CO2 24.5 mmol/L (21.0-32.0); CREATININE 1.6 mg/dL (0.70-1.30); Chloride 106 mmol/L (98-107); Estimated GFR 42.95 (mL/min/1.73m2); Glucose 120 mg/dL (74-106); Potassium 4.3 mmol/L (3.5-5.1); Sodium 140 mmol/L (136-145); Total Protein 7.6 g/dL (6.4-8.2)
[2021-05-14 11:22] LABS: Indication for Study CML
[2021-05-14 11:23] LABS: BCR-ABL1 p210 FusionTranscript See Comments; Specimen Type Peripheral blood
[2021-05-14 11:25] LABS: BCR-ABL1 Interpretation See Comments; Limitations and Disclaimers See Comments
== END 2021-05-05 04:19 | disposition home or self-care (01) ==
LOC: LBO 04:18
PROVIDERS: PCP Family Medicine; Visit Provider Internal Medicine Hematology & Oncology
DX: C92.10 Chronic myeloid leukemia, BCR/ABL-positive, not having achieved remission (principal)
CPT/HCPCS: 36415; 80053; 81206; 85025

== ENCOUNTER → 2021-10-20 10:41 | Outpatient (BNVA) | payer MEDICARE, SELFPAY | PROVIDERS: PCP Family Medicine; Referring Provider Family Medicine; Visit Provider Internal Medicine Cardiovascular Disease | DX: R00.2 Palpitations (principal); I25.5 Ischemic cardiomyopathy; I50.9 Heart failure, unspecified; I25.10 Atherosclerotic heart disease of native coronary artery without angina pectoris | CPT/HCPCS: 99214 ==

== ENCOUNTER 2021-11-18 04:12 | Outpatient (CLI) | payer MEDICARE, SELFPAY ==
--- NOTE | 2021-12-08 09:06 | CER_ITS ---
Date of service: 12/08/21 Time of Service: 09:06 Cardiac Event Recorder Referring Provider:: Sonam Samayoa Indications:: Congestive heart failure Cardiac Event Note: This is a 14-day quality assurance monitor. Predominant rhythm is sinus with an average heart rate overall of 54. Minimum was 43, maximum 115 There was no atrial fibrillation, no high-grade AV block, no pauses greater than 3 seconds There were rare ventricular ectopic beats. Two runs of accelerated idioventricular rhythm were recorded,, rate approximately 70, asymptomatic There were occasional atrial premature beats. There was no significant supraventricular tachycardia Patient symptoms were reported. 1 incident corresponded to sinus tachycardia at 102. All others generally corresponded to sinus rhythm in the 50s
== END 2021-11-18 04:13 | disposition home or self-care (01) ==
PROVIDERS: PCP Family Medicine; Visit Provider Internal Medicine Cardiovascular Disease
DX: R00.2 Palpitations; I50.9 Heart failure, unspecified; I49.5 Sick sinus syndrome
CPT/HCPCS: 93246

== ENCOUNTER 2021-11-23 08:07 | Outpatient (CLI) | payer MEDICARE, SELFPAY ==
[2021-11-23 12:48] LABS: HCT 39.7 % (40.0-50.0); HGB 12.6 g/dL (13.5-17.5); MCH 28.2 pg (27.0-33.0); MCHC 31.7 % (32.0-36.0); MCV 89 fL (80-95); MPV 10.7 fL (8.0-11.0); Platelet Count 259 10^3/uL (130-400); RBC 4.47 10^6/uL (4.36-5.78); RDW 14.7 % (11.8-14.1); RDW-SD 46.9 fL; WBC 8.23 10^3/uL (4.4-10.8)
[2021-11-23 13:25] LABS: ALT 23 U/L (16-63); AST 26 U/L (15-37); Albumin 4.1 g/dL (3.4-5.0); Alkaline Phosphatase 90 U/L (46-116); Anion Gap 10.8 mmol/L (3-11); BUN 25 mg/dL (7-18); Bilirubin, Total 0.4 mg/dL (0.2-1.0); CO2 24.2 mmol/L (21.0-32.0); Calcium 8.7 mg/dL (8.5-10.1); Chloride 105 mmol/L (98-107); Glucose 135 mg/dL (74-106); Potassium 3.5 mmol/L (3.5-5.1); Sodium 140 mmol/L (136-145); TSH (W/Ref FT4) 2.98 uIU/mL (0.36-3.74); Total Protein 7.7 g/dL (6.4-8.2)
[2021-11-23 14:54] LABS: Calculated LDL 53 mg/dL (<100); Cholesterol 121 mg/dL (<200); HDL Cholesterol 32 mg/dL (40-60); Triglyceride 184 mg/dL (<150)
[2021-11-24 09:00] LABS: PSA, Diagnostic 4.4 ng/mL (<=6.5)
== END 2021-11-23 08:08 | disposition home or self-care (01) ==
LOC: LOS 08:08
PROVIDERS: PCP Family Medicine; Referring Provider Family Medicine; Visit Provider Family Medicine
DX: I25.10 Atherosclerotic heart disease of native coronary artery without angina pectoris (principal); I25.5 Ischemic cardiomyopathy; N40.0 Benign prostatic hyperplasia without lower urinary tract symptoms; R00.2 Palpitations; F41.9 Anxiety disorder, unspecified; Z86.010 Personal history of colon polyps
CPT/HCPCS: 36415; 80053; 80061; 85027; 84153; 84443

== ENCOUNTER → 2021-11-24 01:40 | Outpatient (CLI) | payer MEDICARE, SELFPAY ==
--- NOTE | 2021-11-24 07:00 | DI.RAD_ITS ---
Exam(s) XR CHEST 2V PA LATERAL EXAM: XR CHEST 2V PA LATERAL CLINICAL HISTORY: SOB,CHF,I50.9. TECHNIQUE: 2D digital imaging was performed. COMPARISON: CR XR CHEST 2V PA LATERAL from 05/09/2019 FINDINGS: 2 views: Cardiomegaly again noted Mediastinum not widened. Anterior chest wall loop detector noted this is a different device than was present on 05/09/2019. Moderate size right pleural effusion again noted. This has not decreased in size. Indeed is somewha t larger than 1019. Mild atelectasis in the right lung base. Remainder of the right lung is clear a nd there are no findings on the left side nor left-sided pleural effusion. Incidentally noted is calcific rotator cuff tendinitis in the right shoulder, as was also evident in 2019. IMPRESSION: Moderate size right pleural effusion, slightly larger than previous. No airspace pulmonary edema. N o pleural effusion on the opposite-left side.Appropriate follow-up recommended. Mild cardiomegaly. DATA REPOSITORY: RADIATION DOSE DELIVERED:
== END ==
PROVIDERS: PCP Family Medicine; Visit Provider Family Medicine
DX: I50.9 Heart failure, unspecified (principal); J90 Pleural effusion, not elsewhere classified; I51.7 Cardiomegaly
CPT/HCPCS: 71046

== ENCOUNTER 2021-12-08 09:06 | Outpatient (CLI) | payer MEDICARE, SELFPAY | END 2021-12-08 09:07 | LOC: CARDO 12-28 11:02 | PROVIDERS: PCP Family Medicine; Referring Provider Family Medicine; Visit Provider Internal Medicine Cardiovascular Disease | DX: R00.2 Palpitations (principal); I50.9 Heart failure, unspecified; I49.5 Sick sinus syndrome | CPT/HCPCS: 93248 ==

== ENCOUNTER → 2021-12-09 01:15 | Outpatient (CLI) | payer MEDICARE, SELFPAY ==
--- NOTE | 2021-12-09 07:30 | DI.US_ITS ---
APPROVED REPORT EXAM: Comprehensive 2D, Doppler, and color-flow Echocardiogram Patient Location: Out-Patient Type Copy Examiner: Marce King RDCS (AE) Indications: LV function, palpitations, cardiomyopathy, CHF Other Information Study Quality: Adequate Conclusion Normal left ventricular wall thickness and chamber size. Estimated ejection fraction is 50 to 55%. Apical wall motion abnormalities are noted Normal right ventricular size and systolic function Both atria are moderately dilated Aortic valve is trileaflet and sclerotic without stenosis or regurgitation Mild mitral annular calcification. Mild mitral regurgitation Normal tricuspid valve with moderate regurgitation. Estimated right ventricular systolic pressure is 37 mmHg Wall motion Left Ventricle The left ventricle is normal size. Left ventricular systolic function is borderline. There is normal left ventricular wall thickness. Regional wall motion abnormalities are noted. There is no ventricula r septal defect visualized. LVEF is 52%. Right Ventricle The right ventricle is normal size. The right ventricular systolic function is normal. The RVSP is 36 .7 mmHg. Atria Left atrium is moderately dilated. Right atrium is moderately dilated. The interatrial septum is inta ct with no evidence for an atrial septal defect. Aortic Valve The Aortic valve is sclerotic. Aortic valve is trileaflet. There is no aortic valvular stenosis. No a ortic regurgitation is present. Mitral Valve Mild mitral annular calcification. No evidence of mitral valve stenosis. Mild mitral regurgitation. Tricuspid Valve The tricuspid valve is normal in structure. There is no tricuspid valve stenosis. Moderate tricuspid regurgitation. Pulmonic Valve The pulmonary valve is normal in structure. There is no pulmonic valvular stenosis. There is no pulmo martina valvular regurgitation. Great Vessels The aortic root is normal in size. The ascending aorta is normal in size. Aortic arch is not well vis ualized. IVC is normal in size and collapses >50% with inspiration. Pericardium There is no pericardial effusion. 2D Dimensions IVSD d PLAX 1.06 cm M: 0.6-1.2 LV Vol A2C d MOD 162.0 mL LVPW d PLAX 1.17 cm M: 0.6 - 1.2 LV Vol A4C d MOD 163.8 mL LVID d PLAX 5.39 cm M: 4.2 - 5.8 LA vol/ BSA A2C s A-L 56.6 mL/m2 LVDs 3.90 cm M: 2.5 - 4.0 LA vol/ BSA A4C s A-L 56.2 mL/m2 Ao Root d 3.01 cm M: 3.1 - 3.7 LA Vol/ BSA Biplane s A-L 61.4 mL/m2 RA Area A4C 27.22 cm2 LA Area A4C s MOD 30.65 cm2 RA Vol/ BSA A4C s A-L 47.4 mL/m2 LA Area A2C s MOD 28.26 cm2 Ao Asc Diam d 3.47 cm M: 2.6 - 3.4 LV EF A4C MOD 51.1 % LV EF Teichholz 52.1 % LV EF A2C MOD 52.9 % LVEF (Dickey's) 51.73 % M: 52 - 72 LV EF Biplane MOD 51.7 % LV Volume 123.30 mL M: 62 - 150 SV 85.01 mL LV Volume Index 61.65 mL/m2 M: 34 - 74 SV Index 42.54 mL/m2 LV Vol Biplane MOD 164.4 mL FS 26.90 % M-Mode TAPSE 2.48 cm (M/F) >1.7 LV Diastology MV E' medial 0.060 (>0.07 m/s) E/A Ratio 1.9 LV E/e MED 17.50 (<14) MV E Vmax 1.06 (0.4-1.3 m/s) MV E' lateral 0.106 (>0.1 m/s) MV A Vmax 0.55 (0.4-1.3 m/s) LV E/e LAT 9.95 (<14) MV E/A Ratio 1.90 MV E/E' medial 17.53 MV E/E' lateral 9.98 Aortic Valve LVOT Area 2.90 cm2 AoV Area Vmax 2.01 cm2 LVOT Vmax 1.21 m/s AoV Area/ BSA (Vmax) 1.00 cm2/m2 LVOT Mean Judah. 0.72 m/s JOHNSON Mean Judah. 1.77 cm2 LVOT Peak Grad 5.9 mmHg JOHNSON Mean Judah. Index 0.89 cm2/m2 LVOT Mean Grad 2.6 mmHg LVOT VTI 0.298 m LVOT Diam s 1.90 cm AoV Vmax 1.76 m/s Velocity Ratio 0.68 AoV Mean Judah. 1.18 m/s AoV Peak Grad 12.3 mmHg LVOT SV 86.45 mL AoV Mean Grad 6.4 mmHg AoV VTI 0.395 m AoV Area VTI 2.19 cm2 AoV Area/ BSA (VTI) 1.10 cm/m2 Mitral Valve MV DT 246 (160-240 msec) MV PHT 71 msec MV Area PHT 3.08 cm2 MV VTI 0.451 m MV VTI Annulus 0.452 m MV Area VTI 1.93 (4.0-6.0 cm2) Pulmonary Valve PV Vmax 1.02 (0.5-1.5 m/s) RVOT Peak Gr. 2.07 mmHg PV Peak Grad 4.2 mmHg RVOT Mean Gr. 0.95 mmHg PV Mean Grad 2.0 mmHg RVOT VTI 0.158 m PV VTI 0.224 m RVOT Vmax 0.72 m/s Tricuspid Valve TR Peak Grad 33.6 mmHg TR Vmax 2.90 m/s RA Pressure 3.00 mmHg RVSP (TR) 36.7 mmHg
== END ==
PROVIDERS: PCP Family Medicine; Visit Provider Internal Medicine Cardiovascular Disease
DX: I25.5 Ischemic cardiomyopathy (principal); I50.9 Heart failure, unspecified; R00.2 Palpitations
CPT/HCPCS: 93306

== ENCOUNTER 2021-12-17 09:28 | Outpatient (CLI) | payer MEDICARE, SELFPAY ==
--- NOTE | 2021-12-17 09:15 | RT.EKG_ITS ---
APPROVED REPORT Exam: Resting ECG Reason for Exam: palpitations Patient Location: O HR:50 bpm ECG Measurements Heart Rate 50 AXIS CA 163 P 78 QRSd 113 QRS -12 QT 459 T 75 QTc 419 Conclusion Sinus rhythm...normal P axis, V-rate 50- 99 Consider inferior infarct...Q >35mS in II III aVF Anterior infarct, old...Q >40mS, abnormal ST-T, V2-V5
== END 2021-12-17 09:29 | disposition home or self-care (01) ==
LOC: DI.CARD 09:28
PROVIDERS: PCP Family Medicine; Visit Provider Internal Medicine Cardiovascular Disease
DX: R00.2 Palpitations (principal); R94.31 Abnormal electrocardiogram [ECG] [EKG]; I25.2 Old myocardial infarction
CPT/HCPCS: 93010

== ENCOUNTER → 2021-12-17 09:51 | Outpatient (BNVA) | payer MEDICARE, SELFPAY | PROVIDERS: PCP Family Medicine; Referring Provider Family Medicine; Visit Provider Internal Medicine Cardiovascular Disease | DX: R00.2 Palpitations (principal); I25.10 Atherosclerotic heart disease of native coronary artery without angina pectoris; I50.9 Heart failure, unspecified | CPT/HCPCS: 93005; 99214; 99213 ==

== ENCOUNTER → 2021-12-21 02:14 | Outpatient (CLI) | payer MEDICARE, SELFPAY ==
--- NOTE | 2021-12-21 08:54 | DI.RAD_ITS ---
Exam(s) XR CHEST 2V PA LATERAL EXAM: XR CHEST 2V PA LATERAL CLINICAL HISTORY: assess pleural effusion,j90. TECHNIQUE: 2D digital imaging was performed. COMPARISON: CR XR CHEST 2V PA LATERAL from 11/24/2021 FINDINGS: 2 views: Heart size is upper normal. The mediastinum is not widened. The size of the right pleural effusion is unchanged from 11/24/2021. Mild adjacent increased marking s in the right lung again noted. Left lung is clear and there is no pleural effusion on the left side. No airspace pulmonary edema. No pneumothorax. IMPRESSION: Right pleural effusion is unchanged in size from 11/24/2021 (moderate size). DATA REPOSITORY: RADIATION DOSE DELIVERED:
== END ==
PROVIDERS: PCP Family Medicine; Visit Provider Family Medicine
DX: J90 Pleural effusion, not elsewhere classified (principal)
CPT/HCPCS: 71046

== ENCOUNTER 2022-01-05 08:05 | Outpatient (RCR) | payer SELFPAY ==
[2021-12-15 09:17] VITALS: BP 110/56; PULSE 51
[2021-12-17 08:37] VITALS: BP 121/60; PULSE 53
[2021-12-22 08:39] VITALS: BP 121/62; PULSE 46
[2022-01-05 08:10] VITALS: BP 109/55; PULSE 51
== END 2022-01-10 23:59 | disposition home or self-care (01) ==
LOC: CR 08:05
PROVIDERS: PCP Family Medicine; Referring Provider Internal Medicine Cardiovascular Disease; Visit Provider Internal Medicine Cardiovascular Disease
DX: R69 Illness, unspecified (principal)

== ENCOUNTER 2022-02-04 08:03 | Outpatient (RCR) | payer SELFPAY ==
[2022-01-11 00:23] VITALS: BP 109/55; PULSE 51
[2022-01-12 08:20] VITALS: BP 135/64; PULSE 51
[2022-01-14 08:08] VITALS: BP 157/64; PULSE 53
[2022-01-19 08:09] VITALS: BP 117/60; PULSE 48
[2022-01-21 09:12] VITALS: BP 146/66; PULSE 47
[2022-01-26 08:52] VITALS: BP 167/60; PULSE 49
[2022-02-02 08:04] VITALS: BP 122/52; PULSE 47
[2022-02-04 08:00] VITALS: BP 157/57; PULSE 51
== END 2022-02-10 23:59 | disposition home or self-care (01) ==
LOC: CR 08:03
PROVIDERS: PCP Family Medicine; Referring Provider Internal Medicine Cardiovascular Disease; Visit Provider Internal Medicine Cardiovascular Disease
DX: R69 Illness, unspecified (principal)

== ENCOUNTER 2022-02-04 12:31 | Outpatient (CLI) | payer MEDICARE, SELFPAY ==
[2022-02-04 09:35] LABS: Abs Immature Grans 0.01 10^3/uL (0.0-0.06); Absolute Basophil Count 0.09 10^3/uL (0.0-0.2); Absolute Eosinophil Count 0.34 10^3/uL (0.0-0.7); Absolute Lymphocyte Count 1.31 10^3/uL (1.2-3.4); Absolute Monocyte Count 0.88 10^3/uL (0.1-0.8); Absolute Neutrophil Count 5.15 10^3/uL (1.2-6.7); Basophils % 1.2; Eosinophils % 4.4; HCT 39.9 % (40.0-50.0); HGB 12.9 g/dL (13.5-17.5); Immature Grans % 0.1; Lymphocytes % 16.8; MCH 27.6 pg (27.0-33.0); MCHC 32.3 % (32.0-36.0); MCV 85 fL (80-95); MPV 10.4 fL (8.0-11.0); Monocytes % 11.3; Neutrophils % 66.2; Platelet Count 271 10^3/uL (130-400); RBC 4.67 10^6/uL (4.36-5.78); RDW 15.3 % (11.8-14.1); RDW-SD 47.8 fL; WBC 7.78 10^3/uL (4.4-10.8)
[2022-02-04 10:02] LABS: ALT 24 U/L (16-63); AST 23 U/L (15-37); Albumin 4.1 g/dL (3.4-5.0); Alkaline Phosphatase 93 U/L (46-116); Anion Gap 9.8 mmol/L (3-11); BUN 23 mg/dL (7-18); Bilirubin, Total 0.5 mg/dL (0.2-1.0); CO2 25.2 mmol/L (21.0-32.0); CREATININE 1.9 mg/dL (0.70-1.30); Calcium 8.8 mg/dL (8.5-10.1); Chloride 105 mmol/L (98-107); Estimated GFR 35.12 (mL/min/1.73m2); Glucose 111 mg/dL (74-106); Potassium 4.2 mmol/L (3.5-5.1); Sodium 140 mmol/L (136-145); Total Protein 8.1 g/dL (6.4-8.2)
[2022-02-11 12:10] LABS: Indication for Study CML; Specimen Type Peripheral blood
[2022-02-11 12:11] LABS: BCR-ABL1 p210 FusionTranscript See Comments
[2022-02-11 12:12] LABS: BCR-ABL1 Interpretation See Comments
[2022-02-11 12:16] LABS: Limitations and Disclaimers See Comments
== END 2022-02-04 12:32 | disposition home or self-care (01) ==
LOC: LBO 12:35
PROVIDERS: PCP Family Medicine; Visit Provider Internal Medicine Hematology & Oncology
DX: C92.10 Chronic myeloid leukemia, BCR/ABL-positive, not having achieved remission (principal)
CPT/HCPCS: 36415; 80053; 81206; 85025

== ENCOUNTER 2022-03-11 08:16 | Outpatient (RCR) | payer SELFPAY ==
[2022-02-11 00:21] VITALS: BP 157/57; PULSE 51
[2022-02-23 08:06] VITALS: BP 158/68; PULSE 51
[2022-02-25 08:03] VITALS: BP 122/54; PULSE 50
[2022-03-02 08:05] VITALS: BP 156/63; PULSE 53
[2022-03-04 07:53] VITALS: BP 129/66; PULSE 51
[2022-03-09 08:12] VITALS: BP 148/65; PULSE 52
[2022-03-11 08:03] VITALS: BP 113/50; PULSE 52
== END 2022-03-12 23:59 | disposition home or self-care (01) ==
LOC: CR 08:16
PROVIDERS: PCP Family Medicine; Referring Provider Internal Medicine Cardiovascular Disease; Visit Provider Internal Medicine Cardiovascular Disease
DX: R69 Illness, unspecified (principal)

== ENCOUNTER 2022-04-06 08:00 | Outpatient (RCR) | payer SELFPAY ==
[2022-03-13 00:12] VITALS: BP 113/50; PULSE 52
[2022-03-18 08:01] VITALS: BP 161/97; PULSE 70
[2022-04-01 08:22] VITALS: BP 117/64; PULSE 50
[2022-04-06 08:29] VITALS: BP 114/69; PULSE 66
== END 2022-04-12 23:59 | disposition home or self-care (01) ==
LOC: CR 08:00
PROVIDERS: PCP Family Medicine; Referring Provider Internal Medicine Cardiovascular Disease; Visit Provider Internal Medicine Cardiovascular Disease
DX: R69 Illness, unspecified (principal)

== ENCOUNTER → 2022-04-22 13:21 | Outpatient (BNVA) | payer MEDICARE, SELFPAY | PROVIDERS: PCP Family Medicine; Visit Provider Internal Medicine Cardiovascular Disease | DX: R00.2 Palpitations (principal); I25.10 Atherosclerotic heart disease of native coronary artery without angina pectoris; I25.5 Ischemic cardiomyopathy | CPT/HCPCS: 99214 ==

== ENCOUNTER → 2022-04-29 12:25 | Outpatient (CLI) | payer MEDICARE, SELFPAY ==
--- NOTE | 2022-04-29 11:30 | DI.MRI_ITS ---
Exam(s) MR BRAIN WO EXAM: MR BRAIN WO CLINICAL HISTORY: episodes of TIA symptoms, G45.9 TECHNIQUE: Multiplanar multisequence MRI of the brain was performed. COMPARISON: No exams were available for comparison FINDINGS: There is mild generalized cerebral atrophy. Minimal areas of signal abnormality are noted bilaterally in periventricular white matter consistent with mild microvascular ischemic changes.. The orbital and temporal bone structures appear intact as does the pituitary. Diffusion weighted imaging shows tiny focus of apparent restricted diffusion which corresponds to an ADC map low signal focus, this lies in the inferior right frontal lobe. No other significant diffusi on restriction seen . Susceptibility weighted imaging shows no evidence of intracranial hemorrhage. There is normal flow void in the [place] vasculature. There is marked mucoperiosteal thickening and free fluid in maxillary antra consistent with chronic s inusitis. IMPRESSION: Probable tiny right inferior frontal lobe acute versus subacute infarction . Bilateral acute/chronic maxillary sinusitis. DATA REPOSITORY:
== END ==
PROVIDERS: PCP Family Medicine; Visit Provider Family Medicine
DX: G45.9 Transient cerebral ischemic attack, unspecified (principal); J01.00 Acute maxillary sinusitis, unspecified; J32.0 Chronic maxillary sinusitis
CPT/HCPCS: 70551

== ENCOUNTER → 2022-10-21 12:46 | Outpatient (BNVA) | payer MEDICARE, SELFPAY | PROVIDERS: PCP Family Medicine; Visit Provider Internal Medicine Cardiovascular Disease | DX: Z79.02 Long term (current) use of antithrombotics/antiplatelets (principal); I50.9 Heart failure, unspecified; I25.10 Atherosclerotic heart disease of native coronary artery without angina pectoris; I25.5 Ischemic cardiomyopathy | CPT/HCPCS: 99214 ==

== ENCOUNTER 2022-11-09 08:20 | Outpatient (RCR) | payer SELFPAY ==
[2022-04-13 00:06] VITALS: BP 114/69; PULSE 66
[2022-10-14 08:20] VITALS: BP 122/65; PULSE 78
[2022-10-19 08:10] VITALS: BP 110/65; PULSE 77
[2022-10-21 08:11] VITALS: BP 117/65; PULSE 75
[2022-10-26 08:32] VITALS: BP 109/64; PULSE 68
[2022-10-28 08:14] VITALS: BP 114/64; PULSE 61
[2022-11-02 08:37] VITALS: BP 120/63; PULSE 76
[2022-11-04 08:35] VITALS: BP 124/70; PULSE 71
[2022-11-09 08:33] VITALS: BP 124/76; PULSE 71
== END 2022-11-10 23:59 | disposition home or self-care (01) ==
LOC: CR 08:20
PROVIDERS: PCP Family Medicine; Referring Provider Internal Medicine Cardiovascular Disease; Visit Provider Internal Medicine Cardiovascular Disease

== ENCOUNTER 2022-11-18 15:34 | Outpatient (CLI) | payer MEDICARE, SELFPAY ==
[2022-11-18 09:24] LABS: Abs Immature Grans 0.02 10^3/uL (0.0-0.06); Absolute Basophil Count 0.09 10^3/uL (0.0-0.2); Absolute Lymphocyte Count 1.43 10^3/uL (1.2-3.4); Absolute Monocyte Count 0.88 10^3/uL (0.1-0.8); Absolute Neutrophil Count 5.55 10^3/uL (1.2-6.7); Basophils % 1.1; Eosinophils % 5.9; HCT 36.8 % (40.0-50.0); HGB 11.9 g/dL (13.5-17.5); Immature Grans % 0.2; Lymphocytes % 16.9; MCHC 32.3 % (32.0-36.0); MCV 84 fL (80-95); MPV 9.9 fL (8.0-11.0); Monocytes % 10.4; Neutrophils % 65.5; Platelet Count 317 10^3/uL (130-400); RDW 15.2 % (11.8-14.1); RDW-SD 46.3 fL; WBC 8.47 10^3/uL (4.4-10.8)
[2022-11-18 09:47] LABS: ALT 18 U/L (16-63); AST 26 U/L (15-37); Albumin 4.1 g/dL (3.4-5.0); Alkaline Phosphatase 108 U/L (46-116); Anion Gap 8.9 mmol/L (3-11); BUN 38 mg/dL (7-18); Bilirubin, Total 0.5 mg/dL (0.2-1.0); CO2 27.1 mmol/L (21.0-32.0); CREATININE 2.5 mg/dL (0.70-1.30); Calcium 8.9 mg/dL (8.5-10.1); Chloride 102 mmol/L (98-107); Estimated GFR 26.63 (mL/min/1.73m2); Glucose 126 mg/dL (74-106); Sodium 138 mmol/L (136-145); TSH (W/Ref FT4) 2.99 uIU/mL (0.36-3.74); Total Protein 8.1 g/dL (6.4-8.2); Uric Acid 5.8 mg/dL (3.5-7.2)
[2022-11-18 10:35] LABS: Calculated LDL 57 mg/dL (<100); Cholesterol 129 mg/dL (<200); HDL Cholesterol 37 mg/dL (40-60); Triglyceride 176 mg/dL (<150); Vitamin B12 276 pg/mL (193-986)
[2022-11-22 08:46] LABS: Indication for Study CML
[2022-11-22 08:47] LABS: BCR-ABL1 p210 FusionTranscript See Comments; Specimen Type Blood
[2022-11-22 08:49] LABS: BCR-ABL1 Interpretation See Comments
[2022-11-22 08:52] LABS: Limitations and Disclaimers See Comments
== END 2022-11-18 15:35 | disposition home or self-care (01) ==
PROVIDERS: PCP Family Medicine; Visit Provider Internal Medicine Hematology & Oncology
DX: E03.9 Hypothyroidism, unspecified (principal); I25.10 Atherosclerotic heart disease of native coronary artery without angina pectoris; K25.9 Gastric ulcer, unspecified as acute or chronic, without hemorrhage or perforation; R00.2 Palpitations; I50.9 Heart failure, unspecified; E78.5 Hyperlipidemia, unspecified; M10.9 Gout, unspecified; I10 Essential (primary) hypertension; Z79.899 Other long term (current) drug therapy; C92.10 Chronic myeloid leukemia, BCR/ABL-positive, not having achieved remission
CPT/HCPCS: 80053; 80061; 81206; 82607; 84443; 84550; 85025

== ENCOUNTER 2022-11-30 03:24 | Outpatient (CLI) | payer MEDICARE, SELFPAY ==
[2022-11-30 15:47] LABS: Abs Immature Grans 0.03 10^3/uL (0.0-0.06); Absolute Basophil Count 0.05 10^3/uL (0.0-0.2); Absolute Eosinophil Count 0.52 10^3/uL (0.0-0.7); Absolute Monocyte Count 0.97 10^3/uL (0.1-0.8); Absolute Neutrophil Count 5.49 10^3/uL (1.2-6.7); Basophils % 0.6; Eosinophils % 6.1; HCT 36.8 % (40.0-50.0); HGB 11.9 g/dL (13.5-17.5); Immature Grans % 0.4; Lymphocytes % 16.5; MCH 26.6 pg (27.0-33.0); MCHC 32.3 % (32.0-36.0); MCV 82 fL (80-95); MPV 9.5 fL (8.0-11.0); Monocytes % 11.5; Neutrophils % 64.9; Platelet Count 292 10^3/uL (130-400); RBC 4.48 10^6/uL (4.36-5.78); RDW 15.1 % (11.8-14.1); RDW-SD 45.7 fL; WBC 8.46 10^3/uL (4.4-10.8)
[2022-11-30 17:05] LABS: ALT 22 U/L (16-63); AST 26 U/L (15-37); Albumin 4.2 g/dL (3.4-5.0); Alkaline Phosphatase 119 U/L (46-116); Anion Gap 12.1 mmol/L (3-11); BUN 32 mg/dL (7-18); Bilirubin, Total 0.4 mg/dL (0.2-1.0); CO2 25.9 mmol/L (21.0-32.0); CREATININE 2.4 mg/dL (0.70-1.30); Calcium 8.8 mg/dL (8.5-10.1); Chloride 104 mmol/L (98-107); Estimated GFR 27.97 (mL/min/1.73m2); Glucose 120 mg/dL (74-106); Potassium 4.1 mmol/L (3.5-5.1); Sodium 142 mmol/L (136-145); Total Protein 7.8 g/dL (6.4-8.2)
[2022-12-02 08:51] LABS: Indication for Study CML
[2022-12-02 08:52] LABS: BCR-ABL1 p210 FusionTranscript See Comments; Specimen Type Blood
[2022-12-02 08:53] LABS: BCR-ABL1 Interpretation See Comments
[2022-12-02 08:55] LABS: Limitations and Disclaimers See Comments
== END 2022-11-30 03:25 | disposition home or self-care (01) ==
LOC: LBO 03:24
PROVIDERS: PCP Family Medicine; Visit Provider Internal Medicine Hematology & Oncology
DX: C92.10 Chronic myeloid leukemia, BCR/ABL-positive, not having achieved remission (principal)
CPT/HCPCS: 36415; 80053; 81206; 85025

== ENCOUNTER 2022-12-06 16:28 | Outpatient (CLI) | payer MEDICARE, SELFPAY ==
--- NOTE | 2022-12-06 12:15 | DI.RAD_ITS ---
Exam(s) XR CERVICAL SPINE COMP 4-5V EXAM: XR CERVICAL SPINE COMP 4-5V CLINICAL HISTORY: rt radicular neck pain, m54.12. TECHNIQUE: 2D digital imaging was performed. Six images were obtained. AP, odontoid, lateral and parminder ateral oblique images were obtained. COMPARISON: No exams were available for comparison FINDINGS: The odontoid is intact. The lateral masses are well aligned. There is straightening of the normal ce rvical lordosis. This may be due to muscle spasm patient positioning. There is disc space narrowing at C5-6 and C6-C7. Endplate osteophytes and facet arthropathy is seen at multiple levels of the cer vical spine. No acute fracture or subluxation is present. Bilateral neural foraminal stenosis is see n at C5-6 and C6-C7. The cervical thoracic junction is well maintained. The prevertebral soft tissue s are unremarkable. Lung apices are clear. IMPRESSION: Cervical spondylosis. DATA REPOSITORY: RADIATION DOSE DELIVERED:
== END 2022-12-06 16:48 ==
LOC: DI 16:29
PROVIDERS: PCP Family Medicine; Visit Provider Family Medicine
DX: M54.12 Radiculopathy, cervical region (principal); M47.892 Other spondylosis, cervical region
CPT/HCPCS: 72050

== ENCOUNTER 2022-12-09 08:04 | Outpatient (RCR) | payer SELFPAY ==
[2022-11-11 00:11] VITALS: BP 124/76; PULSE 71
[2022-11-11 08:19] VITALS: BP 113/63; PULSE 68
[2022-11-16 08:00] VITALS: BP 102/57; PULSE 79
[2022-11-18 08:09] VITALS: BP 110/66; PULSE 67
[2022-11-23 08:26] VITALS: BP 116/61; PULSE 65
[2022-12-07 08:34] VITALS: BP 168/81; PULSE 65
[2022-12-09 10:31] VITALS: BP 136/66; PULSE 69
== END 2022-12-10 23:59 | disposition home or self-care (01) ==
LOC: CR 08:04
PROVIDERS: PCP Family Medicine; Referring Provider Internal Medicine Cardiovascular Disease; Visit Provider Internal Medicine Cardiovascular Disease
DX: R69 Illness, unspecified (principal)

== ENCOUNTER → 2022-12-30 14:34 | Outpatient (BNVA) | payer MEDICARE, SELFPAY | PROVIDERS: PCP Family Medicine; Referring Provider Family Medicine; Visit Provider Internal Medicine Cardiovascular Disease | DX: I25.10 Atherosclerotic heart disease of native coronary artery without angina pectoris (principal); I10 Essential (primary) hypertension; I25.5 Ischemic cardiomyopathy | CPT/HCPCS: 99214 ==

== ENCOUNTER 2023-01-06 08:00 | Outpatient (RCR) | payer SELFPAY ==
[2022-12-11 00:16] VITALS: BP 136/66; PULSE 69
[2022-12-16 08:06] VITALS: BP 113/58; PULSE 68
[2022-12-21 08:13] VITALS: BP 110/64; PULSE 70
[2022-12-23 08:26] VITALS: BP 120/60; PULSE 61
[2022-12-28 08:13] VITALS: BP 113/70; PULSE 69
[2022-12-30 08:09] VITALS: BP 121/62; PULSE 64
[2023-01-04 08:19] VITALS: BP 161/90; PULSE 74
[2023-01-06 08:24] VITALS: BP 119/68; PULSE 80
== END 2023-01-10 23:59 | disposition home or self-care (01) ==
LOC: CR 08:00
PROVIDERS: PCP Family Medicine; Referring Provider Internal Medicine Cardiovascular Disease; Visit Provider Internal Medicine Cardiovascular Disease
DX: R69 Illness, unspecified (principal)

== ENCOUNTER 2023-02-10 08:08 | Outpatient (RCR) | payer SELFPAY ==
[2023-01-11 00:06] VITALS: BP 119/68; PULSE 80
[2023-01-11 08:24] VITALS: BP 126/80; PULSE 74
[2023-01-25 08:30] VITALS: BP 118/68; PULSE 67
[2023-01-27 08:32] VITALS: BP 127/79; PULSE 77
[2023-02-01 08:06] VITALS: BP 145/84; PULSE 84
[2023-02-08 08:23] VITALS: BP 121/66; PULSE 68
[2023-02-10 08:16] VITALS: BP 120/69; PULSE 67
== END 2023-02-10 23:59 | disposition home or self-care (01) ==
LOC: CR 08:08
PROVIDERS: PCP Family Medicine; Referring Provider Internal Medicine Cardiovascular Disease; Visit Provider Internal Medicine Cardiovascular Disease
DX: R69 Illness, unspecified (principal)

== ENCOUNTER 2023-03-10 08:19 | Outpatient (RCR) | payer SELFPAY ==
[2023-02-11 00:04] VITALS: BP 120/69; PULSE 67
[2023-02-22 08:20] VITALS: BP 154/80; PULSE 67
[2023-02-24 10:28] VITALS: BP 120/76; PULSE 76
[2023-03-03 08:12] VITALS: BP 117/70; PULSE 64
[2023-03-08 08:31] VITALS: BP 130/71; PULSE 70
[2023-03-10 08:20] VITALS: BP 132/73; PULSE 73
[2023-03-17 08:23] VITALS: BP 124/72; PULSE 81
== END 2023-03-12 23:59 | disposition home or self-care (01) ==
LOC: CR 08:19
PROVIDERS: PCP Family Medicine; Referring Provider Internal Medicine Cardiovascular Disease; Visit Provider Internal Medicine Cardiovascular Disease

== ENCOUNTER 2023-03-10 09:29 | Outpatient (CLI) | payer MEDICARE, SELFPAY ==
[2023-03-10 09:35] LABS: Abs Immature Grans 0.02 10^3/uL (0.0-0.06); Absolute Basophil Count 0.08 10^3/uL (0.0-0.2); Absolute Eosinophil Count 0.38 10^3/uL (0.0-0.7); Absolute Monocyte Count 0.74 10^3/uL (0.1-0.8); Basophils % 1.1; Eosinophils % 5.1; HCT 39.4 % (40.0-50.0); HGB 12.4 g/dL (13.5-17.5); Immature Grans % 0.3; Lymphocytes % 12.1; MCH 24.8 pg (27.0-33.0); MCHC 31.5 % (32.0-36.0); MCV 79 fL (80-95); MPV 9.5 fL (8.0-11.0); Neutrophils % 71.4; Platelet Count 306 10^3/uL (130-400); RBC 5.01 10^6/uL (4.36-5.78); RDW 16.9 % (11.8-14.1); RDW-SD 48.3 fL; WBC 7.42 10^3/uL (4.4-10.8)
[2023-03-10 10:23] LABS: ALT 19 U/L (16-63); AST 21 U/L (15-37); Albumin 3.8 g/dL (3.4-5.0); Alkaline Phosphatase 112 U/L (46-116); BUN 29 mg/dL (7-18); Bilirubin, Total 0.5 mg/dL (0.2-1.0); CREATININE 2.2 mg/dL (0.70-1.30); Calcium 9.3 mg/dL (8.5-10.1); Chloride 101 mmol/L (98-107); Estimated GFR 31.05 (mL/min/1.73m2); Glucose 100 mg/dL (74-106); Sodium 137 mmol/L (136-145); Total Protein 8.4 g/dL (6.4-8.2)
[2023-03-14 09:09] LABS: Indication for Study CML
[2023-03-14 09:10] LABS: Specimen Type Blood
[2023-03-14 09:11] LABS: BCR-ABL1 p210 FusionTranscript See Comments
[2023-03-14 09:12] LABS: BCR-ABL1 Interpretation See Comments
[2023-03-14 09:16] LABS: Limitations and Disclaimers See Comments
== END 2023-03-10 09:30 | disposition home or self-care (01) ==
LOC: LBO 09:34
PROVIDERS: PCP Family Medicine; Visit Provider Internal Medicine Hematology & Oncology
DX: C92.10 Chronic myeloid leukemia, BCR/ABL-positive, not having achieved remission (principal)
CPT/HCPCS: 36415; 80053; 81206; 85025

== ENCOUNTER → 2023-03-21 13:51 | Outpatient (BNVA) | payer MEDICARE, SELFPAY | PROVIDERS: PCP Family Medicine; Visit Provider Internal Medicine Cardiovascular Disease | DX: I11.0 Hypertensive heart disease with heart failure (principal); R00.2 Palpitations; I25.10 Atherosclerotic heart disease of native coronary artery without angina pectoris; I50.9 Heart failure, unspecified | CPT/HCPCS: 99214 ==

== ENCOUNTER 2023-03-24 08:34 | Outpatient (RCR) | payer SELFPAY ==
[2023-03-13 00:03] VITALS: BP 132/73; PULSE 73
[2023-03-15 08:15] VITALS: BP 124/71; PULSE 64
[2023-03-22 08:23] VITALS: BP 119/72; PULSE 70
[2023-03-24 08:42] VITALS: BP 132/75; PULSE 66
== END 2023-04-12 23:59 | disposition home or self-care (01) ==
LOC: CR 08:34
PROVIDERS: PCP Family Medicine; Referring Provider Internal Medicine Cardiovascular Disease; Visit Provider Internal Medicine Cardiovascular Disease
DX: R69 Illness, unspecified (principal)

== ENCOUNTER → 2023-10-17 03:59 | Outpatient (CLI) | payer MEDICARE, SELFPAY ==
--- NOTE | 2023-10-17 08:30 | DI.US_ITS ---
APPROVED REPORT EXAM: Comprehensive 2D, Doppler, and color-flow Echocardiogram Conclusion Normal left ventricular wall thickness and chamber size. Ejection fraction is 50 to 55%. There is a kinesis of the anterior apical, anteroseptal and apical segments Normal right ventricular size and function Both atria are moderately enlarged Aortic valve is sclerotic and trileaflet without stenosis or regurgitation Normal mitral valve with trace regurgitation Normal tricuspid valve with mild regurgitation Wall motion Left Ventricle The left ventricle is normal size. The left ventricular systolic function is normal. The left ventric ular ejection fraction is within the normal range. Anteroapical wall motion abnormality LVEF is 50-55 %. Right Ventricle The right ventricle is normal size. The right ventricular systolic function is normal. Atria Left atrium is moderately dilated. Right atrium is moderately dilated. The interatrial septum is inta ct with no evidence for an atrial septal defect. Aortic Valve The Aortic valve is sclerotic. Aortic valve is trileaflet. There is no aortic valvular stenosis. No a ortic regurgitation is present. Mitral Valve The mitral valve is normal in structure. Trace mitral regurgitation. Tricuspid Valve The tricuspid valve is normal in structure. Mild tricuspid regurgitation.
== END ==
PROVIDERS: PCP Family Medicine; Visit Provider Internal Medicine Cardiovascular Disease
DX: I25.5 Ischemic cardiomyopathy (principal); I51.7 Cardiomegaly; I36.1 Nonrheumatic tricuspid (valve) insufficiency
CPT/HCPCS: 93306

== ENCOUNTER 2023-10-25 10:39 | Outpatient (CLI) | payer MEDICARE, SELFPAY ==
[2023-10-25 12:13] LABS: HCT 39.7 % (40.0-50.0); HGB 12.4 g/dL (13.5-17.5); MCH 25.1 pg (27.0-33.0); MCHC 31.2 % (32.0-36.0); MCV 80 fL (80-95); MPV 9.9 fL (8.0-11.0); Platelet Count 280 10^3/uL (130-400); RBC 4.94 10^6/uL (4.36-5.78); RDW-SD 60.5 fL; WBC 5.57 10^3/uL (4.4-10.8)
[2023-10-25 12:33] LABS: Iron 68 ug/dL (65-175)
[2023-10-25 12:40] LABS: RDW 21.3 % (11.8-14.1)
[2023-10-25 12:56] LABS: Vitamin D 25 Total 75.5 ng/mL (30-100)
[2023-10-25 12:59] LABS: ALT 18 U/L (16-63); AST 28 U/L (15-37); Albumin 3.9 g/dL (3.4-5.0); Alkaline Phosphatase 99 U/L (46-116); Anion Gap 11.1 mmol/L (3-11); BUN 33 mg/dL (7-18); Bilirubin, Total 0.4 mg/dL (0.2-1.0); CO2 26.9 mmol/L (21.0-32.0); CREATININE 2.5 mg/dL (0.70-1.30); Calculated LDL 59 mg/dL (<100); Chloride 106 mmol/L (98-107); Cholesterol 124 mg/dL (<200); Estimated GFR 26.47 (mL/min/1.73m2); Ferritin 26 ng/mL (26-388); Glucose 93 mg/dL (74-106); HDL Cholesterol 42 mg/dL (40-60); Potassium 3.9 mmol/L (3.5-5.1); Sodium 144 mmol/L (136-145); TSH (W/Ref FT4) 1.81 uIU/mL (0.36-3.74); Total Protein 7.8 g/dL (6.4-8.2); Triglyceride 118 mg/dL (<150)
[2023-10-25 13:01] LABS: Vitamin B12 > 2000 pg/mL (193-986)
== END 2023-10-25 10:40 | disposition home or self-care (01) ==
LOC: LOS 10:39
PROVIDERS: PCP Family Medicine; Referring Provider Family Medicine; Visit Provider Family Medicine
DX: D64.9 Anemia, unspecified (principal); I25.5 Ischemic cardiomyopathy; I25.10 Atherosclerotic heart disease of native coronary artery without angina pectoris; N25.9 Disorder resulting from impaired renal tubular function, unspecified; E53.8 Deficiency of other specified B group vitamins; I10 Essential (primary) hypertension; I27.20 Pulmonary hypertension, unspecified; E03.9 Hypothyroidism, unspecified; E55.9 Vitamin D deficiency, unspecified
CPT/HCPCS: 36415; 80053; 80061; 82306; 85027; 82607; 82728; 83540; 84443

== ENCOUNTER → 2023-10-31 04:07 | Outpatient (CLI) | payer MEDICARE, SELFPAY ==
--- NOTE | 2023-10-31 06:15 | DI.US_ITS ---
Exam(s) US ABDOMEN EXAM: US ABDOMEN CLINICAL HISTORY: wt loss, early satiety,r63.4,r68.81 TECHNIQUE: Ultrasound of complete upper abdomen performed using standard protocol. COMPARISON: US US ECHOCARDIOGRAM from 10/17/2023 FINDINGS: Is trace ascites around the dome of the liver LIVER: There are no hepatic lesions evident nor obvious dilatation of intrahepatic ducts. GALLBLADDER/BILIARY: Gallbladder surgically absent The common hepatic duct isnot dilated, measuring 4mm at the level of jonathan hepatis. PANCREAS: There is no evidence of pancreatic mass nor dilatation of the pancreatic duct. SPLEEN: In size normal. No splenic lesions. Small splenule measuring 10 x 10 mm noted KIDNEYS:Right kidney unremarkable. There is a small 1.6 x 1.5 cm benign cyst in left kidney. No carmen id renal masses. No calculi. No hydronephrosis. ABDOMINAL AORTA: Partially obscured by overlying midline gas. IVC: Normal diameter where visualized. IMPRESSION: 1. The gallbladder surgically absent. The biliary tree is not dilated. 2. There is trace free fluid around the superior aspect of the liver. 3. Simple benign 1.6 cm cyst in the left kidney which does not require further follow-up DATA REPOSITORY:
--- NOTE | 2023-10-31 06:15 | DI.CT_ITS ---
Exam(s) CT CHEST WO EXAM: CT CHEST WO CLINICAL HISTORY: sob, raspy, wt loss,r63.4,r06.02. TECHNIQUE: Multi planar reconstructions were performed. CONTRAST MATERIAL: None COMPARISON: CR XR CHEST 2V PA LATERAL from 12/21/2021 FINDINGS: CHEST: LUNGS: There is a moderate-large size right pleural effusion. This appears to have further increased in size when compared to chest x-ray of 12/21/2021. It appears non loculated. There is no pleural effusion on the opposite-left side. However, there is a prominent area of ground-glass infiltrate in the left lower lobe involving the posterior basal segment. There is also mild ground-glass infiltra te in the inferior lingular segment of the left lung base. MEDIASTINUM: There is no obvious hilar nor mediastinal adenopathy. Visualized thyroid unremarkable.No obvious axillary adenopathy CARDIAC: There is cardiomegaly. No pericardial effusion.Caliber of the thoracic aorta is within uppe r normal limits. VISUALIZED UPPER ABDOMEN:There are no adrenal masses. No splenomegaly. No ascites. Gallbladder miriam gically absent. OSSEOUS: No significant osseous lesions.No fractures evident.. IMPRESSION: 1. Left lower lobe infiltrate predominately involving the posterior basal segment and there is also i nfiltrate in the inferior lingular segment of the left lung. There is no pleural effusion on this le ft side. 2. Moderate-large unilateral pleural effusion on the opposite-right side. This was evident on prior chest x-ray of 12/21/2021 3. Close follow-up recommended. Providers office notified RADIATION DOSE DELIVERED: 457.41mGy.cm Total DLP DATA REPOSITORY: All CT scans at this facility are submitted to the National Radiology Data Registry (NRDR) Dose Index Registry (DIR) with the [employer] (ACR). RADIATION OPTIMIZATION: All CT scans at this facility use at least one of these dose optimization te chniques: automated exposure control; mA and/or kV adjustment per patient size (includes targeted exa ms where dose is matched to clinical indication); or iterative reconstruction.
== END ==
PROVIDERS: PCP Family Medicine; Visit Provider Family Medicine
DX: I25.5 Ischemic cardiomyopathy; C92.10 Chronic myeloid leukemia, BCR/ABL-positive, not having achieved remission
CPT/HCPCS: 71250; 76700

== ENCOUNTER → 2023-11-01 13:44 | Outpatient (BNVA) | payer MEDICARE, SELFPAY | PROVIDERS: PCP Family Medicine; Visit Provider Internal Medicine Cardiovascular Disease | DX: J90 Pleural effusion, not elsewhere classified (principal); I25.10 Atherosclerotic heart disease of native coronary artery without angina pectoris; I25.5 Ischemic cardiomyopathy | CPT/HCPCS: 99213 ==

== ENCOUNTER 2023-11-14 05:14 | Outpatient (CLI) | payer MEDICARE, SELFPAY ==
[2023-11-14] MEDS: Levalbuterol HFA 15 GM INH 4 PUFF IH (09:20)
[2023-11-14] MEDS: Inhaler, Assist Device 1 EACH MC (09:20)
--- NOTE | 2023-11-14 14:35 | W.PFT ---
Date of service: 11/14/23 Time of Service: 08:01 Pulmonary Function Test Result Indications: Dyspnea on exertion Interpretation Spirometry: There is likely mild airflow limitation with a significant bronchodilator response. There is also restrictive spirometry Lung Volumes: There is likely mild restriction Diffusion Capacity: There is a reduced diffusion Airway Pressure: Normal airways resistance Impression There is likely a mixed obstructive and restrictive process occurring with a significant bronchodilator response. Clinical Correlation therefore is recommended.
--- NOTE | 2023-11-18 08:47 | W.NOCTURNAL ---
Date of service: 11/14/23 Time of Service: 21:13 Nocturnal Oximetry Note: Overnight Oximetry Amount of time analyzed: 8 hours 52 minutes on room air Number of minutes under 88%: 16.6 MEG: 13.0 Appearance of oxygen saturation pattern:Some sharp decreases which be represent obstructive sleep apnea Recommendation: consider nocturnal O2 and repeat testing or sleep study Hamida Hurt MD Pulmonary & Critical Care Medicine
== END 2023-11-14 05:15 | disposition home or self-care (01) ==
LOC: RT 05:16
PROVIDERS: PCP Family Medicine; Visit Provider Family Medicine
DX: R06.00 Dyspnea, unspecified (principal)
CPT/HCPCS: 94060; 94726; 94729; 94762

== ENCOUNTER → 2023-11-21 04:22 | Outpatient (CLI) | payer MEDICARE, SELFPAY ==
--- NOTE | 2023-11-21 08:15 | DI.CT_ITS ---
Exam(s) CT CHEST WO EXAM: CT CHEST WO CLINICAL HISTORY: hemoptysis,r04.2. TECHNIQUE: Multi planar reconstructions were performed. CONTRAST MATERIAL: None COMPARISON: CT CT CHEST WO from 10/31/2023 FINDINGS: CHEST: LUNGS: There is again noted a large non loculated appearing right pleural effusion which appears praveen lar size to 10/31/2023. There is associated volume loss in the basal segments of the right lower lob e. No prominent infiltrates in the right lung. However, there is again noted prominent area of infi ltrate in the left lower lobe posterior basal segment which exhibits minimal if any significant sharp e in no improvement when compared to CT images of 10/31/2023. There is no pleural effusion on the le ft side. Mild increased markings also noted in the inferior lingular segment of the left lung. Ther e is again noted sparing of the left upper lobe above this level. There are no significant focal findings in the trachea and mainstem bronchi. No bronchiectasis. MEDIASTINUM: There is no obvious hilar nor mediastinal adenopathy. Visualized thyroid unremarkable.No obvious axillary adenopathy CARDIAC: There is cardiomegaly again noted. No pericardial effusion. Caliber thoracic aorta upper n ormal. VISUALIZED UPPER ABDOMEN:No adrenal masses. See separate dictation. OSSEOUS: No significant osseous lesions.No fractures.. IMPRESSION: 1. Findings remain quite similar to the chest CT scan of 10/31/2023. There is a persistent moderate- large unilateral right pleural effusion and there is persistent left lower lobe infiltrate predominat brittny involving the posterior basal segment of the left lower lobe. Also mild increased markings infer ior lingular segment of the left lung again noted. 2. Cardiomegaly again noted. No pericardial effusion. RADIATION DOSE DELIVERED: 497.31mGy.cm Total DLP DATA REPOSITORY: All CT scans at this facility are submitted to the National Radiology Data Registry (NRDR) Dose Index Registry (DIR) with the [employer] (ACR). RADIATION OPTIMIZATION: All CT scans at this facility use at least one of these dose optimization te chniques: automated exposure control; mA and/or kV adjustment per patient size (includes targeted exa ms where dose is matched to clinical indication); or iterative reconstruction.
--- NOTE | 2023-11-21 08:15 | DI.CT_ITS ---
Exam(s) CT ABDOMEN PELVIS W EXAM: CT ABDOMEN PELVIS W CLINICAL HISTORY: wt loss, ascites on US,early sateity,r63.4,r18.8,r68.81. TECHNIQUE: Imaging Protocol: Axial computed tomography images with coronal and sagittal reformatted images were created and reviewed CONTRAST MATERIAL: Intravenous: Omnipaque-350 100cc Oral: Yes. Oral contrast was also administered for bowel opacification. COMPARISON: CT CT CHEST WO from 10/31/2023 FINDINGS: VISUALIZED LUNG BASES: There is a prominent right pleural effusion noted. There is send collapse of basal segments of the right lower lobe. There is also again noted significant large area of ground-g lass infiltrate in the left lower lobe, predominately involving the posterior basal segment of the le ft lower lobe. Mild infiltrate also noted in the lingular segment the left lung. There is no pleura l fluid on the left side.. ABDOMEN: LIVER: There are no focal hepatic lesions evident. No dilated intrahepatic ducts. GALLBLADDER/BILIARY: Gallbladder surgically absent. CBD is not dilated. PANCREAS: No evidence of pancreatic mass nor dilatation of the pancreatic duct. SPLEEN: Spleen is not enlarged. No obvious intrasplenic lesions. Splenic and portal veins are paten t. ADRENALS: There are no significant adrenal masses. KIDNEYS:There is a benign cyst in the right kidney measuring 1.8 cm and a benign cyst in the left kid isaiah measuring 1.6 cm. No solid renal masses. No calculi. No hydronephrosis nor hydroureter. ABDOMINAL AORTA: Abdominal aorta is not enlarged. LYMPH NODES:There is no retroperitoneal nor paraaortic adenopathy. ABDOMINAL WALL: No evidence of significant anterior abdominal wall nor inguinal hernia. GI: There is no evidence of bowel obstruction, free air, nor abscess. PELVIS: GI: No evidence of appendicitis.There is diverticulosis of the left side of the colon. There is some very mild streaking around few the diverticuli in the left iliac fossa. There is also small amount of free fluid in the dependent aspect of the pelvis. LYMPH NODES: There is no intrapelvic nor inguinal adenopathy. REPRODUCTIVE: Prostate size normal. Seminal vesicles unremarkable. URINARY BLADDER: Under distended. OSSEOUS: No fractures and no significant osseous lesions. IMPRESSION: 1. There is diverticulosis of the descending-left colon. There is mild streaking around a few divert iculi in the sigmoid:, probably indicating mild diverticulitis. No free air. No abscess although th ere is a small amount of free fluid in the pelvis in this male patient. 2. Gallbladder is noted be surgically absent. The biliary tree is not dilated. 3. Large right pleural effusion. Large infiltrate in the left lower lobe. No pleural effusion on th e left side. RADIATION DOSE DELIVERED: 1,153.62mGy.cm Total DLP DATA REPOSITORY: All CT scans at this facility are submitted to the National Radiology Data Registry (NRDR) Dose Index Registry (DIR) with the [employer] (ACR). RADIATION OPTIMIZATION: All CT scans at this facility use at least one of these dose optimization te chniques: automated exposure control; mA and/or kV adjustment per patient size (includes targeted exa ms where dose is matched to clinical indication); or iterative reconstruction.
[2023-11-21 13:06] LABS: CREATININE 1.9 mg/dL (0.70-1.30); Estimated GFR 36.79 (mL/min/1.73m2)
[2023-11-21] MEDS: Barium Sulfate 2% W/V-Berry Smoothie 450 ML BTL PO ×2 (13:13→13:14)
[2023-11-21] MEDS: Omnipaque 350 MG/ML 100 ML BTL 75 ML IJ (14:44)
[2023-11-21] MEDS: Normal Saline - Diluent 50 ML VIAL IJ (14:45)
== END ==
PROVIDERS: PCP Family Medicine; Visit Provider Family Medicine
DX: R18.8 Other ascites (principal); R68.81 Early satiety; R63.4 Abnormal weight loss; R04.2 Hemoptysis
CPT/HCPCS: 71250; 74177; 82565; J3490

== ENCOUNTER → 2023-11-22 09:19 | Outpatient (BNVA) | payer MEDICARE, SELFPAY | PROVIDERS: PCP Family Medicine; Referring Provider Family Medicine; Visit Provider Student in an Organized Health Care Education/Training Program | DX: R04.2 Hemoptysis (principal); R06.02 Shortness of breath; I25.10 Atherosclerotic heart disease of native coronary artery without angina pectoris; R63.4 Abnormal weight loss; J44.9 Chronic obstructive pulmonary disease, unspecified; G47.34 Idiopathic sleep related nonobstructive alveolar hypoventilation; J90 Pleural effusion, not elsewhere classified | CPT/HCPCS: 76604; 94664; 99215 ==

== ENCOUNTER 2023-11-24 00:58 | Outpatient (CLI) | payer MEDICARE, SELFPAY ==
[2023-11-24 13:36] LABS: Abs Immature Grans 0.02 10^3/uL (0.0-0.06); Absolute Basophil Count 0.07 10^3/uL (0.0-0.2); Absolute Eosinophil Count 0.38 10^3/uL (0.0-0.7); Absolute Lymphocyte Count 1.23 10^3/uL (1.2-3.4); Absolute Monocyte Count 0.79 10^3/uL (0.1-0.8); Absolute Neutrophil Count 4.98 10^3/uL (1.2-6.7); Basophils % 0.9 %; Eosinophils % 5.1 %; HCT 36.5 % (40.0-50.0); HGB 11.8 g/dL (13.5-17.5); Immature Grans % 0.3 %; Lymphocytes % 16.5 %; MCH 25.7 pg (27.0-33.0); MCHC 32.3 % (32.0-36.0); MCV 80 fL (80-95); Monocytes % 10.6 %; Neutrophils % 66.6 %; Platelet Count 279 10^3/uL (130-400); RBC 4.59 10^6/uL (4.36-5.78); RDW 19.3 % (11.8-14.1); RDW-SD 55.8 fL; WBC 7.47 10^3/uL (4.4-10.8)
[2023-11-24 13:56] LABS: ALT 25 U/L (16-63); AST 27 U/L (15-37); Albumin 3.8 g/dL (3.4-5.0); Alkaline Phosphatase 113 U/L (46-116); Anion Gap 12.4 mmol/L (3-11); BUN 29 mg/dL (7-18); Bilirubin, Total 0.5 mg/dL (0.2-1.0); CO2 24.6 mmol/L (21.0-32.0); CREATININE 2.6 mg/dL (0.70-1.30); Calcium 8.6 mg/dL (8.5-10.1); Chloride 104 mmol/L (98-107); Estimated GFR 25.25 (mL/min/1.73m2); Glucose 107 mg/dL (74-106); Sodium 141 mmol/L (136-145); Total Protein 7.6 g/dL (6.4-8.2)
[2023-11-28 15:29] LABS: BCR/ABL1, p210 Result see interpretation; Specimen Type EDTA Whole Blood
== END 2023-11-24 00:59 | disposition home or self-care (01) ==
PROVIDERS: PCP Family Medicine; Visit Provider Internal Medicine Hematology & Oncology
DX: C92.10 Chronic myeloid leukemia, BCR/ABL-positive, not having achieved remission (principal)
CPT/HCPCS: 36415; 80053; 81206; 85025

== ENCOUNTER 2023-11-25 12:40 | Day surgery (SDC) | payer MEDICARE, SELFPAY ==
--- NOTE | 2023-11-24 20:14 | PDOC.DSDIS_ITS ---
Date of service: 11/25/23 Time of Service: 14:32 Discharge Plan Disposition Patient Disposition: Home Condition: Good Discharge Details Reason For Visit: Diagnostic thoracentesis Attending Provider: Kristofer Cuello Primary Care Provider: Sonam Samayoa Home Meds and New Rx's Prescriptions: Continued nitroglycerin 0.4 mg tablet, sublingual 0.4 mg Sublingual q 5 min Qty: 25 6RF nifedipine 30 mg tablet extended release 30 mg PO DAILY Qty: 90 3RF clopidogrel 75 mg tablet 75 mg PO DAILY 90 Days Qty: 90 4RF pantoprazole 40 mg tablet,delayed release (DR/EC) 40 mg PO DAILY Qty: 90 4RF rosuvastatin 20 mg tablet 20 mg PO DAILY Qty: 90 7RF fluticasone propion-salmeterol [Advair HFA] 115-21 mcg/actuation HFA aerosol inhaler 2 puff inhalation BID Qty: 12 4RF Bosulif 100 mg tablet 300 mg PO DAILY Qty: 90 5RF Rx Instructions: administer with food; swallow whole; do not crush/chew/dissolve/break/cut cholecalciferol (vitamin D3) 5,000 UNIT tablet 5,000 unit PO DAILY aspirin 81 MG tablet,delayed release (DR/EC) 81 mg PO DAILY carvedilol 6.25 mg tablet 6.25 mg PO BID Qty: 180 5RF Rx Instructions: must administer with a meal/food furosemide 40 mg tablet 40 mg PO DAILY Qty: 90 4RF Rx Instructions: Take Q48 hours and every day you gain 2 lbs. celecoxib 100 mg capsule 100 mg PO DAILY Qty: 90 0RF gabapentin 300 mg capsule 300 mg PO TID Qty: 270 5RF duloxetine 30 mg capsule,delayed release(DR/EC) 30 mg PO DAILY Qty: 90 4RF allopurinol 300 mg tablet 150 mg PO DAILY Qty: 90 12RF levothyroxine 50 mcg tablet 50 mcg PO DAILY Qty: 90 4RF etanercept 50 mg/mL (1 mL) pen injector 50 mg SC QWEEK Qty: 12 6RF ranolazine 500 mg tablet extended release 12 hr 500 mg PO BID Qty: 180 12RF Discharge Instructions Instructions: Thoracentesis Additional Instructions: Shiv, it was great meeting you in the hospital today, and I hope the thoracentesis procedure was relatively comfortable for you. As we talked about after the procedure, I do not see any signs of worrisome infection at this point. We were able to obtain fine samples that the lab will be able to use for analysis of the fluid. As I mentioned, will take a little bit of time to get all those results back, but I will certainly be in touch when I have that information. You have a Band-Aid in place over the site where the catheter drained the fluid. If the bandage becomes saturated, please remove it and apply a new 1. Laying on top of the site, and applying a cold compress to the area can help control bleeding and soreness that might occur in the next day or two. If the Band-Aid stays dry, it can be removed tomorrow. You should wash her back with warm soapy water and a regular shower. You do not need to keep a Band-Aid on after that, but if it is more comfortable against her clothing, it is fine to cover the site. I would expect that area to become a little bit bruised in the coming days, so do not be alarmed by that if you notice it. As we talked about beforehand, you do not need any specific restrictions in the days to come. I recommend the following breathing exercises to help inflate your lung into that space where the fluid has previously accumulated: ? Breathing control- This is gentle breathing for 1 minute. Breathe in and out through the nose if you can. Feel your belly rise as you breathe in and sink as you breathe out. The breath should be gentle. ? Thoracic Expansions (Bigger breaths) Breath in and out through your nose - take a slow, large breath in, hold for the count of 3 if you can and breathe out gently. The cycle of breathing should be controlled, try to keep the noise of the air passing in and out silent. Repeat up to 3 times only. Follow this with one minute of breathing control. ? Forced Expiratory Technique- This is know as a Pandya. Breathe in through your nose (as if smelling a tarun) then with your mouth open force the air out (as if trying to steam up a mirror). 2 slow, long huffs and then 2 fast short huffs. Follow this with breathing control. Try to repeat the breathing control, expansions, breathing control, pandya, breating control cycle 3 times per day. If you can remember to do it more frequently, that might be helpful. There is really no upper limit how many times the cycle can be repeated every day. But I do think most patients find the easiest to do right when they wake up, after lunch, and right when they go to bed. Once I have the results of all the fluid testing, I will be in touch. If you need anything in the meantime, or noticed any unusual difficulty breathing, pl ease let the office know right away, or go to the emergency department if it is after business hours. Activity:: Activity as Tolerated Remove Dressings/Wound Care:: 24 hours Shower/Bathe:: 24 hours Diet:: As Tolerated Discharge Orders Discharge Orders: Discharge Order (Routine); Ordered 11/24/23 Ordered By: Kristofer Cuello DS: Diagnosis Discharge Diagnosis (1) Pleural effusion, right: Status: Acute Asessment and Plan: Follow-up on thoracentesis labs
--- NOTE | 2023-11-24 20:18 | W.PROCNOTE ---
Date of service: 11/25/23 Time of Service: 14:43 Procedure Note Date of procedure: 11/25/23 Procedure: Right sided thoracentesis Surgeon/Proceduralist/Physician: Kristofer Cuello Procedure Diagnosis: Right pleural effusion Procedure Indications: Paco is a 73-year-old male with a past medical history that is most significant for CML, who has a symptomatic right-sided pleural effusion. He is here for diagnostic and therapeutic thoracentesis. Procedure Description: I began by explaining the nature of the procedure, and anticipated recovery as well as the risks and the benefits with Paco and his daughter in the day surgery unit. Next, we moved back to the procedure room. Paco was assisted to the seated position and supported appropriately. I performed a limited ultrasound of the right chest, confirming the presence of a large pleural effusion. I then prepped and draped the right back in the midclavicular line around the level of the ninth interspace. I raised a skin wheal with local anesthetic, and anesthetized down onto the rib. I made a small incision in the skin to accommodate the needle, then with real-time ultrasound guidance to access the pleural cavity directly. Catheter was left in place, the needle was removed. Specimens were obtained for lab testing. Next, the catheter was attached to a Pleur-evac. Unfortunately, this limited the flow quite a bit. Therefore, I transitioned over to hand pumping. With slow steady breathing, and occasional deep breaths, I was able to evacuate approximately 850 mL of straw-colored fluid. Catheter was removed under positive pressure expiration, and Band-Aid was applied. Patient was brought back to the day surgery unit, and chest x-ray was performed. There are some residual basilar pleural effusion, but no evidence of any pneumothorax.
--- NOTE | 2023-11-25 | DI.RAD_ITS ---
Exam(s) XR PORTABLE CHEST AP EXAM: XR PORTABLE CHEST AP CLINICAL HISTORY: Post right-sided thoracentesis r/o pneumothorax. TECHNIQUE: 2D digital imaging was performed. COMPARISON: CR XR CHEST 2V PA LATERAL from 12/21/[address] ABDOMEN PELVIS W from 11/21/2023 FINDINGS: Single AP portable view. Cardiomegaly. The mediastinum is not widened. Left lung is clear. Again noted is a moderate size right pleural effusion, as seen on recent CT scan of 11/21/2023. Appears approximately equal size. IMPRESSION: Persistent moderate size right pleural effusion. No left pleural effusion. There does not appear to be airspace pulmonary edema. DATA REPOSITORY: RADIATION DOSE DELIVERED:
[2023-11-25 12:55] VITALS: BP 143/70; PULSE 69; RESP 16; TEMP 36.6; O2SAT 96
--- NOTE | 2023-11-25 14:15 | PAPNONF_PTH ---
PATIENT: Shiv Dupree LOC: [facility] U#:[id number] AGE/SX: 73/M ROOM: RE11/25/[address]: Kristofer Cuello MD : [id number] BED: DIS: 11/25/2023 SPEC #: [id number] RECD: 11/25/23 17:23 STATUS: GREGORYDipesh REQ #: [id number] LYRIC: 11/25/23 14:[address]: Kristofer Cuello DEPT: [facility] Cytology RECD BY: Theresa Pinto ENTERED: 11/25/23 17:29 SP TYPE: ASHLEY KNUTSON DR: Sonam Samayoa MD, DC Tissues: 1 - BODY FLUID CYTO(NOT S/U/N/EM)[facility] 2 - FLOW CYTOMETRY NODE/TISSUE Procedures: BODY FLUID CYTO(NOT SPU/UR/NIP/ENDOM)[facility] FLOW CYTOMETRY LYMPHOMA PNL Comments: [id number] (FLOW CYTOMETRY - [id number]) (REFRIGERATED)
[2023-11-25 14:35] VITALS: BP 122/71; PULSE 55; RESP 20; TEMP 36.6; O2SAT 98
[2023-11-25 15:12] LABS: Source: Pleural; pH Body Fluid 8
[2023-11-25 15:19] LABS: Clarity Cloudy; Mononuclear Cells 91 %; Nucleated Cells 745 uL (0); Polynuclear Cells 9 %; Source Pleural
[2023-11-25 15:29] LABS: Anion Gap 9.3 mmol/L (3-11); BUN 30 mg/dL (7-18); CO2 27.7 mmol/L (21.0-32.0); CREATININE 2.3 mg/dL (0.70-1.30); Calcium 8.8 mg/dL (8.5-10.1); Chloride 103 mmol/L (98-107); Estimated GFR 29.25 (mL/min/1.73m2); Glucose 97 mg/dL (74-106); LDH 203 U/L (85-227); Potassium 4.1 mmol/L (3.5-5.1); Sodium 140 mmol/L (136-145); Total Protein 8.1 g/dL (6.4-8.2)
[2023-11-25 22:17] LABS: Albumin, Body FLuid 2.1 g/dL (See Note)
[2023-11-25 22:21] LABS: Glucose, Fluid 105 mg/dL (See Note)
[2023-11-27 12:55] LABS: Fluid Type Pleural; Lactate Dehydrogenase (LD), BF 93 U/L
[2023-11-27 14:35] LABS: Fluid Type Pleural; Fluid Type: Pleural; Protein,Total, BF 3.8 g/dL; Triglycerides, BF 15 mg/dL
== END 2023-11-25 15:13 | disposition home or self-care (01) ==
PROVIDERS: PCP Family Medicine; Visit Provider Surgery
PROC: (CPT 32554; principal; 2023-11-25 13:30)
DX: J90 Pleural effusion, not elsewhere classified (principal)
CPT/HCPCS: 32555; 80048; 82042; 89051; 71045; 81373; 83615; 83986; 84155; 84157; 84478; 87070; 87205; 88104; 88184; 88185

== ENCOUNTER 2023-11-30 20:15 | Outpatient (CLI) | payer MEDICARE, SELFPAY ==
[2023-11-30 15:57] LABS: Reticulocyte 0.8 % (0.5-2.4)
[2023-11-30 16:49] LABS: Iron 34 ug/dL (65-175); Total Iron Binding Capacity 440 ug/dL (250-450); Transferrin Sat 8 % (20-55)
[2023-11-30 17:06] LABS: Ferritin 21 ng/mL (26-388); Folate 10.7 ng/mL (8.6-20.0)
[2023-12-02 12:54] LABS: Albumin 57.7 % (55.8-66.1); Albumin g/dL 4.2 g/dL (3.6-5.2); Total Protein 7.3 g/dL (6.3-8.2)
[2023-12-02 18:26] LABS: Erythropoietin 20.8 mIU/mL (2.6 - 18.5)
[2023-12-03 11:46] LABS: Copper, Serum 140 mcg/dL (73-129)
== END 2023-11-30 20:16 | disposition home or self-care (01) ==
LOC: LBO 20:16
PROVIDERS: PCP Family Medicine; Visit Provider Internal Medicine Hematology & Oncology
DX: D64.9 Anemia, unspecified (principal); R74.9 Abnormal serum enzyme level, unspecified
CPT/HCPCS: 82525; 82668; 82728; 82746; 83540; 83550; 84165; 85045

== ENCOUNTER → 2023-12-14 01:39 | Outpatient (CLI) | payer MEDICARE, SELFPAY ==
--- NOTE | 2023-12-14 08:00 | DI.RAD_ITS ---
Exam(s) XR CHEST 2V PA LATERAL EXAM: XR CHEST 2V PA LATERAL CLINICAL HISTORY: SOB, recent drainage of pulm effusion, R06.02, J90. TECHNIQUE: 2D digital imaging was performed. COMPARISON: CT CT ABDOMEN PELVIS W from 11/21/2023 CR XR PORTABLE CHEST AP from 11/25/2023 FINDINGS: 2 views: Cardiomegaly again noted. Mediastinum is not widened. There is a moderate-large right pleural effusion which has further increased in size. No obvious inf iltrate. There is slightly increased markings in the left lower lobe which are most probably vascula r. No pleural effusion on the left side. No airspace pulmonary edema. IMPRESSION: Significant further increasein size of the unilateral RIGHT pleural effusion. No pleural effusion on the left side. Please note that chest CT scan of 11/21/2023 did reveal significant infiltrate in the LEFT lower lobe . This was [id number] and may not be easily visible on plain radiographs. Consider repeat CT scan for added sensitivity. DATA REPOSITORY: RADIATION DOSE DELIVERED:
== END ==
PROVIDERS: PCP Family Medicine; Visit Provider Family Medicine
DX: R06.02 Shortness of breath (principal); J90 Pleural effusion, not elsewhere classified
CPT/HCPCS: 71046

== ENCOUNTER → 2023-12-20 08:30 | Outpatient (BNVA) | payer MEDICARE, SELFPAY | PROVIDERS: PCP Family Medicine; Referring Provider Family Medicine; Visit Provider Surgery | DX: J90 Pleural effusion, not elsewhere classified (principal) | CPT/HCPCS: 99214 ==

== ENCOUNTER 2023-12-21 08:28 | Day surgery (SDC) | payer MEDICARE, SELFPAY ==
--- NOTE | 2023-12-20 19:44 | PDOC.DSDIS_ITS ---
Date of service: 12/21/23 Time of Service: 11:19 Discharge Plan Disposition Patient Disposition: Home Condition: Good Discharge Details Reason For Visit: Thoracentesis Attending Provider: Kristofer Cuello Primary Care Provider: Sonam Samayoa Home Meds and New Rx's Prescriptions: Continued nitroglycerin 0.4 mg tablet, sublingual 0.4 mg Sublingual q 5 min Qty: 25 6RF nifedipine 30 mg tablet extended release 30 mg PO DAILY Qty: 90 3RF clopidogrel 75 mg tablet 75 mg PO DAILY 90 Days Qty: 90 4RF pantoprazole 40 mg tablet,delayed release (DR/EC) 40 mg PO DAILY Qty: 90 4RF rosuvastatin 20 mg tablet 20 mg PO DAILY Qty: 90 7RF fluticasone propion-salmeterol [Advair HFA] 115-21 mcg/actuation HFA aerosol inhaler 2 puff inhalation BID Qty: 12 4RF Bosulif 100 mg tablet 300 mg PO DAILY Qty: 90 5RF Rx Instructions: administer with food; swallow whole; do not crush/chew/dissolve/break/cut cholecalciferol (vitamin D3) 5,000 UNIT tablet 5,000 unit PO DAILY aspirin 81 MG tablet,delayed release (DR/EC) 81 mg PO DAILY carvedilol 6.25 mg tablet 6.25 mg PO BID Qty: 180 5RF Rx Instructions: must administer with a meal/food furosemide 40 mg tablet 40 mg PO DAILY Qty: 90 4RF Rx Instructions: Take Q48 hours and every day you gain 2 lbs. celecoxib 100 mg capsule 100 mg PO DAILY Qty: 90 0RF gabapentin 300 mg capsule 300 mg PO TID Qty: 270 5RF duloxetine 30 mg capsule,delayed release(DR/EC) 30 mg PO DAILY Qty: 90 4RF allopurinol 300 mg tablet 150 mg PO DAILY Qty: 90 12RF levothyroxine 50 mcg tablet 50 mcg PO DAILY Qty: 90 4RF etanercept 50 mg/mL (1 mL) pen injector 50 mg SC QWEEK Qty: 12 6RF ranolazine 500 mg tablet extended release 12 hr 500 mg PO BID Qty: 180 12RF Discharge Instructions Instructions: Thoracentesis (DC) Additional Instructions: Freddie really did great today, and I am sorry if the needle was a little more painful. However, we certainly got much better drainage, and like I mentioned after the procedure, your lung is expanded beautifully at this time. Will see how this helps you feel over the next few weeks, and I will check up on the notes from your meeting with the inflated ball molder down at [facility]. As I told you, if you develop any shortness of breath, or difficulty before the next time we talk, please do not hesitate to call. Once we have all the information from the nephrology consult, we will sit down to make another plan together about what to do next. Activity:: Activity as Tolerated Remove Dressings/Wound Care:: 24 hours Shower/Bathe:: 24 hours Diet:: As Tolerated Discharge Orders Discharge Orders: Discharge Order (Routine); Ordered 12/20/23 Ordered By: Kristofer Cuello DS: Diagnosis Discharge Diagnosis (1) Pleural effusion, right: Status: Acute
--- NOTE | 2023-12-20 19:46 | OPPNE_ITS ---
Date of service: 12/21/23 Time of Service: 11:19 Procedure Note Date of procedure: 12/21/23 Procedure: Right thoracentesis Surgeon/Proceduralist/Physician: Kristofer Cuello Procedure Diagnosis: Right sided pleural effusion Procedure Indications: Shiv is 73 years old, he has a symptomatic right-sided pleural effusion with increasing exertional dyspnea. Procedure Description: Jania Montoya met the day surgery unit, discussed and reviewed the plan for right- sided thoracentesis. Next, we brought him back into the procedure room. He was assisted to the seated position and supported appropriately. Next, I performed a limited ultrasound of the right chest. It appeared that the largest pocket of fluid was slightly lateral in the chest wall. Therefore, I prepped and draped an area of the right back just posterior to the posterior axillary line and below the tip of the scapula. Next, using real-time ultrasound guidance, and an esthetized the skin, down onto the rib. I made a small skin incision, and then advanced a thoracentesis needle into the pleural cavity aspirated straw-colored fluid. The catheter was affixed to suction tubing, but flow was limited. I tried to manipulate the catheter, but was not able to maintain adequate evacuation of the pleural fluid. Therefore, I removed the catheter, and attempted another aspiration in the same trajectory. Similarly, there was immediate return of straw-colored fluid. This time, when the catheter was affixed to the suction tubing, flow was excellent. Maday had a little bit of coughing during the procedure, that we were able to control by slowing the rate of pleural aspiration. Otherwise he did fantastic. In total, I drained 2600 mL of pleural effusion. Once the flow stopped, the catheter was removed under positive pressure expiration, and a Band-Aid was applied over the access site. Paco was assisted back to a reclined position, and transferred back to the day surgery unit for recovery.
[2023-12-21 09:01] VITALS: BP 112/72; PULSE 56; RESP 16; TEMP 36.4; O2SAT 95
--- NOTE | 2023-12-21 11:34 | DI.RAD_ITS ---
Exam(s) XR PORTABLE CHEST AP EXAM: XR PORTABLE CHEST AP CLINICAL HISTORY: s/p right thoracentesis TECHNIQUE: 2D digital imaging was performed. COMPARISON: No exams were available for comparison FINDINGS: Patient is status post right thoracentesis. LUNGS: Clear. No pneumothorax. Significant interval decrease size right pleural effusion, now small. HEART: Markedly enlarged, unchanged. AORTA: Normal diameter. BONES: Unremarkable for age. Soft tissues: Unremarkable. IMPRESSION: Small amount of residual pleural fluid status post thoracentesis. No pneumothorax. DATA REPOSITORY: RADIATION DOSE DELIVERED:
[2023-12-21 12:06] VITALS: BP 101/62; PULSE 49; TEMP 36.2; O2SAT 98
== END 2023-12-21 12:03 | disposition home or self-care (01) ==
LOC: SUR 08:28
PROVIDERS: PCP Family Medicine; Visit Provider Surgery
PROC: (CPT 32554; principal; 2023-12-21 10:45)
DX: J90 Pleural effusion, not elsewhere classified (principal)
CPT/HCPCS: 32555; 71045

== ENCOUNTER 2024-01-02 04:39 | Outpatient (RCR) | payer MEDICARE, SELFPAY ==
[2023-12-12] MEDS: SODIUM FER. GLUC./SUC. 125 MG in Normal Saline 100 ML 110 MG IVPB (08:07)
[2023-12-12] MEDS: Normal Saline Flush 10 ML SYR IVP (08:07)
[2023-12-19] MEDS: SODIUM FER. GLUC./SUC. 125 MG in Normal Saline 100 ML 110 MG IVPB (08:24)
[2023-12-19] MEDS: Normal Saline Flush 10 ML SYR IVP (08:24)
[2023-12-26] MEDS: SODIUM FER. GLUC./SUC. 125 MG in Normal Saline 100 ML 110 MG IVPB (08:22)
[2023-12-26] MEDS: Normal Saline Flush 10 ML SYR IVP (08:23)
[2024-01-02] MEDS: SODIUM FER. GLUC./SUC. 125 MG in Normal Saline 100 ML 110 MG IVPB (08:13)
[2024-01-02] MEDS: Normal Saline Flush 10 ML SYR IVP (08:13)
== END 2024-01-11 23:59 | disposition home or self-care (01) ==
LOC: INF 04:39
PROVIDERS: PCP Family Medicine; Visit Provider Family Medicine
DX: D50.9 Iron deficiency anemia, unspecified (principal); R06.02 Shortness of breath
CPT/HCPCS: 96365; J2916

== ENCOUNTER 2024-01-05 21:57 | Outpatient (REF) | payer MEDICARE, SELFPAY ==
[2024-01-05 22:25] LABS: HGB 13.7 g/dL (13.5-17.5); MCH 26.3 pg (27.0-33.0); MCHC 31.1 % (32.0-36.0); MCV 85 fL (80-95); MPV 10.8 fL (8.0-11.0); Platelet Count 308 10^3/uL (130-400); RDW 20.3 % (11.8-14.1); RDW-SD 61.8 fL; WBC 5.51 10^3/uL (4.4-10.8)
[2024-01-05 22:37] LABS: Iron 52 ug/dL (65-175)
[2024-01-05 23:04] LABS: ALT 30 U/L (16-63); AST 29 U/L (15-37); Albumin 3.8 g/dL (3.4-5.0); Alkaline Phosphatase 116 U/L (46-116); Anion Gap 11.2 mmol/L (3-11); BUN 27 mg/dL (7-18); Bilirubin, Total 0.48 mg/dL (0.2-1.0); CO2 25.8 mmol/L (21.0-32.0); CREATININE 2.1 mg/dL (0.70-1.30); Calcium 8.7 mg/dL (8.5-10.1); Chloride 105 mmol/L (98-107); Estimated GFR 32.62 (mL/min/1.73m2); Ferritin 154 ng/mL (26-388); Glucose 115 mg/dL (74-106); Potassium 4.2 mmol/L (3.5-5.1); Sodium 142 mmol/L (136-145); Total Protein 7.2 g/dL (6.4-8.2); Vitamin B12 771 pg/mL (193-986)
== END 2024-01-05 21:58 | disposition home or self-care (01) ==
LOC: LBN 21:57
PROVIDERS: PCP Family Medicine; Visit Provider Family Medicine
DX: E53.8 Deficiency of other specified B group vitamins (principal); D50.9 Iron deficiency anemia, unspecified; I10 Essential (primary) hypertension
CPT/HCPCS: 80053; 85027; 82607; 82728; 83540

== ENCOUNTER 2024-01-08 13:44 | Inpatient (IN) | payer MEDICARE, SELFPAY ==
[2024-01-08] VITALS (87 sets, daily range): BP systolic 109–225; BP diastolic 74–131; PULSE 48–102; RESP 12–48; TEMP 36.8–37.2; O2SAT 92–99
--- NOTE | 2024-01-08 14:00 | RT.EKG_ITS ---
APPROVED REPORT Exam: Resting ECG Reason for Exam: sob Patient Location: E HR:79 bpm ECG Measurements Heart Rate 79 AXIS AL [id number] P [id number] QRSd 119 QRS -27 QT 371 T 127 QTc 427 Conclusion Atrial fibrillation 79 +PVC no stemi
--- NOTE | 2024-01-08 14:00 | DI.RAD_ITS ---
Exam(s) XR CHEST 2V PA LATERAL EXAM: XR CHEST 2V PA LATERAL CLINICAL HISTORY: sob TECHNIQUE: 2D digital imaging was performed of the chest. Two images were obtained. PA and lateral views were obtained. COMPARISON: CR XR PORTABLE CHEST AP from 12/21/2023 FINDINGS: MEDIASTINUM: Normal. HEART: Normal. PULMONARY VASCULATURE: Normal. LUNGS: Clear. PLEURAL SPACE: There is now a moderate sized right pleural effusion occupying half of the left hemith orax. No right pleural effusion. No pneumothorax. BONE:Within normal limits for the patient's age. OTHER FINDINGS:Normal. IMPRESSION: Moderate size right pleural effusion. DATA REPOSITORY: RADIATION DOSE DELIVERED:
--- NOTE | 2024-01-08 14:07 | ED.GENADUL_ITS ---
Discharge Plan Disposition Patient Disposition: Admit to [facility] Condition: Stable Discharge Details Clinical Impression: Hypertensive emergency, Pleural effusion Primary Care Provider: Sonam Samayoa ED Provider: Gris Burns Home Meds and New Rx's Prescriptions: No Action nitroglycerin 0.4 mg tablet, sublingual 0.4 mg Sublingual q 5 min Qty: 25 6RF clopidogrel 75 mg tablet 75 mg PO DAILY 90 Days Qty: 90 4RF pantoprazole 40 mg tablet,delayed release (DR/EC) 40 mg PO DAILY Qty: 90 4RF rosuvastatin 20 mg tablet 20 mg PO DAILY Qty: 90 7RF Bosulif 100 mg tablet 300 mg PO DAILY Qty: 90 5RF Rx Instructions: administer with food; swallow whole; do not crush/chew/dissolve/break/cut carvedilol 6.25 mg tablet 6.25 mg PO BID Qty: 180 5RF Rx Instructions: must administer with a meal/food cholecalciferol (vitamin D3) 5,000 UNIT tablet 5,000 unit PO DAILY aspirin 81 MG tablet,delayed release (DR/EC) 81 mg PO DAILY duloxetine 30 mg capsule,delayed release(DR/EC) 30 mg PO DAILY Qty: 90 4RF levothyroxine 50 mcg tablet 50 mcg PO DAILY Qty: 90 4RF etanercept 50 mg/mL (1 mL) pen injector 50 mg SC QWEEK Qty: 12 6RF ranolazine 500 mg tablet extended release 12 hr 500 mg PO BID Qty: 180 12RF nifedipine 30 mg tablet extended release 30 mg PO DAILY Qty: 90 3RF HPI General Date/Time Provider Initiated Documentation: 01/08/24 14:04 . Limitations to Documentation: no limitations . Information obtained by: patient and family . HPI Narrative: 73-year-old gentleman with past medical history of COPD, CKD, CAD, CHF, recurrent pleural effusion presents for the evaluation of not feeling well. He reports that 2 days ago he went fishing for the whole day. He states that he wa s outdoors did not drink much. He states that he did have a egg salad sandwich. He states that it has been on ice, and not out of the sun all day. He states that that evening he felt very short of breath and had some difficulty with sleeping. He states that he has recurrent pleural effusions that he gets drained. He states that he is due for drainage in 2 days. He states that he has had minimal oral intake, only taking in 3 fruit popsicles over the last couple of days. Denies any vomiting. Reports some right upper quadrant abdominal pain. Reports that this is associated with some diarrhea on Tuesday and Tuesday. Reports that his last bowel movement though was normal. Denies any fever. Denies any sick contacts. States that overall he just feels really terrible. Related Data Home Medications ?Medication ?Instructions ?Recorded ?Confirmed cholecalciferol (vitamin D3) 125 5,000 unit PO DAILY 02/03/15 01/08/24 mcg (5,000 unit) tablet aspirin 81 mg tablet,delayed 81 mg PO DAILY 07/19/16 01/08/24 release bosutinib 100 mg tablet (Bosulif) 300 mg (3 x 100 mg) PO DAILY #90 04/27/22 01/08/24 tabs nitroglycerin 0.4 mg sublingual 0.4 mg sublingual q 5 min #25 12/30/22 01/08/24 tablet tab-caps clopidogrel 75 mg tablet 75 mg PO DAILY 90 days #90 tab-caps 03/17/23 01/08/24 pantoprazole 40 mg tablet,delayed 40 mg PO DAILY #90 tab-caps 03/17/23 01/08/24 release rosuvastatin 20 mg tablet 20 mg PO DAILY #90 tabs 03/17/23 01/08/24 duloxetine 30 mg capsule,delayed 30 mg PO DAILY #90 caps 04/21/23 01/08/24 release levothyroxine 50 mcg tablet 50 mcg PO DAILY #90 tabs 05/18/23 01/08/24 etanercept 50 mg/mL (1 mL) 50 mg subcut QWEEK #12 mL 07/11/23 01/08/24 subcutaneous pen injector ranolazine 500 mg tablet,extended 500 mg PO BID #180 tab-caps 08/29/23 01/08/24 release,12 hr nifedipine 30 mg tablet,extended 30 mg PO DAILY #90 tabs 01/02/24 01/08/24 release carvedilol 6.25 mg tablet 6.25 mg PO BID #180 tabs 01/05/24 01/08/24 Previous Rx's ?Medication ?Instructions ?Recorded bosutinib 100 mg tablet (Bosulif) 300 mg (3 x 100 mg) PO DAILY #90 04/27/22 tabs nitroglycerin 0.4 mg sublingual 0.4 mg sublingual q 5 min #25 12/30/22 tablet tab-caps clopidogrel 75 mg tablet 75 mg PO DAILY 90 days #90 tab-caps 03/17/23 pantoprazole 40 mg tablet,delayed 40 mg PO DAILY #90 tab-caps 03/17/23 release rosuvastatin 20 mg tablet 20 mg PO DAILY #90 tabs 03/17/23 duloxetine 30 mg capsule,delayed 30 mg PO DAILY #90 caps 04/21/23 release levothyroxine 50 mcg tablet 50 mcg PO DAILY #90 tabs 05/18/23 etanercept 50 mg/mL (1 mL) 50 mg subcut QWEEK #12 mL 07/11/23 subcutaneous pen injector ranolazine 500 mg tablet,extended 500 mg PO BID #180 tab-caps 08/29/23 release,12 hr nifedipine 30 mg tablet,extended 30 mg PO DAILY #90 tabs 01/02/24 release carvedilol 6.25 mg tablet 6.25 mg PO BID #180 tabs 01/05/24 Allergies Allergy/AdvReac Type Severity Reaction Status Date / Time chlorthalidone Allergy Severe facial Verified 01/08/24 14:18 swelling dexamethasone Allergy Intermediate severe Verified 01/08/24 14:18 facial swelling lisinopril Allergy Intermediate Facial Verified 01/08/24 14:18 swelling losartan AdvReac Intermediate MUSCLE Verified 01/08/24 14:18 WEAKNESS amlodipine AdvReac Mild FUNNY Verified 01/08/24 14:18 FEELING General Stated Complaint: GenMedical DAT: 3 Exam Narrative Exam Narrative: Review of Systems: All systems reviewed & are unremarkable except as noted in HPI and below Well-developed, no acute distress NCAT PERRL, normal conjunctiva RRR Unlabored respiratory effort, no hypoxia, diminished breath sounds at the right base Nondistended abdomen soft, mild right upper quadrant tenderness, no guarding or rebound Extremities w/o deformity, no cyanosis, no edema No rashes or lesions. Significant sun exposure noted with suntan lines on ankles and arms no focal neurologic deficits Appropriate mood and affect Course Vital Signs Vital signs: Vital Signs Temperature 37.1 C 01/08/24 13:46 Pulse 90 01/08/24 13:46 Respiratory Rate 16 01/08/24 13:46 Blood Pressure 198/108 H 01/08/24 13:46 Pulse Oximetry 97 01/08/24 13:46 Temperature 37.1 C 01/08/24 13:46 Temperature Source Skin 01/08/24 13:46 Pulse 90 01/08/24 13:46 Respiratory Rate 16 01/08/24 13:46 Blood Pressure 198/108 H 01/08/24 13:46 Blood Pressure Position Sitting 01/08/24 13:46 Pulse Oximetry 97 01/08/24 13:46 Oxygen Delivery Method Room Air 01/08/24 13:46 Oxygen Flow Rate 0 01/08/24 13:46 Pain Level 8 01/08/24 13:46 Medical Decision Making Emergent evaluation of the patient not feeling well. He has multiple medical comorbidities. On examination he is noted to be in A-fib and hypertensive. I am concerned for recurrence of his right pleural effusion given the decreased breath sounds on the right side. Otherwise he does have not have any signs of volume overload and is not complaining of chest pain. Plan for imaging, lab work and blood pressure control. 1530 Lab work reviewed. The patient has no leukocytosis. His creatinine is only 1.9 which is an improvement from his baseline CKD. He does not have any other electrolyte derangement. His CPK is normal and I do not suspect rhabdomyolysis. His BNP is noted to be significantly elevated over 18,000 which is a significant change for this patient. His first troponin was noted to be elevated at 70. Patient does not have chronic troponin. He denies any chest pain. On reevaluation, he does report that he feels slightly better after some IV fluids. I will repeat troponin. He was given a full dose aspirin. At this time the patient states that he has not been able to get this medicine for the last 3 days which may be contributing to his hypotension overall decompensation. 1710 Repeat troponin has trended up slightly but not significantly. Patient continues to not have any chest pain. I am more suspicious that this troponin leak may be secondary to elevated blood pressure, and will attempt better pressure control. I have reached out to general surgery. They state if the patient is admitted to this facility, they should be able to do do the thoracentesis that he had scheduled as an outpatient. I have also reached out to [facility] cardiology for consultation and treatment recommendations. 1800 Discussed with cardiology at [facility] and they concur with assessment of hypertensive emergency and recommend blood pressure control. They do not feel that this is ACS causing his slightly elevated troponin. Will give additional blood pressure medications though the patient has not responded very much and may benefit from Cardene infusion. Goal MAP reduction of 25% would put MAP goals at 130 . will discuss with hospitalist for admission. Medical Records Medical records reviewed: Yes I reviewed the patient's medical records. Lab Data Lab results reviewed: Yes I reviewed the patient's lab results. Quality:[facility] Health Related Social Needs: No Data to Display Critical Care Time Critical Care Time Critical Care Time: Yes Total Critical Care Time: 36 Attestation: CRITICAL CARE Upon my evaluation, this patient had a high probability of imminent or life- threatening deterioration due to hypertensive emergency which required my direct attention, intervention, and personal management. I have personally provided 36 minutes of critical care time exclusive of time spent on separately billable procedures. Time includes review of laboratory data, radiology results, discussion with consultants, and monitoring for potential decompensation. Interventions were performed as documented above [facility] All Active Problems (Updated 01/08/24 @ 18:31 by David Chinchilla MD) Elevated troponin (Acute) Pleural effusion (Acute) Hypertensive emergency (Acute) Dysphagia (Acute) Ground glass opacity present on imaging of lung (Acute) Shortness of breath (Acute) Pleural effusion, right (Acute) Serum creatinine raised (Acute) Nocturnal hypoxia (Acute) COPD (chronic obstructive pulmonary disease) (Chronic) Hemoptysis (Acute) Ascites (Acute) Iron deficiency anemia (Acute) Early satiety (Acute) Weight loss (Acute) 20 lbs in 2 years B12 deficiency (Acute) Pulmonary hypertension (Acute) Cervical radicular pain (Acute) Shoulder pain (Acute) TIA (transient ischemic attack) (Acute) Pleural effusion (Acute) Palpitations (Acute) Coronary artery disease (Chronic) Sensorineural hearing loss of both ears (Acute) Cerumen impaction (Acute) CHF (congestive heart failure) (Chronic) Gastric ulcer (Acute 05/12/80) Pain in thumb joint with movement (Acute 01/04/13) Hypothyroid (Chronic) Vitamin D deficiency disease (Chronic) 06/22: D-26; D2-4.4; D3-22; [facility] [place] Tricuspid regurgitation (Chronic 03/14/14) moderate Stable angina (Chronic 07/15/16) [facility] [place] Psoriatic arthritis (Chronic 02/03/15) Psoriasis (Chronic) a. arthralgias b. 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 Prostatism (Chronic) Low back pain with right-sided sciatica (Chronic 05/12/03) L3-4 disc herniation/DDD; B/L foraminal l4-5, L5-S1; Lumbar radiculopathy 2002 Surgery 02/24 Impaired renal function disorder (Chronic 11/13/13) cr2.5 Hyperlipidemia (Chronic) 06/22: C-265; H-33; L-166; T-331; [facility] [place] Hiatal hernia (Chronic 05/12/05) per EGD 07/19 Gout (Chronic 12/17/13) renal impairment, but not in range at 200mg daily - increased to 300mg daily Essential hypertension (Chronic 04/04/13) Diverticulosis of colon without diverticulitis (Chronic) 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) Cardiomyopathy, ischemic (Chronic 07/15/16) [facility] [place] EF 35% BY 07/14/16 STRESS MPI Anxiety (Chronic) Actinic keratosis (Chronic 02/02/16) Pronation deformity of foot (Chronic) Personal history of colonic polyps (Chronic) Medical History S/P abdominal paracentesis (~11/2023) Calculus of gallbladder with chronic cholecystitis without obstruction (01/06/17) Hypokalemia (01/04/13) Kidney stone Smoker Superficial injury of forearm without infection (05/12/94) Urinary tract infectious disease (05/12/94) Kidney stone Smoker chews tobacco Gastric ulcer 05/12/80 Urinary tract infectious disease 05/12/94 Superficial injury of right forearm 05/12/94 nail gun injury Pain in thumb joint with movement 01/04/13 Hypokalemia 01/04/13 Calculus of gallbladder with chronic cholecystitis without obstruction 01/06/17 Abnormal thyroid blood test (08/10/16) Hypokalemia HTN (hypertension) Chronic myeloid leukemia Impaired renal function Ischemic cardiomyopathy ST elevation myocardial infarction (STEMI) involving left anterior descending (LAD) coronary artery in recovery phase Tricuspid regurgitation ASCVD (arteriosclerotic cardiovascular disease) Arthritis with psoriasis Gout Diverticulosis Surgical History History of thoracentesis (~12/2023) History of spinal surgery Status post vasectomy History of back surgery exc. of herniated intervertebral disc Other specified postprocedural states h/o back surgery exc. of herniated intervertebral disc S/P vasectomy Vasectomy PTC EGD - MAC Colonoscopy - MAC (06/18/16) Cholecystectomy (02/02/17) BACK SURGERY EXC HERNIA INTERVERTEBRAL DISC Family History Mother , age 39 Ulcerative colitis Father , age 56 Stroke Sister No problems noted. Social History Smoking/Tobacco Use Status: Former Tobacco Use tobacco type: cigarettes Quit Date: 06/13/72 Tobacco: How many years used: 3 Second Hand Exposure: Yes Smoking risk assessment performed?: Yes Alcohol Intake: current Alcohol Intake frequency: a few times a month Alcohol type: beer and hard liquor Substance use type: does not use Caregiver/Support person: No Household members: spouse Housing: house Number of Children: 2 Communication Needs: Hard of Hearing Do you need help understanding health information?: Never Pets and animals: Yes Pets and animals: cat(s) and dog(s) Sexually active: No Do you think of yourself as: straight/heterosexual Current gender identity: male What is your relationship status?: How often do you talk on the phone with friends or family?: once per week How often do you get together with friends or relatives?: once per week How often do you attend religious or restorationist services?: decline to answer Do you belong to any clubs or organized social groups?: no Panel score (0-1 are the most socially isolated patients): 1 What type of physical activity do you participate in: other Details: Gardening,mwing lawn Golfing Duration: 15-30 minutes/day Frequency: 1-2 times per week Charline/Yazdanism: No preference Special charline needs: No Seatbelt use: always Drive intox or ride w/intox commercial trailer truck driver: No Do you feel safe at home: Yes Do you feel safe in your relationship?: Yes
[2024-01-08 14:42] LABS: Abs Immature Grans 0.02 10^3/uL (0.0-0.06); Absolute Basophil Count 0.05 10^3/uL (0.0-0.2); Absolute Lymphocyte Count 0.93 10^3/uL (1.2-3.4); Absolute Monocyte Count 0.76 10^3/uL (0.1-0.8); Absolute Neutrophil Count 5.05 10^3/uL (1.2-6.7); Basophils % 0.7 %; Eosinophils % 1.4 %; HCT 45.3 % (40.0-50.0); HGB 14.4 g/dL (13.5-17.5); Immature Grans % 0.3 %; Lymphocytes % 13.5 %; MCH 26.6 pg (27.0-33.0); MCHC 31.8 % (32.0-36.0); MCV 84 fL (80-95); MPV 9.9 fL (8.0-11.0); Neutrophils % 73.1 %; Platelet Count 301 10^3/uL (130-400); RBC 5.42 10^6/uL (4.36-5.78); RDW 20.2 % (11.8-14.1); RDW-SD 59.7 fL; WBC 6.91 10^3/uL (4.4-10.8)
[2024-01-08] MEDS: Normal Saline 250 ML IV (14:49)
[2024-01-08 14:51] LABS: Diff Comment RBC Morph Reviewed
[2024-01-08 14:52] LABS: Anisocytosis 1+
[2024-01-08 14:58] LABS: INR 1.1 (0.9-1.1); PTT Activated 28.8 sec (23.6-32.8)
[2024-01-08 15:03] LABS: ALT 30 U/L (16-63); AST 29 U/L (15-37); Albumin 3.8 g/dL (3.4-5.0); Alkaline Phosphatase 104 U/L (46-116); Anion Gap 10.4 mmol/L (3-11); BUN 18 mg/dL (7-18); CO2 24.6 mmol/L (21.0-32.0); CREATININE 1.9 mg/dL (0.70-1.30); Chloride 104 mmol/L (98-107); Creatine Kinase 204 U/L (39-308); Estimated GFR 36.79 (mL/min/1.73m2); Glucose 107 mg/dL (74-106); Lipase 24 U/L (16-77); Magnesium 1.9 mg/dL (1.8-2.4); NT-proBNP 18095 pg/mL (<300); Sodium 139 mmol/L (136-145); Total Protein 7.9 g/dL (6.4-8.2)
--- NOTE | 2024-01-08 15:04 | DI.VRAD_ITS ---
PROCEDURE INFORMATION: Exam: XR Chest Exam date and time: 01/08/2024 2:40 PM Age: 73 years old Clinical indication: Other: SOB TECHNIQUE: Imaging protocol: Radiologic exam of the chest. Views: 2 views. COMPARISON: CR XR PORTABLE CHEST AP 12/21/2023 11:30 AM FINDINGS: Lungs: Unremarkable. No consolidation. Pleural spaces: Moderate right pleural effusion. Heart/Mediastinum: Unremarkable. No cardiomegaly. Bones/joints: Unremarkable. IMPRESSION: Moderate right pleural effusion. Dictated and Authenticated by: Des Mendiola MD. [facility] Grant Riggs MD
[2024-01-08] MEDS: Metoprolol 5 MG/5 ML VIAL IVP ×2 (15:08→17:37)
[2024-01-08 15:14] LABS: Troponin I 72 ng/L (< or =60)
--- NOTE | 2024-01-08 15:15 | RT.EKG_ITS ---
APPROVED REPORT Exam: Resting ECG Reason for Exam: sob Patient Location: E HR:68 bpm ECG Measurements Heart Rate 68 AXIS IN [id number] P [id number] QRSd 117 QRS -25 QT 480 T [id number] QTc 512 Conclusion Atrial fibrillation. 68 no stemi
[2024-01-08] MEDS: Aspirin 325 MG TAB PO (15:29)
[2024-01-08 16:16] LABS: Bilirubin Moderate (Negative); Blood Moderate (Negative); Clarity Clear (Clear); Glucose Negative (Negative); Ketones Negative (Negative); Leukocyte Esterase Negative (Negative); Nitrite Negative (Negative); Specific Gravity 1.025 (1.005-1.025)
[2024-01-08 16:23] LABS: Bacteria Negative HPF (Negative); C & S Indicated? No; Crystals Negative HPF (Negative); Epithelial Cells Rare HPF (Negative); Mucus Heavy (Negative); WBC 0-2 HPF (0-5)
[2024-01-08] MEDS: NIFEdipine-CR 30 MG TABCR PO (16:45)
[2024-01-08 16:51] LABS: Troponin I 87 ng/L (< or =60)
[2024-01-08] MEDS: Carvedilol 6.25 MG TAB PO ×2 (17:55→21:37)
[2024-01-08] MEDS: hydrALAZINE 20 MG/ML VIAL 10 MG IVP (18:04)
--- NOTE | 2024-01-08 18:27 | HPE_ITS ---
Date of service: 01/08/24 Time of Service: 18:27 Assessment and Plan Assessment and plan (1) Hypertensive emergency: Status: Acute Assessment and plan: - Not have hypertensive emergency with persistently elevated blood pressures initially 190s systolic and also above 200 -Likely secondary to patient having not taken his home medications including his carvedilol, nifedipine and ranolazine -Plan was to start nicardipine drip, but prior to initiation patients blood pressure significantly improved, and is now with MAP 115 -at this time, will give 10mg IV PRN hydralizine if MAP >130 and plan to restart all home antihypertensives in the AM (2) Elevated troponin: Status: Acute Assessment and plan: -Patient without chest pain and without EKG changes -Emergency room physician discussed with [facility] cardiology who agreed this was likely slow troponin leak in the setting of hypertensive emergency as noted above (3) Pleural effusion, right: Status: Acute Assessment and plan: -General surgery aware patient is admitted and will attempt to coordinate thoracentesis during hospitalization (4) Chronic myeloid leukemia: Status: Chronic Assessment and plan: -Continue home busutinib (5) Essential hypertension: Status: Chronic Assessment and plan: -restarting home antihypertensives tomorrow AM as noted above (6) Coronary artery disease: Status: Chronic Assessment and plan: -History of left heart catheterization in 2017 with un-stentable mid LAD -Continue home aspirin and clopidogrel Qualifiers: Associated angina: unspecified whether angina present Coronary Disease- Associated Artery/Lesion type: [place] artery [place] vs. transplanted heart: [facility] Qualified Code(s): I25.10 - Atherosclerotic heart disease of [place] coronary artery without angina pectoris (7) Cardiomyopathy, ischemic: Status: Chronic Assessment and plan: - As noted on recent echocardiogram and October 2023 which showed anterior apical, anterior septal, and apical segment akinesis,but an EF of 50 to 55% History of Present Illness History of Present Illness Chief Complaint: not feeling well Narrative: 73-year-old male with a past medical history of hypertension, recurrent right pleural effusion, CML, coronary artery disease with ischemic cardiomyopathy, history of heart failure with recent echo showing EF of 50 to 55% who presents emergency department with complaints of not feeling well. Patient initially stated over the last few days he had been fishing for the entire day was outdoors and did not stay very well-hydrated. Specifically, he states that at night he felt more short of breath which she thought was due to his recurrent pleural effusion which he is scheduled to have it drained again on Tuesday, January 10, 2024. He denies any fevers, lightheadedness, dizziness or vomiting, but he did complain of some right upper quadrant pain that had since resolved as well as some diarrhea on Tuesday and Tuesday but has also resolved. In the emergency department the patient was noted as being significantly hypertensive with an initial blood pressure of 198/108. Remainder of his vital signs were within normal limits, CBC and CMP were unremarkable however, patient did have a mildly elevated troponin of 72 that did increase to 87, and a proBNP of 18,095. EKG was noted to be without signs of acute ischemia. He was given some IV fluids about 500 mL and did report that he was feeling better was also given full dose aspirin, and it was at this time that patient reported that he had been unable to take his medication for the last 3 days as he was having issues with his pharmacy. While in the emergency department he was given his 6.25 mg of carvedilol in addition to his home nifedipine, as well as a total of 10 mg of IV Lopressor and IV hydralazine however his blood pressure remained elevated with systolics over 200. Emergency room physician discussed case with [facility] cardiology who agreed that patient's troponin was likely due to his hypertensive emergency. Additionally, emergency room physician also reached out to general surgery so that the patient could potentially have his thoracentesis centesis performed while admitted, though at this time he has no signs of respiratory distress and is saturating in the high 90s on room air. Patient was started on nicardipine drip and emergency room physician paged hospitalist for admission for a patient with hypertensive emergency with signs of endorgan damage being elevated troponin. Review of Systems All systems reviewed & are unremarkable except as noted in HPI and below PFSH All Active Problems (Updated 01/08/24 @ 18:31 by David Chinchilla MD) Elevated troponin (Acute) Pleural effusion (Acute) Hypertensive emergency (Acute) Dysphagia (Acute) Ground glass opacity present on imaging of lung (Acute) Shortness of breath (Acute) Pleural effusion, right (Acute) Serum creatinine raised (Acute) Nocturnal hypoxia (Acute) COPD (chronic obstructive pulmonary disease) (Chronic) Hemoptysis (Acute) Ascites (Acute) Iron deficiency anemia (Acute) Early satiety (Acute) Weight loss (Acute) 20 lbs in 2 years B12 deficiency (Acute) Pulmonary hypertension (Acute) Cervical radicular pain (Acute) Shoulder pain (Acute) TIA (transient ischemic attack) (Acute) Pleural effusion (Acute) Palpitations (Acute) Coronary artery disease (Chronic) Sensorineural hearing loss of both ears (Acute) Cerumen impaction (Acute) CHF (congestive heart failure) (Chronic) Gastric ulcer (Acute 05/12/80) Pain in thumb joint with movement (Acute 01/04/13) Hypothyroid (Chronic) Vitamin D deficiency disease (Chronic) 06/22: D-26; D2-4.4; D3-22; [facility] Tricuspid regurgitation (Chronic 03/14/14) moderate Stable angina (Chronic 07/15/16) [facility] Psoriatic arthritis (Chronic 02/03/15) Psoriasis (Chronic) a. arthralgias b. 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 Prostatism (Chronic) Low back pain with right-sided sciatica (Chronic 05/12/03) L3-4 disc herniation/DDD; B/L foraminal l4-5, L5-S1; Lumbar radiculopathy 2002 Surgery 02/24 Impaired renal function disorder (Chronic 11/13/13) cr2.5 Hyperlipidemia (Chronic) 06/22: C-265; H-33; L-166; T-331; [facility] Hiatal hernia (Chronic 05/12/05) per EGD 07/19 Gout (Chronic 12/17/13) renal impairment, but not in range at 200mg daily - increased to 300mg daily Essential hypertension (Chronic 04/04/13) Diverticulosis of colon without diverticulitis (Chronic) 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) Cardiomyopathy, ischemic (Chronic 07/15/16) [facility] EF 35% BY 07/14/16 STRESS MPI Anxiety (Chronic) Actinic keratosis (Chronic 02/02/16) Pronation deformity of foot (Chronic) Personal history of colonic polyps (Chronic) Medical History S/P abdominal paracentesis (~11/2023) Calculus of gallbladder with chronic cholecystitis without obstruction (01/06/17) Hypokalemia (01/04/13) Kidney stone Smoker Superficial injury of forearm without infection (05/12/94) Urinary tract infectious disease (05/12/94) Kidney stone Smoker chews tobacco Gastric ulcer 05/12/80 Urinary tract infectious disease 05/12/94 Superficial injury of right forearm 05/12/94 nail gun injury Pain in thumb joint with movement 01/04/13 Hypokalemia 01/04/13 Calculus of gallbladder with chronic cholecystitis without obstruction 01/06/17 Abnormal thyroid blood test (08/10/16) Hypokalemia HTN (hypertension) Chronic myeloid leukemia Impaired renal function Ischemic cardiomyopathy ST elevation myocardial infarction (STEMI) involving left anterior descending (LAD) coronary artery in recovery phase Tricuspid regurgitation ASCVD (arteriosclerotic cardiovascular disease) Arthritis with psoriasis Gout Diverticulosis Surgical History History of thoracentesis (~12/2023) History of spinal surgery Status post vasectomy History of back surgery exc. of herniated intervertebral disc Other specified postprocedural states h/o back surgery exc. of herniated intervertebral disc S/P vasectomy Vasectomy PTC EGD - MAC Colonoscopy - MAC (06/18/16) Cholecystectomy (02/02/17) BACK SURGERY EXC HERNIA INTERVERTEBRAL DISC Family History Mother , age 39 Ulcerative colitis Father , age 56 Stroke Sister No problems noted. Social History Smoking/Tobacco Use Status: Former Tobacco Use tobacco type: cigarettes Quit Date: 06/13/72 Tobacco: How many years used: 3 Second Hand Exposure: Yes Smoking risk assessment performed?: Yes Alcohol Intake: current Alcohol Intake frequency: a few times a month Alcohol type: beer and hard liquor Substance use type: does not use Caregiver/Support person: No Household members: spouse Housing: house Number of Children: 2 Communication Needs: Hard of Hearing Do you need help understanding health information?: Never Pets and animals: Yes Pets and animals: cat(s) and dog(s) Sexually active: No Do you think of yourself as: straight/heterosexual Current gender identity: male What is your relationship status?: How often do you talk on the phone with friends or family?: once per week How often do you get together with friends or relatives?: once per week How often do you attend jew or scientologist services?: decline to answer Do you belong to any clubs or organized social groups?: no Panel score (0-1 are the most socially isolated patients): 1 What type of physical activity do you participate in: other Details: Gardening,mwing lawn Golfing Duration: 15-30 minutes/day Frequency: 1-2 times per week Charline/Jehovah'S Witness: No preference Special charline needs: No Seatbelt use: always Drive intox or ride 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Type cholecalciferol (vitamin D3) 125 5,000 unit PO DAILY 02/03/15 01/08/24 History mcg (5,000 unit) tablet aspirin 81 mg tablet,delayed 81 mg PO DAILY 07/19/16 01/08/24 History release bosutinib 100 mg tablet (Bosulif) 300 mg (3 x 100 mg) PO DAILY #90 04/27/22 01/08/24 Rx tabs nitroglycerin 0.4 mg sublingual 0.4 mg sublingual q 5 min #25 12/30/22 01/08/24 Rx tablet tab-caps clopidogrel 75 mg tablet 75 mg PO DAILY 90 days #90 tab-caps 03/17/23 01/08/24 Rx pantoprazole 40 mg tablet,delayed 40 mg PO DAILY #90 tab-caps 03/17/23 01/08/24 Rx release rosuvastatin 20 mg tablet 20 mg PO DAILY #90 tabs 03/17/23 01/08/24 Rx duloxetine 30 mg capsule,delayed 30 mg PO DAILY #90 caps 04/21/23 01/08/24 Rx release levothyroxine 50 mcg tablet 50 mcg PO DAILY #90 tabs 05/18/23 01/08/24 Rx etanercept 50 mg/mL (1 mL) 50 mg subcut QWEEK #12 mL 07/11/23 01/08/24 Rx subcutaneous pen injector ranolazine 500 mg tablet,extended 500 mg PO BID #180 tab-caps 08/29/23 01/08/24 Rx release,12 hr nifedipine 30 mg tablet,extended 30 mg PO DAILY #90 tabs 01/02/24 01/08/24 Rx release carvedilol 6.25 mg tablet 6.25 mg PO BID #180 tabs 01/05/24 01/08/24 Rx Exam Narrative Exam Narrative: well appearing older gentleman laying in bed in no acute distress, AOx4, heart RRR, lungs CTAB on left, absent breath sounds on the right about 2/3 up, abdomen soft, non-tender, non-distended Results Labs 01/08/24 14:30 01/08/24 14:30 Labs: Laboratory Results - last 24 hr 01/08/24 01/08/24 01/08/24 14:05 14:30 16:13 WBC 6.91 RBC 5.42 Hgb 14.4 Hct 45.3 MCV 84 MCH 26.6 L MCHC 31.8 L RDW 20.2 H Plt Count 301 MPV 9.9 Immature Gran % 0.3 Neutrophils % 73.1 Lymphocytes % 13.5 Monocytes % 11.0 Eosinophils % 1.4 Basophils % 0.7 Nucleated RBC % 0.0 Absolute Neutrophils 5.05 Absolute Lymphocytes 0.93 L Absolute Monocytes 0.76 Absolute Eosinophils 0.10 Absolute Basophils 0.05 RBC Morphology See Below Anisocytosis 1+ PT 11.0 INR 1.1 APTT 28.8 Sodium Cancelled 139 Potassium Cancelled 4.0 Chloride Cancelled 104 Carbon Dioxide Cancelled 24.6 Anion Gap Cancelled 10.4 BUN Cancelled 18 Creatinine Cancelled 1.9 H Est GFR (CKD-EPI 2020) Cancelled 36.79 Glucose Cancelled 107 H Calcium Cancelled 9.0 Magnesium Cancelled 1.9 Total Bilirubin Cancelled 0.80 AST Cancelled 29 ALT Cancelled 30 Alkaline Phosphatase Cancelled 104 Creatine Kinase 204 Troponin I 72 H* NT-Pro-B Natriuret Pep 51898 H Total Protein Cancelled 7.9 Albumin Cancelled 3.8 Lipase 24 Urine Color Dark Yellow Urine Clarity Clear Urine pH 6.0 Ur Specific [place] 1.025 Urine Protein >=300 H Urine Ketones Negative Urine Blood Moderate H Urine Nitrite Negative Urine Bilirubin Moderate H Urine Urobilinogen 1.0 H Ur Leukocyte Esterase Negative Urine RBC 5-10 H Urine WBC 0-2 Ur Epithelial Cells Rare Urine Crystals Negative Urine Bacteria Negative Urine Mucus Heavy Ur Culture Indicated? No Urine Glucose Negative 01/08/24 16:20 WBC RBC Hgb Hct MCV MCH MCHC RDW Plt Count MPV Immature Gran % Neutrophils % Lymphocytes % Monocytes % Eosinophils % Basophils % Nucleated RBC % Absolute Neutrophils Absolute Lymphocytes Absolute Monocytes Absolute Eosinophils Absolute Basophils RBC Morphology Anisocytosis PT INR APTT Sodium Potassium Chloride Carbon Dioxide Anion Gap BUN Creatinine Est GFR (CKD-EPI 2020) Glucose Calcium Magnesium Total Bilirubin AST ALT Alkaline Phosphatase Creatine Kinase Troponin I 87 H* NT-Pro-B Natriuret Pep Total Protein Albumin Lipase Urine Color Urine Clarity Urine pH Ur Specific [place] Urine Protein Urine Ketones Urine Blood Urine Nitrite Urine Bilirubin Urine Urobilinogen Ur Leukocyte Esterase Urine RBC Urine WBC Ur Epithelial Cells Urine Crystals Urine Bacteria Urine Mucus Ur Culture Indicated? Urine Glucose Last Vital Signs Temp 98.7 F 01/08/24 13:46 Pulse 68 01/08/24 18:00 Resp 22 01/08/24 18:01 BP 198/130 H 01/08/24 18:00 Pulse Ox 97 01/08/24 18:01 Time Spent Time spent with Patient: >75 minutes Time was spent: preparing to see the patient(eg.review tests), obtaining and/or reviewing separately otained hiistory, ordering medications,tests, procedures, referring, communicating with other health child daycare worker, indepentently interpreting results, counseling the patient and care coordination
[2024-01-08] MEDS: Ondansetron 4 MG/2 ML VIAL IVP (18:35)
--- NOTE | 2024-01-08 18:57 | W.PC.ACHO ---
Registration Status: Primary Language: Preferred Language: ED Information & Data Chief Complaint GenMedical 01/08/24 14:19 Chief Complaint GenMedical 01/08/24 14:17 Triage Note Pt patient & he has had 01/08/24 13:46 right lung drained twice by Dr. Cuello and difficulty swallowing. Has an xray ordered for tomorrow morning for lungs & esophagus. Increased difficulty swallowing since tuesday, has not been able to eat or drink. Has an appt w/kidney specialist in January to see if that's the cause of the fluid buildup. 01/20 pain in stomach feels like contractions intermittently , diarrhea earlier which feels better today Medical / Surgical History (Last Reviewed 01/08/24 @ 14:43 by Gris Burns MD) S/P abdominal paracentesis (~11/2023) Calculus of gallbladder with chronic cholecystitis without obstruction (01/06/17) Hypokalemia (01/04/13) Kidney stone Smoker Superficial injury of forearm without infection (05/12/94) Urinary tract infectious disease (05/12/94) Kidney stone Smoker Gastric ulcer Urinary tract infectious disease Superficial injury of right forearm Pain in thumb joint with movement Hypokalemia Calculus of gallbladder with chronic cholecystitis without obstruction Abnormal thyroid blood test (08/10/16) Hypokalemia HTN (hypertension) Chronic myeloid leukemia Impaired renal function Ischemic cardiomyopathy ST elevation myocardial infarction (STEMI) involving left anterior descending (LAD) coronary artery in recovery phase Tricuspid regurgitation ASCVD (arteriosclerotic cardiovascular disease) Arthritis with psoriasis Gout Diverticulosis (Last Reviewed 01/08/24 @ 14:43 by Gris Burns MD) History of thoracentesis (~12/2023) History of spinal surgery Status post vasectomy History of back surgery Other specified postprocedural states S/P vasectomy Vasectomy PTC EGD - MAC Colonoscopy - MAC (06/18/16) Cholecystectomy (02/02/17) BACK SURGERY Most Recent Vital Signs Temperature 37.1 C 01/08/24 13:46 Temperature Source Skin 01/08/24 13:46 Pulse 68 01/08/24 18:31 Pulse 75 01/08/24 18:31 Respiratory Rate 19 01/08/24 18:31 Respiratory Effort Normal 01/08/24 14:19 Respiratory Depth Normal 01/08/24 14:19 Respiratory Pattern Normal 01/08/24 14:19 Blood Pressure 188/95 H 01/08/24 18:31 Blood Pressure Mean 125 01/08/24 18:31 Blood Pressure Position Supine 01/08/24 14:19 Pulse Oximetry 97 01/08/24 18:31 Oxygen Delivery Method Room Air 01/08/24 14:19 Oxygen Flow Rate 0 01/08/24 13:46 Pain Level 8 01/08/24 13:46 Allergies chlorthalidone Allergy (Severe, Verified 01/08/24 14:18) facial swelling dexamethasone Allergy (Intermediate, Verified 01/08/24 14:18) severe facial swelling used dexamethasone mouthwash for several days - had severe facial swelling, fever and chills. Labs and blood cultures negative lisinopril Allergy (Intermediate, Verified 01/08/24 14:18) Facial swelling losartan Adverse Reaction (Intermediate, Verified 01/08/24 14:18) MUSCLE WEAKNESS FROM COZAAR amlodipine Adverse Reaction (Mild, Verified 01/08/24 14:18) FUNNY FEELING Precautions Isolation Standard precaution 01/08/24 14:19 IV IV Catheter Type [Left Peripheral IV Antecubital] IV Catheter Gauge [Left 18 Antecubital] Diagnostics 01/08/24 01/08/24 01/08/24 Range/Units 16:20 16:13 14:30 WBC 6.91 (4.4-10.8) 10^3/uL RBC 5.42 (4.36-5.78) 10^6/uL Hgb 14.4 (13.5-17.5) g/dL Hct 45.3 (40.0-50.0) % MCV 84 (80-95) fL MCH 26.6 L (27.0-33.0) pg MCHC 31.8 L (32.0-36.0) % RDW 20.2 H (11.8-14.1) % Plt Count 301 (130-400) 10^3/uL MPV 9.9 (8.0-11.0) fL Immature Gran % 0.3 % Neutrophils % 73.1 % Lymphocytes % 13.5 % Monocytes % 11.0 % Eosinophils % 1.4 % Basophils % 0.7 % Nucleated RBC % 0.0 (0.0-0.3) % Absolute Neutrophils 5.05 (1.2-6.7) 10^3/uL Absolute Lymphocytes 0.93 L (1.2-3.4) 10^3/uL Absolute Monocytes 0.76 (0.1-0.8) 10^3/uL Absolute Eosinophils 0.10 (0.0-0.7) 10^3/uL Absolute Basophils 0.05 (0.0-0.2) 10^3/uL RBC Morphology See Below Anisocytosis 1+ PT 11.0 (9.1-11.1) sec INR 1.1 (0.9-1.1) APTT 28.8 (23.6-32.8) sec Sodium 139 Potassium 4.0 Chloride 104 Carbon Dioxide 24.6 Anion Gap 10.4 BUN 18 Creatinine 1.9 H Est GFR (CKD-EPI 2020) 36.79 Glucose 107 H Calcium 9.0 Magnesium 1.9 Total Bilirubin 0.80 AST 29 ALT 30 Alkaline Phosphatase 104 Creatine Kinase 204 (39-308) U/L Troponin I 87 H* 72 H* (< or =60) ng/L NT-Pro-B Natriuret Pep 44229 H (<300) pg/mL Total Protein 7.9 Albumin 3.8 Lipase 24 (16-77) U/L Urine Color Dark Yellow (Yellow) Urine Clarity Clear (Clear) Urine pH 6.0 (5-8) Ur Specific [place] 1.025 (1.005-1.025) Urine Protein >=300 H (Neg-Trace) mg/dL Urine Ketones Negative (Negative) mg/dL Urine Blood Moderate H (Negative) Urine Nitrite Negative (Negative) Urine Bilirubin Moderate H (Negative) Urine Urobilinogen 1.0 H (Up to 0.2) mg/dL Ur Leukocyte Esterase Negative (Negative) Urine RBC 5-10 H (0-2) HPF Urine WBC 0-2 (0-5) HPF Ur Epithelial Cells Rare (Negative) HPF Urine Crystals Negative (Negative) HPF Urine Bacteria Negative (Negative) HPF Urine Mucus Heavy (Negative) Ur Culture Indicated? No Urine Glucose Negative (Negative) mg/dL 01/08/24 Range/Units 14:05 WBC (4.4-10.8) 10^3/uL RBC (4.36-5.78) 10^6/uL Hgb (13.5-17.5) g/dL Hct (40.0-50.0) % MCV (80-95) fL MCH (27.0-33.0) pg MCHC (32.0-36.0) % RDW (11.8-14.1) % Plt Count (130-400) 10^3/uL MPV (8.0-11.0) fL Immature Gran % % Neutrophils % % Lymphocytes % % Monocytes % % Eosinophils % % Basophils % % Nucleated RBC % (0.0-0.3) % Absolute Neutrophils (1.2-6.7) 10^3/uL Absolute Lymphocytes (1.2-3.4) 10^3/uL Absolute Monocytes (0.1-0.8) 10^3/uL Absolute Eosinophils (0.0-0.7) 10^3/uL Absolute Basophils (0.0-0.2) 10^3/uL RBC Morphology Anisocytosis PT (9.1-11.1) sec INR (0.9-1.1) APTT (23.6-32.8) sec Sodium Cancelled Potassium Cancelled Chloride Cancelled Carbon Dioxide Cancelled Anion Gap Cancelled BUN Cancelled Creatinine Cancelled Est GFR (CKD-EPI 2020) Cancelled Glucose Cancelled Calcium Cancelled Magnesium Cancelled Total Bilirubin Cancelled AST Cancelled ALT Cancelled Alkaline Phosphatase Cancelled Creatine Kinase (39-308) U/L Troponin I (< or =60) ng/L NT-Pro-B Natriuret Pep (<300) pg/mL Total Protein Cancelled Albumin Cancelled Lipase (16-77) U/L Urine Color (Yellow) Urine Clarity (Clear) Urine pH (5-8) Ur Specific [place] (1.005-1.025) Urine Protein (Neg-Trace) mg/dL Urine Ketones (Negative) mg/dL Urine Blood (Negative) Urine Nitrite (Negative) Urine Bilirubin (Negative) Urine Urobilinogen (Up to 0.2) mg/dL Ur Leukocyte Esterase (Negative) Urine RBC (0-2) HPF Urine WBC (0-5) HPF Ur Epithelial Cells (Negative) HPF Urine Crystals (Negative) HPF Urine Bacteria (Negative) HPF Urine Mucus (Negative) Ur Culture Indicated? Urine Glucose (Negative) mg/dL Intake and Output - 24 Hour Total 01/08/24 13:44 thru 01/08/24 15:49 Intake Total 250 Balance 250 Weight 70.896 kg Intake: IV 250 Falls Risk Assessment History of Falls No History 01/08/24 14:19 Fall Total Score 0 01/08/24 14:19 Level of Risk Standard/Low Risk 01/08/24 14:19 Problems (Last Reviewed 01/08/24 @ 14:43 by Gris Burns MD) Elevated troponin (Acute) Hypertensive emergency (Acute) Pleural effusion, right (Acute) Coronary artery disease (Chronic) Essential hypertension (Chronic 04/04/13) 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) Cardiomyopathy, ischemic (Chronic 07/15/16) v v v v v v v v v Sending and/or Receiving Nurses: Please use comment section below to note any information pertinent to the patient hand-off not included above. Information / Comments: Report received from: [facility]
[2024-01-08] MEDS: Normal Saline Flush 10 ML SYR IVP (21:37)
[2024-01-08] MEDS: Enoxaparin 30 MG/0.3 ML SYR SC (21:37)
[2024-01-08 22:08] LABS: Troponin I 87 ng/L (< or =60)
[2024-01-08] MEDS: diphenhydrAMINE 25 MG CAP PO (23:47)
[2024-01-09] VITALS (27 sets, daily range): BP systolic 91–160; BP diastolic 54–111; PULSE 61–98; RESP 14–25; TEMP 36.6–37; O2SAT 79–99
[2024-01-09 06:20] LABS: HCT 43.3 % (40.0-50.0); HGB 13.5 g/dL (13.5-17.5); MCH 26.5 pg (27.0-33.0); MCHC 31.2 % (32.0-36.0); MCV 85 fL (80-95); MPV 9.8 fL (8.0-11.0); Platelet Count 241 10^3/uL (130-400); RBC 5.09 10^6/uL (4.36-5.78); RDW 19.9 % (11.8-14.1); RDW-SD 61.6 fL; WBC 6.97 10^3/uL (4.4-10.8)
[2024-01-09 06:52] LABS: Anion Gap 10.3 mmol/L (3-11); BUN 20 mg/dL (7-18); CO2 25.7 mmol/L (21.0-32.0); CREATININE 1.6 mg/dL (0.70-1.30); Calcium 8.8 mg/dL (8.5-10.1); Chloride 106 mmol/L (98-107); Estimated GFR 45.21 (mL/min/1.73m2); Glucose 96 mg/dL (74-106); Potassium 4.2 mmol/L (3.5-5.1); Sodium 142 mmol/L (136-145)
[2024-01-09 06:55] LABS: Troponin I 63 ng/L (< or =60)
--- NOTE | 2024-01-09 07:56 | W.PALLCONSUL ---
Date of service: 01/09/24 Time of Service: 07:56 History of Present Illness History of Present Illness Chief Complaint: feeling unwell Narrative: Freddie is a 73-year-old man who has a number of comorbidities including recurrent right lateral effusion, COPD, nighttime hypoxia, sleep apnea but unable to tolerate CPAP, 20 pound weight loss in 2 years, pulmonary hypertension, recurrent congestive heart failure, psoriatic arthritis on immunosuppression, severe low back pain status post multiple surgeries, impaired renal function, ischemic cardiomyopathy. He was fishing on Tuesday and did not drink enough fluid, he was not really able to eat much Tuesday or Tuesday. He felt so unwell well on Tuesday that he went to the emergency room. In the emergency room he was found to have an elevated troponin thought to be due to his high blood pressure. He has had 3 days of not taking his meds due to a problem with the pharmacy. He also qualifies for nighttime oxygen but it has been weeks since this is been put into place. I am his PCP and I most recently worked on this . In the emergency room he was found to have an elevated troponin, hypertensive emergency and a creatinine of 1.6. His chest x-ray did show a pleural effusion. Initially he was started on an antihypertensive via IV, admitted to the ICU. When I came in to see him today he states that he still has a difficult time breathing and is very interested in getting some of the fluid off of his lungs again. He did not sleep well. Assessment and Plan Assessment and plan (1) Advance care planning: Status: Acute Assessment and plan: I will be back later today to discuss CODE STATUS with Shiv and his Laurita. Laurita knows to be there between 3 and 5. Addendum Laurita Frazier his , and myself discussed CODE STATUS. We talked about survival rate. We talked about adverse events as well as possible outcomes. After discussion and shared decision making Freddie has decided he would not want CPR but still wants other aggressive care and definitely IV fluids antibiotics etc. Plan is for him to have thoracentesis tomorrow. (2) Essential hypertension: Status: Chronic (3) Hypertensive emergency: Status: Ruled-out (4) Cardiomyopathy, ischemic: Status: Chronic Assessment and plan: He has severe cardiomyopathy. He does need his medications. I am not certain how much of the anorexia and feeling unwell is due to dehydration and how much is due to lack of his needed medications The big problem is his chest effusion. I have been in contact with Dr. Cuello. Hopefully he will be able to have this drained today He has dysphagia and I had ordered a barium swallow. I have let Dr. Carey know that this was ordered for this morning at 9 something. Hopefully he will order it inpatient CML stable Psoriatic arthritis on immunosuppressants Will meet back later when his is present Review of Systems Narrative: Has not been sleeping well, unable to eat much due to feeling unwell. Short of breath. [facility] All Active Problems (Updated 01/12/24 @ 00:05 by JODI SAWANT) Atrial fibrillation (Chronic) Advance care planning (Acute) Dysphagia (Acute) Ground glass opacity present on imaging of lung (Acute) Shortness of breath (Acute) Pleural effusion, right (Acute) Serum creatinine raised (Acute) Nocturnal hypoxia (Acute) COPD (chronic obstructive pulmonary disease) (Chronic) Hemoptysis (Acute) Ascites (Acute) Iron deficiency anemia (Acute) Early satiety (Acute) Weight loss (Acute) 20 lbs in 2 years B12 deficiency (Acute) Pulmonary hypertension (Acute) Cervical radicular pain (Acute) Shoulder pain (Acute) Pleural effusion (Acute) Palpitations (Acute) Sensorineural hearing loss of both ears (Acute) Cerumen impaction (Acute) Pain in thumb joint with movement (Acute 01/04/13) Hypothyroid (Chronic) Vitamin D deficiency disease (Chronic) 06/22: D-26; D2-4.4; D3-22; [facility] Stable angina (Chronic 07/15/16) [facility] Psoriatic arthritis (Chronic 02/03/15) Psoriasis (Chronic) a. arthralgias b. 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 Prostatism (Chronic) Low back pain with right-sided sciatica (Chronic 05/12/03) L3-4 disc herniation/DDD; B/L foraminal l4-5, L5-S1; Lumbar radiculopathy 2002 Surgery 02/24 Impaired renal function disorder (Chronic 11/13/13) cr2.5 Hyperlipidemia (Chronic) 06/22: C-265; H-33; L-166; T-331; [facility] Hiatal hernia (Chronic 05/12/05) per EGD 07/19 Gout (Chronic 12/17/13) renal impairment, but not in range at 200mg daily - increased to 300mg daily Essential hypertension (Chronic 04/04/13) Diverticulosis of colon without diverticulitis (Chronic) 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) Cardiomyopathy, ischemic (Chronic 07/15/16) [facility] [place] EF 35% BY 07/14/16 STRESS MPI Anxiety (Chronic) Actinic keratosis (Chronic 02/02/16) Pronation deformity of foot (Chronic) Personal history of colonic polyps (Chronic) Medical History S/P abdominal paracentesis (~11/2023) Calculus of gallbladder with chronic cholecystitis without obstruction (01/06/17) Hypokalemia (01/04/13) Kidney stone Smoker Superficial injury of forearm without infection (05/12/94) Urinary tract infectious disease (05/12/94) Kidney stone Smoker chews tobacco Gastric ulcer 05/12/80 Urinary tract infectious disease 05/12/94 Superficial injury of right forearm 05/12/94 nail gun injury Pain in thumb joint with movement 01/04/13 Hypokalemia 01/04/13 Calculus of gallbladder with chronic cholecystitis without obstruction 01/06/17 Abnormal thyroid blood test (08/10/16) Hypokalemia HTN (hypertension) Chronic myeloid leukemia Impaired renal function Ischemic cardiomyopathy ST elevation myocardial infarction (STEMI) involving left anterior descending (LAD) coronary artery in recovery phase Tricuspid regurgitation ASCVD (arteriosclerotic cardiovascular disease) Arthritis with psoriasis Gout Diverticulosis Surgical History History of thoracentesis (~12/2023) History of spinal surgery Status post vasectomy History of back surgery exc. of herniated intervertebral disc Other specified postprocedural states h/o back surgery exc. of herniated intervertebral disc S/P vasectomy Vasectomy PTC EGD - MAC Colonoscopy - MAC (06/18/16) Cholecystectomy (02/02/17) BACK SURGERY EXC HERNIA INTERVERTEBRAL DISC Family History Mother , age 39 Ulcerative colitis Father , age 56 Stroke Sister No problems noted. Social History Smoking/Tobacco Use Status: Former Tobacco Use tobacco type: cigarettes Quit Date: 06/13/72 Tobacco: How many years used: 3 Second Hand Exposure: Yes Smoking risk assessment performed?: Yes Alcohol Intake: current Alcohol Intake frequency: a few times a month Alcohol type: beer and hard liquor Substance use type: does not use Caregiver/Support person: No Household members: spouse Housing: house Number of Children: 2 Communication Needs: Hard of Hearing Do you need help understanding health information?: Never Pets and animals: Yes Pets and animals: cat(s) and dog(s) Sexually active: No Do you think of yourself as: straight/heterosexual Current gender identity: male What is your relationship status?: How often do you talk on the phone with friends or family?: once per week How often do you get together with friends or relatives?: once per week How often do you attend voodoo or gnosticist services?: decline to answer Do you belong to any clubs or organized social groups?: no Panel score (0-1 are the most socially isolated patients): 1 What type of physical activity do you participate in: other Details: Gardening,mwing lawn Golfing Duration: 15-30 minutes/day Frequency: 1-2 times per week Charline/Mu-Ism: No preference Special charline needs: No Seatbelt use: always Drive intox or ride w/intox dedicated driver: No Do you feel safe at home: Yes Do you feel safe in your relationship?: Yes Exam Narrative Exam Narrative: Freddie is lying in bed. He smiles talks and chats. He is able to speak in complete sentences. His heart is not tachycardic at this time. Blood pressure still remains elevated. His right lung is dull about mcfp up. Left is normal. Abdomen is soft nontender. Does not have any edema Results Last Vital Signs Temp 97.9 F 01/09/24 04:25 Pulse 81 01/09/24 06:02 Resp 16 01/09/24 06:02 BP 148/85 H 01/09/24 06:02 Pulse Ox 98 01/09/24 06:02 FINDINGS: The PA and lateral chest films show normal heart size. Stable right pleural effusion. The lateral timber management assistant view of the neck is unremarkable. Esophagus: The patient swallowed barium without difficulty. Noevidence for mucosal erosions. Nofold thickening. No mass is visible. Nostricture. Motility: There is a normal primary stripping wave. No tertiary contractions were noted. There is no hiatal hernia. Nogastroesophageal reflux was observed during the exam. IMPRESSION: Normal barium swallow. Stable size of right pleural effusion. Labs 01/09/24 06:00 01/11/24 05:30 Labs: Laboratory Results - last 24 hr 01/08/24 01/08/24 01/08/24 14:05 14:30 16:13 WBC 6.91 RBC 5.42 Hgb 14.4 Hct 45.3 MCV 84 MCH 26.6 L MCHC 31.8 L RDW 20.2 H Plt Count 301 MPV 9.9 Immature Gran % 0.3 Neutrophils % 73.1 Lymphocytes % 13.5 Monocytes % 11.0 Eosinophils % 1.4 Basophils % 0.7 Nucleated RBC % 0.0 Absolute Neutrophils 5.05 Absolute Lymphocytes 0.93 L Absolute Monocytes 0.76 Absolute Eosinophils 0.10 Absolute Basophils 0.05 RBC Morphology See Below Anisocytosis 1+ PT 11.0 INR 1.1 APTT 28.8 Sodium Cancelled 139 Potassium Cancelled 4.0 Chloride Cancelled 104 Carbon Dioxide Cancelled 24.6 Anion Gap Cancelled 10.4 BUN Cancelled 18 Creatinine Cancelled 1.9 H Est GFR (CKD-EPI 2020) Cancelled 36.79 Glucose Cancelled 107 H Calcium Cancelled 9.0 Magnesium Cancelled 1.9 Total Bilirubin Cancelled 0.80 AST Cancelled 29 ALT Cancelled 30 Alkaline Phosphatase Cancelled 104 Creatine Kinase 204 Troponin I 72 H* NT-Pro-B Natriuret Pep 98780 H Total Protein Cancelled 7.9 Albumin Cancelled 3.8 Lipase 24 Urine Color Dark Yellow Urine Clarity Clear Urine pH 6.0 Ur Specific [place] 1.025 Urine Protein >=300 H Urine Ketones Negative Urine Blood Moderate H Urine Nitrite Negative Urine Bilirubin Moderate H Urine Urobilinogen 1.0 H Ur Leukocyte Esterase Negative Urine RBC 5-10 H Urine WBC 0-2 Ur Epithelial Cells Rare Urine Crystals Negative Urine Bacteria Negative Urine Mucus Heavy Ur Culture Indicated? No Urine Glucose Negative 01/08/24 01/08/24 01/09/24 16:20 21:40 06:00 WBC 6.97 RBC 5.09 Hgb 13.5 Hct 43.3 MCV 85 MCH 26.5 L MCHC 31.2 L RDW 19.9 H Plt Count 241 MPV 9.8 Immature Gran % Neutrophils % Lymphocytes % Monocytes % Eosinophils % Basophils % Nucleated RBC % Absolute Neutrophils Absolute Lymphocytes Absolute Monocytes Absolute Eosinophils Absolute Basophils RBC Morphology Anisocytosis PT INR APTT Sodium 142 Potassium 4.2 Chloride 106 Carbon Dioxide 25.7 Anion Gap 10.3 BUN 20 H Creatinine 1.6 H Est GFR (CKD-EPI 2020) 45.21 Glucose 96 Calcium 8.8 Magnesium Total Bilirubin AST ALT Alkaline Phosphatase Creatine Kinase Troponin I 87 H* 87 H* 63 H* NT-Pro-B Natriuret Pep Total Protein Albumin Lipase Urine Color Urine Clarity Urine pH Ur Specific Sidney Urine Protein Urine Ketones Urine Blood Urine Nitrite Urine Bilirubin Urine Urobilinogen Ur Leukocyte Esterase Urine RBC Urine WBC Ur Epithelial Cells Urine Crystals Urine Bacteria Urine Mucus Ur Culture Indicated? Urine Glucose
[2024-01-09] MEDS: Pantoprazole 40 MG TABCR PO (08:11)
[2024-01-09] MEDS: NIFEdipine-CR 30 MG TABCR PO (08:11)
[2024-01-09] MEDS: Levothyroxine 25 MCG TAB 50 MCG PO (08:11)
[2024-01-09] MEDS: Ranolazine 500 MG TABCR PO ×2 (08:11→20:11)
[2024-01-09] MEDS: Carvedilol 6.25 MG TAB PO ×2 (08:12→20:11)
[2024-01-09] MEDS: DULoxetine 30 MG CAP PO (08:12)
[2024-01-09] MEDS: Normal Saline Flush 10 ML SYR IVP ×4 (08:12→20:11)
[2024-01-09] MEDS: Rosuvastatin 20 MG TAB PO (08:12)
--- NOTE | 2024-01-09 09:00 | INITIAL_ITS ---
Date of service: 01/09/24 Time of Service: 09:01 Care Management Initial Assmt Initial Assessment Reason for Hospitalization: Hypertension Functional Status/Living Situation Patient Presentation: Paco was sitting up on his bed visiting with his family when CM met with him. He was in good spirits and engaged easily with CM. Paco was admitted over the weekend with hypertension and shortness of breath. He has been getting recurrent pleural effusions and has needed to have a thoracentesis every couple of weeks. He reported that the physicians are not sure why this is happening. He does have CHF and CKD and has also has been receiving treatment for CML for many years which he has been told may be contributing.Surgery has been consulted to determine if they can perform his thoracentesis while he is in the hospital as it is due to be done soon. 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) Instrumental Activities of Daily Living (ADLs): Independent Medications Medication Management: No Issues/Barriers identified Advance Directives Advance Directives: Do you have an Advance Directive: Y 05/15/20 09:05 AD On File at [facility]: Y 05/15/20 09:05 Date Asked 05/15/20 11/24/23 14:49 AD Date Reviewed 01/08/24 01/08/24 19:30 COLST On File at [facility] Yes 08/10/16 15:59 COLST Date Scanned 08/10/18 01/23/19 08:52 Code Status Resuscitation Status Full Code Insurance Coverage/Financial Issues Insurance: Medicare A[employer]na supplement Care Team Visit Care Team Role Provider Type Sonam Samayoa MD, [place] Primary Care Provider , [facility] Gracie Emery, [employer] Other Providers SPEECH LANGUAGE PATHOLOGIST Cee Watson, [employer] Other Providers SPEECH LANGUAGE PATHOLOGIST Constance Bernard Other Providers SPEECH LANGUAGE PATHOLOGIST Evette Briggs, [employer] Other Providers SPEECH LANGUAGE PATHOLOGIST Sosa Talbert, YANIRA Other Providers SPEECH LANGUAGE PATHOLOGIST Gris Burns MD Emergency Provider [facility] STAFF PHYSICIAN David Chinchilla MD Admit Provider [facility] STAFF PHYSICIAN Attending Provider Discharge Potential Discharge Needs: PCP F/U Appt Anticipated Barriers to Discharge: None Identified Patient/Family Education Needs: Review discharge instructions, discuss Ask Me Three Transportation: Private vehicle Plan: Anticipate Paco will be discharged home with no new services. He will follow up with his community providers and plan of care and transport with family. CM will continue to support discharge planning. PFSH All Active Problems (Updated 01/09/24 @ 12:36 by Miriam Templeton MD) Hypertensive urgency (Acute) Advance care planning (Acute) Elevated troponin (Acute) Pleural effusion (Acute) Hypertensive emergency (Acute) Dysphagia (Acute) Ground glass opacity present on imaging of lung (Acute) Shortness of breath (Acute) Pleural effusion, right (Acute) Serum creatinine raised (Acute) Nocturnal hypoxia (Acute) COPD (chronic obstructive pulmonary disease) (Chronic) Hemoptysis (Acute) Ascites (Acute) Iron deficiency anemia (Acute) Early satiety (Acute) Weight loss (Acute) 20 lbs in 2 years B12 deficiency (Acute) Pulmonary hypertension (Acute) Cervical radicular pain (Acute) Shoulder pain (Acute) TIA (transient ischemic attack) (Acute) Pleural effusion (Acute) Palpitations (Acute) Coronary artery disease (Chronic) Sensorineural hearing loss of both ears (Acute) Cerumen impaction (Acute) CHF (congestive heart failure) (Chronic) Gastric ulcer (Acute 05/12/80) Pain in thumb joint with movement (Acute 01/04/13) Hypothyroid (Chronic) Vitamin D deficiency disease (Chronic) 06/22: D-26; D2-4.4; D3-22; [facility] Tricuspid regurgitation (Chronic 03/14/14) moderate Stable angina (Chronic 07/15/16) [facility] Psoriatic arthritis (Chronic 02/03/15) Psoriasis (Chronic) a. arthralgias b. 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 Prostatism (Chronic) Low back pain with right-sided sciatica (Chronic 05/12/03) L3-4 disc herniation/DDD; B/L foraminal l4-5, L5-S1; Lumbar radiculopathy 2002 Surgery 02/24 Impaired renal function disorder (Chronic 11/13/13) cr2.5 Hyperlipidemia (Chronic) 06/22: C-265; H-33; L-166; T-331; [facility] Hiatal hernia (Chronic 05/12/05) per EGD 07/19 Gout (Chronic 12/17/13) renal impairment, but not in range at 200mg daily - increased to 300mg daily Essential hypertension (Chronic 04/04/13) Diverticulosis of colon without diverticulitis (Chronic) 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) Cardiomyopathy, ischemic (Chronic 07/15/16) [facility] EF 35% BY 07/14/16 STRESS MPI Anxiety (Chronic) Actinic keratosis (Chronic 02/02/16) Pronation deformity of foot (Chronic) Personal history of colonic polyps (Chronic) Medical History S/P abdominal paracentesis (~11/2023) Calculus of gallbladder with chronic cholecystitis without obstruction (01/06/17) Hypokalemia (01/04/13) Kidney stone Smoker Superficial injury of forearm without infection (05/12/94) Urinary tract infectious disease (05/12/94) Kidney stone Smoker chews tobacco Gastric ulcer 05/12/80 Urinary tract infectious disease 05/12/94 Superficial injury of right forearm 05/12/94 nail gun injury Pain in thumb joint with movement 01/04/13 Hypokalemia 01/04/13 Calculus of gallbladder with chronic cholecystitis without obstruction 01/06/17 Abnormal thyroid blood test (08/10/16) Hypokalemia HTN (hypertension) Chronic myeloid leukemia Impaired renal function Ischemic cardiomyopathy ST elevation myocardial infarction (STEMI) involving left anterior descending (LAD) coronary artery in recovery phase Tricuspid regurgitation ASCVD (arteriosclerotic cardiovascular disease) Arthritis with psoriasis Gout Diverticulosis Surgical History History of thoracentesis (~12/2023) History of spinal surgery Status post vasectomy History of back surgery exc. of herniated intervertebral disc Other specified postprocedural states h/o back surgery exc. of herniated intervertebral disc S/P vasectomy Vasectomy PTC EGD - MAC Colonoscopy - MAC (06/18/16) Cholecystectomy (02/02/17) BACK SURGERY EXC HERNIA INTERVERTEBRAL DISC Family History Mother , age 39 Ulcerative colitis Father , age 56 Stroke Sister No problems noted. Social History Smoking/Tobacco Use Status: Former Tobacco Use tobacco type: cigarettes Quit Date: 06/13/72 Tobacco: How many years used: 3 Second Hand Exposure: Yes Smoking risk assessment performed?: Yes Alcohol Intake: current Alcohol Intake frequency: a few times a month Alcohol type: beer and hard liquor Substance use type: does not use Caregiver/Support person: No Household members: spouse Housing: house Number of Children: 2 Communication Needs: Hard of Hearing Do you need help understanding health information?: Never Pets and animals: Yes Pets and animals: cat(s) and dog(s) Sexually active: No Do you think of yourself as: straight/heterosexual Current gender identity: male What is your relationship status?: How often do you talk on the phone with friends or family?: once per week How often do you get together with friends or relatives?: once per week How often do you attend advent or mormonism services?: decline to answer Do you belong to any clubs or organized social groups?: no Panel score (0-1 are the most socially isolated patients): 1 What type of physical activity do you participate in: other Details: Gardening,mwing lawn Golfing Duration: 15-30 minutes/day Frequency: 1-2 times per week Charline/Anabaptist: No preference Special charline needs: No Seatbelt use: always Drive intox or ride w/intox equipment driver: No Do you feel safe at home: Yes Do you feel safe in your relationship?: Yes SDOH(Care Management) Screening Will the Patient Participate in the Screening?: Declined to provide
--- NOTE | 2024-01-09 09:45 | W.SPSTE ---
Date of service: 01/09/24 Time of Service: 08:10 Subjective Clinical (Bedside) Swallow Evaluation Speech Language Pathology Referred by: Dr Rogers Referral Type: Clinical Swallow Evaluation Reason for Referral/HPI: Paco Dupree is a 73 yo male adm to [facility] 01/07 with hypertensive emergency, elevated troponin, and recurrent right pleural effusion (was pending outpatient thoracentesis 01/08). PMH is significant for COPD, CHF, psoriatic arthritis on immunosuppression, impaired renal function. HYDRAULIC JACK ADJUSTER IMPRESSIONS & RECOMMENDATIONS: Paco was seen for a non-instrumental swallow evaluation, which included limited PO trials of 3 sips of water, 2 bites of jell-o due to his nausea and very low appetite/limited intake, which has been mild and ongoing for years but notably more acute x3-4 days. He also reports symptoms of food sticking/heaviness in lower esophageal/stomach region, belching and 'air bubble sensation' with drinks, chronic vocal hoarseness, and reported sensation of post nasal drip. He demonstrates 2-3 swallows per sip/bite, though no overt s/s aspiration- no coughing, throat clearing, change in vocal quality. Oral mechanism examination and oral phase of the swallow appears WNL. While pharyngeal dysphagia cannot be ruled out, suspect primary esophageal/GI dysfunction. Consider barium swallow study (this was ordered recently as outpatient) to rule out esophageal dysfunction which may be contributing to recurrent R pleural effusion as well as acute GI/swallowing symptoms. HYDRAULIC JACK ADJUSTER to continue to follow and review barium swallow study results to determine if additional HYDRAULIC JACK ADJUSTER workup indicated. FURTHER HYDRAULIC JACK ADJUSTER SERVICES: Patient to be followed while on unit - ongoing HYDRAULIC JACK ADJUSTER services is pending results of Ba swallow Diet Recommendations: SOLIDS: 7-Regular Solids LIQUIDS: 0-Thin Liquids MEDICATIONS: Whole with 0-Thin Liquids RISK MANAGEMENT: HOB upright as tolerated; upright for all PO intake. Oral hygiene BID/2x per day Level of Assistance/Supervision: Independent Posture/Positioning Needs: Maintain upright position at least 30 minutes after meals Avoid meals/snacks 2-3 hours prior to reclining/sleeping Sleep with head of bed elevated to reduce likelihood of nocturnal reflux SUBJECTIVE: Patient received alert/awake, agreeable to evaluation Pain Reported? None Baseline Swallow Function: See above - loss of appetite and discomfort with eating x several years. Acute nausea with very limited intake x3-4 days. Reports 'air bubble'/belching discomfort with drinks. Sometimes feels liquids go down the wrong way. Denies heartburn/reflux- was experiencing prior to Pantoprazole which started March per chart 20lb weight loss in 2 years due to low appetite and mild nausea PO Trials Assessed: IDDSI 0 Thin Liquids (water via cup) IDDSI 4 Puree Solid (Jell-0) Oral Mechanism Examination: Dentition is WFL. Oral mucosa is WFL. Cranial Nerve Assessment: CN V ? Trigeminal Facial Sensation WNL Jaw Strength/ROM WNL ?WNL CN VII- Facial WNL labial ROM, strength, coordination. WNL lingual sensation WNL CN IX ? Glossopharyngeal WNL palatal elevation with phonation. No evidence of nasal emissions WNL CN X ? Vagus WNL Vocal quality and volume. Strong/sharp volitional cough WNL CX XII ? Hypoglossal WNL lingual ROM, strength, coordination WNL Oral Phase Findings: WFL Pharyngeal Phase Findings: Question of reduced hyolaryngeal elevation/excursion 2-3 swallows per bite/sip No overt coughing/throat clear/change of voice No stasis reported ? ASSESSMENT: Further HYDRAULIC JACK ADJUSTER monitoring indicated- Patient to be followed while on unit. Recommendation at Discharge: to be determined Recommended Procedures: Consider barium swallow study Education Provided to: Nursing, Patient Topics Addressed: HYDRAULIC JACK ADJUSTER findings, recommendations, reflux precautions PLAN: Frequency: 1-2x/week for 1-2 weeks Goals: Joint Yarner Goals: Patient will remain free from aspiration-related illness, malnutrition, and dehydration. Short Term Goals: Patient will tolerate regular Diet and Thin liquids without overt s/s aspiration across 2/2 visits. HYDRAULIC JACK ADJUSTER CPT Code: 13086 Clinical Swallowing Evaluation TOTAL TIME: 25 Minutes ([id number])
[2024-01-09] MEDS: Barium Sulfate 60% W/V 355 ML BTL 75 ML PO (10:13)
[2024-01-09] MEDS: Barium Sulfate 98% W/W 140 ML BTL 110 ML PO (10:14)
[2024-01-09] MEDS: Barium Sulfate 700 MG TAB PO (10:15)
[2024-01-09] MEDS: Simethicone/Sod Bicarb/Cit Ac, 4 gram PACKET 1 PACKET PO (10:16)
--- NOTE | 2024-01-09 10:20 | DI.RAD_ITS ---
Exam(s) RF BARIUM SWALLOW EXAM: RF BARIUM SWALLOW CLINICAL HISTORY: dysphagia TECHNIQUE: 2D and realtime digital imaging was performed. CONTRAST MATERIAL: Thick and thin barium and barium tablet were administered. COMPARISON: CR,XR XR CHEST 2V PA LATERAL from 01/08/2024 FINDINGS: The PA and lateral chest films show normal heart size. Stable right pleural effusion. The lateral regulation supervisor view of the neck is unremarkable. Esophagus: The patient swallowed barium without difficulty. Noevidence for mucosal erosions. Nofol d thickening. No mass is visible. Nostricture. Motility: There is a normal primary stripping wave. No tertiary contractions were noted. There is no hiatal hernia. Nogastroesophageal reflux was observed during the exam. IMPRESSION: Normal barium swallow. Stable size of right pleural effusion. RADIATION DOSE DELIVERED: orin Dickey=14.5 mGy
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
--- NOTE | 2024-01-09 12:03 | PHA.REVIEW2 ---
Pharmacy Admission Review Admission Clinical Review Admission Pharmacy Review: Advance care planning (Acute) Elevated troponin (Acute) Hypertensive emergency (Acute) Pleural effusion, right (Acute) chlorthalidone Allergy (Severe, Verified 01/08/24 14:18) facial swelling dexamethasone Allergy (Intermediate, Verified 01/08/24 14:18) severe facial swelling lisinopril Allergy (Intermediate, Verified 01/08/24 14:18) Facial swelling losartan Adverse Reaction (Intermediate, Verified 01/08/24 14:18) MUSCLE WEAKNESS amlodipine Adverse Reaction (Mild, Verified 01/08/24 14:18) FUNNY FEELING Resuscitation Status Full Code Height 5 ft 8 in Weight 70 kg Pharmacy Admission Review Renal Dosing Renal Dosing: BUN 20 mg/dL (7-18) H 01/09/24 06:00 Creatinine 1.6 mg/dL (0.70-1.30) H 01/09/24 06:00 Medications needing adjustments: Intervened (CrCl 40 mL/min, SCr decreased from 1.9) List of meds needing interventions: Changed enoxaparin from 30mg to 40mg daily due to CrCl > 30 Anticoagulation Anticoagulation: Hgb 13.5 g/dL (13.5-17.5) 01/09/24 06:00 Hct 43.3 % (40.0-50.0) 01/09/24 06:00 Plt Count 241 10^3/uL (130-400) 01/09/24 06:00 INR 1.1 (0.9-1.1) 01/08/24 14:30 Creatinine 1.6 mg/dL (0.70-1.30) H 01/09/24 06:00 DVT Prophylaxis: Intervened (renal dose adjustment, see above) Medications: Enoxaparin (40mg daily) Relevant Labs Relevant Labs: Sodium 142 mmol/L (136-145) 01/09/24 06:00 Potassium 4.2 mmol/L (3.5-5.1) 01/09/24 06:00 Chloride 106 mmol/L (98-107) 01/09/24 06:00 Magnesium 1.9 mg/dL (1.8-2.4) 01/08/24 14:30 Electrolytes, C-Reactive P, ESR: Reviewed Cardiac Review Cardiac Review: Troponin I 63 ng/L (< or =60) H* 01/09/24 06:00 NT-Pro-B Natriuret Pep 42417 pg/mL (<300) H 01/08/24 14:30 Blood Pressure 140/80 1120 Blood Pressure 151/101 1010 Blood Pressure 151/101 0902 Blood Pressure 157/111 0801 Blood Pressure 150/100 0701 Blood Pressure 148/85 0602 Blood Pressure 130/85 0501 Blood Pressure 135/91 0401 Blood Pressure 136/84 0301 Blood Pressure 135/79 0201 Blood Pressure 121/72 0101 BP, HR, EF%: Reviewed (HR 79, troponin decreased from 87) QTc Review QTc: Reviewed (512 from 01/08/24) IV to PO Switch IV Medications: Reviewed (furosemide and hydralazine) Home Meds Home Med List reviewed: Intervened Relevent Home Meds Not ordered & why?: Vitamin D3 and Enbrel (once a week) Bosutinib put in as patients own order. Per nursing, is bringing in the medication today. Current Meds Current Medication Order Review: Intervened Comments: Changed timing of pantoprazole from 0830 to 0730 per pharmacy protocol
--- NOTE | 2024-01-09 12:12 | PUCC_ITS ---
General Date of Service Date of service: 01/09/24 Time of Service: 12:12 Reason for Admission to ICU: Pt w/ hx/o ischemic CM, chronic pleural effusion of unclear etiology, CML , HTN admitted 01/07 w/ HTN urgency, worsening r sided rib pain, elevated troponin leak. Never required anti hypertensive drip only hydralazine IVP. BP better controlled this am. Has lost about 35lbs over the course of this past year Assessment and Plan Assessment and plan (1) Hypertensive urgency: Status: Acute Assessment and plan: Improved w/ Hydralazine IVP. Furhter manaagement pe cardiology but agree w/ possible consideration of Entresto. (2) Elevated troponin: Status: Acute Assessment and plan: Demand ischemia w/ no ecg changes (3) Pleural effusion, right: Status: Acute Assessment and plan: Unclear etiology. Pleural effusion form 11/24 had 745 WBC, total protein 3.8, LDH 93 and by Light's criteria a transudate. It could be 2/2 to his atypical given it is unilateral and his EF still relatively preserved at 55%. Normal one would present as such w/ a decreased EF below 40%. Agree w/ therapeutic thora and resend for labs including flow cytometry given his hx of CML. Per discussion Dr Cuello will drain. Please call if any assistance needed. If results still unequivocal w/ his hx/o significant weight loss recommend evaluation w/ thoracic surgery for pleuroscopy and biopsy. F/ui w/ Pulm office after DC. (4) Chronic myeloid leukemia: Status: Chronic Assessment and plan: -Continue home busutinib (5) Essential hypertension: Status: Chronic Assessment and plan: Continue carvedilol and nifedipine XL along with diuretics. (6) Coronary artery disease: Status: Chronic Assessment and plan: -History of left heart catheterization in 2017 with un-stentable mid LAD -Continue home aspirin and clopidogrel Qualifiers: Coronary Disease-Associated Artery/Lesion type: [place] artery [place] vs. transplanted heart: [place] heart Associated angina: unspecified whether angina present Qualified Code(s): I25.10 - Atherosclerotic heart disease of [place] coronary artery without angina pectoris (7) Cardiomyopathy, ischemic: Status: Chronic Assessment and plan: echocardiogram and October 2023 which showed anterior apical, anterior septal, and apical segment akinesis,but an EF of 50 to 55% Recommendations I&O: Intake & Output 01/06/24 01/07/24 01/08/24 01/09/24 23:59 23:59 23:59 23:59 Intake Total 600 / 600 250 / 250 Output Total 300 / 300 575 / 575 Balance 300 / 300 -325 / -325 Weight 70 kg Date of Last Bowel Movement: 01/09/24 Lines: peripherals Prophylaxis: DVT prophy PPI Code Status: Resuscitation Status Full Code Subjective Critical and life-threatening events over the past 24 hours: BP better controlled this am Due for thoracentesis Exam Narrative Exam Narrative: AOx3 NAD Neck supple no JVD Lungs decreased breath sound R base, clear otherwise CV RRR S1S2 Ext no edema Most Recent VS/Results Last Vital Signs Temp 36.6 C 01/09/24 04:25 Pulse 79 01/09/24 11:20 Resp 18 01/09/24 11:20 BP 140/80 01/09/24 11:20 Pulse Ox 96 01/09/24 11:20 Laboratory Results - last 24 hr 01/08/24 01/08/24 01/08/24 14:05 14:30 16:13 WBC 6.91 RBC 5.42 Hgb 14.4 Hct 45.3 MCV 84 MCH 26.6 L MCHC 31.8 L RDW 20.2 H Plt Count 301 MPV 9.9 Immature Gran % 0.3 Neutrophils % 73.1 Lymphocytes % 13.5 Monocytes % 11.0 Eosinophils % 1.4 Basophils % 0.7 Nucleated RBC % 0.0 Absolute Neutrophils 5.05 Absolute Lymphocytes 0.93 L Absolute Monocytes 0.76 Absolute Eosinophils 0.10 Absolute Basophils 0.05 RBC Morphology See Below Anisocytosis 1+ PT 11.0 INR 1.1 APTT 28.8 Sodium Cancelled 139 Potassium Cancelled 4.0 Chloride Cancelled 104 Carbon Dioxide Cancelled 24.6 Anion Gap Cancelled 10.4 BUN Cancelled 18 Creatinine Cancelled 1.9 H Est GFR (CKD-EPI 2020) Cancelled 36.79 Glucose Cancelled 107 H Calcium Cancelled 9.0 Magnesium Cancelled 1.9 Total Bilirubin Cancelled 0.80 AST Cancelled 29 ALT Cancelled 30 Alkaline Phosphatase Cancelled 104 Creatine Kinase 204 Troponin I 72 H* NT-Pro-B Natriuret Pep 02132 H Total Protein Cancelled 7.9 Albumin Cancelled 3.8 Lipase 24 Urine Color Dark Yellow Urine Clarity Clear Urine pH 6.0 Ur Specific [place] 1.025 Urine Protein >=300 H Urine Ketones Negative Urine Blood Moderate H Urine Nitrite Negative Urine Bilirubin Moderate H Urine Urobilinogen 1.0 H Ur Leukocyte Esterase Negative Urine RBC 5-10 H Urine WBC 0-2 Ur Epithelial Cells Rare Urine Crystals Negative Urine Bacteria Negative Urine Mucus Heavy Ur Culture Indicated? No Urine Glucose Negative 01/08/24 01/08/24 01/09/24 16:20 21:40 06:00 WBC 6.97 RBC 5.09 Hgb 13.5 Hct 43.3 MCV 85 MCH 26.5 L MCHC 31.2 L RDW 19.9 H Plt Count 241 MPV 9.8 Immature Gran % Neutrophils % Lymphocytes % Monocytes % Eosinophils % Basophils % Nucleated RBC % Absolute Neutrophils Absolute Lymphocytes Absolute Monocytes Absolute Eosinophils Absolute Basophils RBC Morphology Anisocytosis PT INR APTT Sodium 142 Potassium 4.2 Chloride 106 Carbon Dioxide 25.7 Anion Gap 10.3 BUN 20 H Creatinine 1.6 H Est GFR (CKD-EPI 2020) 45.21 Glucose 96 Calcium 8.8 Magnesium Total Bilirubin AST ALT Alkaline Phosphatase Creatine Kinase Troponin I 87 H* 87 H* 63 H* NT-Pro-B Natriuret Pep Total Protein Albumin Lipase Urine Color Urine Clarity Urine pH Ur Specific [place] Urine Protein Urine Ketones Urine Blood Urine Nitrite Urine Bilirubin Urine Urobilinogen Ur Leukocyte Esterase Urine RBC Urine WBC Ur Epithelial Cells Urine Crystals Urine Bacteria Urine Mucus Ur Culture Indicated? Urine Glucose Time spent with patient Time spent in Critical Care: 35 Time spent in Critical care included: Coordination of care, Chart review, Documenting critically ill care and Discussing critically ill care with other medical staff Note: 35
[2024-01-09] MEDS: Furosemide 20 MG/2 ML VIAL IVP ×2 (12:21→16:06)
[2024-01-09] MEDS: Spironolactone 50 MG TAB 25 MG PO (12:22)
--- NOTE | 2024-01-09 12:54 | SCONE_ITS ---
Date of service: 01/09/24 Time of Service: 12:54 Assessment and Plan Assessment and plan (1) Anxiety: Status: Chronic (2) Hypertensive emergency: Status: Suspected (3) Essential hypertension: Status: Chronic (4) Cardiomyopathy, ischemic: Status: Chronic Assessment and plan: 11/03 Conclusion Normal left ventricular wall thickness and chamber size. Ejection fraction is 50 to 55%. There is akinesis of the anterior apical, anteroseptal and apical segments Normal right ventricular size and function Both atria are moderately enlarged Aortic valve is sclerotic and trileaflet without stenosis or regurgitation Normal mitral valve with trace regurgitation Normal tricuspid valve with mild regurgitation (5) CHF (congestive heart failure): Status: Chronic (6) Pulmonary hypertension: Status: Acute (7) Tricuspid regurgitation: Status: Chronic (8) Coronary artery disease: Status: Chronic Qualifiers: Associated angina: unspecified whether angina present Coronary Disease- Associated Artery/Lesion type: [place] artery [place] vs. transplanted heart: n ative heart Qualified Code(s): I25.10 - Atherosclerotic heart disease of [place] coronary artery without angina pectoris (9) Elevated troponin: Status: Acute (10) Stable angina: Status: Chronic (11) Hyperlipidemia: Status: Chronic (12) Hypothyroid: Status: Chronic (13) Gastric ulcer: Status: Acute (14) Diverticulosis of colon without diverticulitis: Status: Chronic (15) Hiatal hernia: Status: Chronic (16) Iron deficiency anemia: Status: Acute Assessment and plan: Hematology feels this is from chronic kidney disease. (17) Chronic myeloid leukemia: Status: Chronic Assessment and plan: Refer to Dr. Crisostomo's visit 12/04. She feels he is well-controlled on the bosutnib. The pleural effusion is not from his this medication. Iron/TIBC/ferritin/copper/SPEP were all normal. These were [place] [facility] [place] Erythropoietin was 20.8 (18) Gout: Status: Chronic (19) Shoulder pain: Status: Acute (20) TIA (transient ischemic attack): Status: Acute (21) COPD (chronic obstructive pulmonary disease): Status: Chronic (22) Pleural effusion, right: Status: Acute Assessment and plan: Attributed to chronic renal disease -Hold blood thinners for thoracentesis Plan thoracentesis for symptom control. Fluid will be sent for routine studies and cytology as well as flow cytometry. Patient does have a consult with nephrology in [facility] on 01/15. He may require VATS for pleural biopsy and pleurodesis. Will review with anesthesia Awaiting fluid results. (23) Nocturnal hypoxia: Status: Acute (24) Smoker: (25) Chronic myeloid leukemia: Assessment and plan: Again I did review Dr. Hairston notes. She does not feel that the CML for the medication being used to treat it is in any way causing the recurrent right pleural effusion. .dragon 20 mins spent in direct pt care and 75 in non face to face time History of Present Illness Narrative: lg right pleural effussion I did review his notes from hematology and reviewed the case with Dr. Cuello. His last echo at showed EF of 50 to 55% and has been stable this has not thought to be the etiology of his pleural effusion. Hematology did not feel that his CML was the cause of the effusion nor that it was caused by bosutnib. He has been referred to nephrology at and has an appointment on 01/15. He has also been having some chronic anemia which is also felt to be due to renal disease Plavix has been held as of 01/07. Today patient is still feeling short of breath. He has a dry cough. Does not he does not have a productive cough. He has no fever or chills. He is not having any chest pain or shortness of breath. He did not take his blood thinners today. 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 01/08/2024 FINDINGS: The PA and lateral chest films show normal heart size. Stable right pleural effusion. The lateral alpaca farmer view of the neck is unremarkable. Esophagus: The patient swallowed barium without difficulty. Noevidence for mucosal erosions. Nofold thickening. No mass is visible. Nostricture. Motility: There is a normal primary stripping wave. No tertiary contractions were noted. There is no hiatal hernia. Nogastroesophageal reflux was observed during the exam. IMPRESSION: Normal barium swallow. Stable size of right pleural effusion. Consults Consult date: 01/09/24 Review of Systems All systems reviewed & are unremarkable except as noted in HPI and below PFSH All Active Problems (Updated 01/10/24 @ 11:50 by Alonso Rogers MD) Atrial fibrillation (Chronic) Hypertensive urgency (Acute) Advance care planning (Acute) Elevated troponin (Acute) Pleural effusion (Acute) Dysphagia (Acute) Ground glass opacity present on imaging of lung (Acute) Shortness of breath (Acute) Pleural effusion, right (Acute) Serum creatinine raised (Acute) Nocturnal hypoxia (Acute) COPD (chronic obstructive pulmonary disease) (Chronic) Hemoptysis (Acute) Ascites (Acute) Iron deficiency anemia (Acute) Early satiety (Acute) Weight loss (Acute) 20 lbs in 2 years B12 deficiency (Acute) Pulmonary hypertension (Acute) Cervical radicular pain (Acute) Shoulder pain (Acute) TIA (transient ischemic attack) (Acute) Pleural effusion (Acute) Palpitations (Acute) Coronary artery disease (Chronic) Sensorineural hearing loss of both ears (Acute) Cerumen impaction (Acute) CHF (congestive heart failure) (Chronic) Gastric ulcer (Acute 05/12/80) Pain in thumb joint with movement (Acute 01/04/13) Hypothyroid (Chronic) Vitamin D deficiency disease (Chronic) 06/22: D-26; D2-4.4; D3-22; [facility] [place] Tricuspid regurgitation (Chronic 03/14/14) moderate Stable angina (Chronic 07/15/16) [facility] [place] Psoriatic arthritis (Chronic 02/03/15) Psoriasis (Chronic) a. arthralgias b. 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 Prostatism (Chronic) Low back pain with right-sided sciatica (Chronic 05/12/03) L3-4 disc herniation/DDD; B/L foraminal l4-5, L5-S1; Lumbar radiculopathy 2002 Surgery 02/24 Impaired renal function disorder (Chronic 11/13/13) cr2.5 Hyperlipidemia (Chronic) 06/22: C-265; H-33; L-166; T-331; [facility] [place] Hiatal hernia (Chronic 05/12/05) per EGD 07/19 Gout (Chronic 12/17/13) renal impairment, but not in range at 200mg daily - increased to 300mg daily Essential hypertension (Chronic 04/04/13) Diverticulosis of colon without diverticulitis (Chronic) 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) Cardiomyopathy, ischemic (Chronic 07/15/16) [facility] [place] EF 35% BY 07/14/16 STRESS MPI Anxiety (Chronic) Actinic keratosis (Chronic 02/02/16) Pronation deformity of foot (Chronic) Personal history of colonic polyps (Chronic) Medical History S/P abdominal paracentesis (~11/2023) Calculus of gallbladder with chronic cholecystitis without obstruction (01/06/17) Hypokalemia (01/04/13) Kidney stone Smoker Superficial injury of forearm without infection (05/12/94) Urinary tract infectious disease (05/12/94) Kidney stone Smoker chews tobacco Gastric ulcer 05/12/80 Urinary tract infectious disease 05/12/94 Superficial injury of right forearm 05/12/94 nail gun injury Pain in thumb joint with movement 01/04/13 Hypokalemia 01/04/13 Calculus of gallbladder with chronic cholecystitis without obstruction 01/06/17 Abnormal thyroid blood test (08/10/16) Hypokalemia HTN (hypertension) Chronic myeloid leukemia Impaired renal function Ischemic cardiomyopathy ST elevation myocardial infarction (STEMI) involving left anterior descending (LAD) coronary artery in recovery phase Tricuspid regurgitation ASCVD (arteriosclerotic cardiovascular disease) Arthritis with psoriasis Gout Diverticulosis Surgical History History of thoracentesis (~12/2023) History of spinal surgery Status post vasectomy History of back surgery exc. of herniated intervertebral disc Other specified postprocedural states h/o back surgery exc. of herniated intervertebral disc S/P vasectomy Vasectomy PTC EGD - MAC Colonoscopy - MAC (06/18/16) Cholecystectomy (02/02/17) BACK SURGERY EXC HERNIA INTERVERTEBRAL DISC Family History Mother , age 39 Ulcerative colitis Father , age 56 Stroke Sister No problems noted. Social History Smoking/Tobacco Use Status: Former Tobacco Use tobacco type: cigarettes Quit Date: 06/13/72 Tobacco: How many years used: 3 Second Hand Exposure: Yes Smoking risk assessment performed?: Yes Alcohol Intake: current Alcohol Intake frequency: a few times a month Alcohol type: beer and hard liquor Substance use type: does not use Caregiver/Support person: No Household members: spouse Housing: house Number of Children: 2 Communication Needs: Hard of Hearing Do you need help understanding health information?: Never Pets and animals: Yes Pets and animals: cat(s) and dog(s) Sexually active: No Do you think of yourself as: straight/heterosexual Current gender identity: male What is your relationship status?: How often do you talk on the phone with friends or family?: once per week How often do you get together with friends or relatives?: once per week How often do you attend evangelical or muslim services?: decline to answer Do you belong to any clubs or organized social groups?: no Panel score (0-1 are the most socially isolated patients): 1 What type of physical activity do you participate in: other Details: Gardening,mwing lawn Golfing Duration: 15-30 minutes/day Frequency: 1-2 times per week Charline/Religious: No preference Special charline needs: No Seatbelt use: always Drive intox or ride w/intox scoop driver: No Do you feel safe at home: Yes Do you feel safe in your relationship?: Yes Exam Narrative Exam Narrative: PHYSICAL EXAM GENERAL APPEARANCE: Alert, healthy appearance, oriented, x 3,? in no acute distress HYDRATION: Well hydrated HEAD, EYES, EARS, NECK, THROAT: Head is normocephalic, pupils equal, round, reactive to light and accommodation, ocular movement intact, sclera clear and no jaundice. ?Dentition intact. LUNGS: normal respiration/normal chest excursion. ?Left side is clear. Decreased breath sounds on the right. ?HEART: Rate controlled A-fib ultrasound was used to sandra the chest ABDOMEN: soft and non-tender to palpation.? Results Last Vital Signs Temp 36.6 C 01/09/24 04:25 Pulse 77 01/09/24 12:01 Resp 18 01/09/24 12:01 BP 142/90 H 01/09/24 12:01 Pulse Ox 94 01/09/24 12:01 Labs 01/09/24 06:00 01/10/24 05:40 Labs: Laboratory Results - last 24 hr 01/08/24 01/08/24 01/08/24 14:05 14:30 16:13 WBC 6.91 RBC 5.42 Hgb 14.4 Hct 45.3 MCV 84 MCH 26.6 L MCHC 31.8 L RDW 20.2 H Plt Count 301 MPV 9.9 Immature Gran % 0.3 Neutrophils % 73.1 Lymphocytes % 13.5 Monocytes % 11.0 Eosinophils % 1.4 Basophils % 0.7 Nucleated RBC % 0.0 Absolute Neutrophils 5.05 Absolute Lymphocytes 0.93 L Absolute Monocytes 0.76 Absolute Eosinophils 0.10 Absolute Basophils 0.05 RBC Morphology See Below Anisocytosis 1+ PT 11.0 INR 1.1 APTT 28.8 Sodium Cancelled 139 Potassium Cancelled 4.0 Chloride Cancelled 104 Carbon Dioxide Cancelled 24.6 Anion Gap Cancelled 10.4 BUN Cancelled 18 Creatinine Cancelled 1.9 H Est GFR (CKD-EPI 2020) Cancelled 36.79 Glucose Cancelled 107 H Calcium Cancelled 9.0 Magnesium Cancelled 1.9 Total Bilirubin Cancelled 0.80 AST Cancelled 29 ALT Cancelled 30 Alkaline Phosphatase Cancelled 104 Creatine Kinase 204 Troponin I 72 H* NT-Pro-B Natriuret Pep 21100 H Total Protein Cancelled 7.9 Albumin Cancelled 3.8 Lipase 24 Urine Color Dark Yellow Urine Clarity Clear Urine pH 6.0 Ur Specific [place] 1.025 Urine Protein >=300 H Urine Ketones Negative Urine Blood Moderate H Urine Nitrite Negative Urine Bilirubin Moderate H Urine Urobilinogen 1.0 H Ur Leukocyte Esterase Negative Urine RBC 5-10 H Urine WBC 0-2 Ur Epithelial Cells Rare Urine Crystals Negative Urine Bacteria Negative Urine Mucus Heavy Ur Culture Indicated? No Urine Glucose Negative 01/08/24 01/08/24 01/09/24 16:20 21:40 06:00 WBC 6.97 RBC 5.09 Hgb 13.5 Hct 43.3 MCV 85 MCH 26.5 L MCHC 31.2 L RDW 19.9 H Plt Count 241 MPV 9.8 Immature Gran % Neutrophils % Lymphocytes % Monocytes % Eosinophils % Basophils % Nucleated RBC % Absolute Neutrophils Absolute Lymphocytes Absolute Monocytes Absolute Eosinophils Absolute Basophils RBC Morphology Anisocytosis PT INR APTT Sodium 142 Potassium 4.2 Chloride 106 Carbon Dioxide 25.7 Anion Gap 10.3 BUN 20 H Creatinine 1.6 H Est GFR (CKD-EPI 2020) 45.21 Glucose 96 Calcium 8.8 Magnesium Total Bilirubin AST ALT Alkaline Phosphatase Creatine Kinase Troponin I 87 H* 87 H* 63 H* NT-Pro-B Natriuret Pep Total Protein Albumin Lipase Urine Color Urine Clarity Urine pH Ur Specific [place] Urine Protein Urine Ketones Urine Blood Urine Nitrite Urine Bilirubin Urine Urobilinogen Ur Leukocyte Esterase Urine RBC Urine WBC Ur Epithelial Cells Urine Crystals Urine Bacteria Urine Mucus Ur Culture Indicated? Urine Glucose Anemia profile 2 Hgb 13.5 g/dL (13.5-17.5) 01/09/24 Hct 43.3 % (40.0-50.0) 01/09/24 MCV 85 fL (80-95) 01/09/24 RDW 19.9 % (11.8-14.1) H 01/09/24 Iron 52 ug/dL (65-175) L 01/05/24 Ferritin 154 ng/mL (26-388) 01/05/24 TIBC 440 ug/dL (250-450) 11/30/23 Transferrin % Sat 8 % (20-55) L 11/30/23 Vitamin B12 771 pg/mL (193-986) 01/05/24 Folate 10.7 ng/mL (8.6-20.0) 11/30/23 Basic Metabolic 2 Sodium 145 mmol/L (136-145) 01/10/24 Potassium 3.7 mmol/L (3.5-5.1) 01/10/24 Chloride 107 mmol/L (98-107) 01/10/24 Carbon Dioxide 27.0 mmol/L (21.0-32.0) 01/10/24 BUN 27 mg/dL (7-18) H 01/10/24 Creatinine 2.0 mg/dL (0.70-1.30) H 01/10/24 Estimated GFR/1.73 m2 35.12 (mL/min/1.73m2) 02/04/22 Glucose 85 mg/dL (74-106) 01/10/24 CBC 2 White Blood Count 6.97 10^3/uL (4.4-10.8) 01/09/24 Red Blood Count 5.09 10^6/uL (4.36-5.78) 01/09/24 Hemoglobin 13.5 g/dL (13.5-17.5) 01/09/24 Hematocrit 43.3 % (40.0-50.0) 01/09/24 Mean Corpuscular Volume 85 fL (80-95) 01/09/24 Mean Corpuscular Hemoglobin 26.5 pg (27.0-33.0) L 01/09/24 Mean Corpuscular Hemoglobin Concent 31.2 % (32.0-36.0) L Red Cell Distribution Width 19.9 % (11.8-14.1) H 01/09/24 Platelet Count 241 10^3/uL (130-400) 01/09/24 Mean Platelet Volume 9.8 fL (8.0-11.0) 01/09/24 Neutrophils % 73.1 % 01/08/24 Lymphocytes % 13.5 % 01/08/24 Monocytes % 11.0 % 01/08/24 Eosinophils % 1.4 % 01/08/24 Basophils % 0.7 % 01/08/24 Immature Granulocytes % 0.3 % 01/08/24 Comprehensive Metabolic Panel 2 Sodium 145 mmol/L (136-145) 01/10/24 05:40 Potassium 3.7 mmol/L (3.5-5.1) 01/10/24 05:40 Chloride 107 mmol/L (98-107) 01/10/24 05:40 Carbon Dioxide 27.0 mmol/L (21.0-32.0) 01/10/24 05:40 BUN 27 mg/dL (7-18) H 01/10/24 05:40 Creatinine 2.0 mg/dL (0.70-1.30) H 01/10/24 05:40 Estimated GFR/1.73 m2 35.12 (mL/min/1.73m2) 02/04/22 09:25 Glucose 85 mg/dL (74-106) 01/10/24 05:40 Calcium 8.5 mg/dL (8.5-10.1) 01/10/24 05:40 Conjugated Bilirubin 0.14 mg/dL (0.00-0.20) 10/30/18 08:25 Total Bilirubin 0.80 mg/dL (0.2-1.0) 01/08/24 14:30 ALT 30 U/L (16-63) 01/08/24 14:30 AST 29 U/L (15-37) 01/08/24 14:30 Alkaline Phosphatase 104 U/L (46-116) 01/08/24 14:30 Total Protein 7.1 g/dL (6.4-8.2) 01/10/24 05:40 Albumin 3.4 g/dL (3.4-5.0) 01/10/24 05:40 Diabetes results 2 Glucose 85 mg/dL (74-106) 01/10/24 Total Cholesterol 124 mg/dL (<200) 10/25/23 LDL Cholesterol, Calc 59 mg/dL (<100) 10/25/23 LDL Cholesterol Direct 88 mg/dL (<100) 10/30/18 HDL Cholesterol 42 mg/dL (40-60) 10/25/23 Triglycerides 118 mg/dL (<150) 10/25/23 BUN 27 mg/dL (7-18) H 01/10/24 Creatinine 2.0 mg/dL (0.70-1.30) H 01/10/24 Estimated GFR/1.73 m2 35.12 (mL/min/1.73m2) 02/04/22 Est GFR (CKD-EPI 2020) 34.59 (mL/min/1.73m2) 01/10/24 Sodium 145 mmol/L (136-145) 01/10/24 Potassium 3.7 mmol/L (3.5-5.1) 01/10/24 Chloride 107 mmol/L (98-107) 01/10/24 Carbon Dioxide 27.0 mmol/L (21.0-32.0) 01/10/24 Calcium 8.5 mg/dL (8.5-10.1) 01/10/24 AST 29 U/L (15-37) 01/08/24 ALT 30 U/L (16-63) 01/08/24 Total Protein 7.1 g/dL (6.4-8.2) 01/10/24 Albumin 3.4 g/dL (3.4-5.0) 01/10/24 TSH 1.81 uIU/mL (0.36-3.74) 10/25/23 Vitamin B12 771 pg/mL (193-986) 01/05/24 Lipid profile 2 Total Cholesterol 124 mg/dL (<200) 10/25/23 HDL Cholesterol 42 mg/dL (40-60) 10/25/23 LDL Cholesterol, Calc 59 mg/dL (<100) 10/25/23 LDL Cholesterol Direct 88 mg/dL (<100) 10/30/18 Triglycerides 118 mg/dL (<150) 10/25/23 Stool tests ([facility]JP) 2 No Data to Display
--- NOTE | 2024-01-09 17:45 | RT.EKG_ITS ---
APPROVED REPORT Exam: Resting ECG Reason for Exam: VT Patient Location: I HR:85 bpm ECG Measurements Heart Rate 85 [place]IS [place] [id number] P [id number] QRSd 116 QRS -28 QT 400 T 128 QTc 477 Conclusion Atrial fibrillation...V-rate 71-106, irreg A-activity Nonspecific intraventricular conduction delay...QRSd >115mS, not LBBB/RBBB Inferior infarct, old...Q >35mS, II III aVF Anterior infarct, old...Q >40mS, abnormal ST-T, V2-V5 Nonspecific T abnormalities, lateral leads...T <-0.10mV, I aVL V5 V6
[2024-01-09 18:30] LABS: Anion Gap 11.4 mmol/L (3-11); BUN 27 mg/dL (7-18); CO2 25.6 mmol/L (21.0-32.0); CREATININE 2.1 mg/dL (0.70-1.30); Calcium 8.8 mg/dL (8.5-10.1); Chloride 106 mmol/L (98-107); Estimated GFR 32.62 (mL/min/1.73m2); Glucose 124 mg/dL (74-106); Magnesium 1.9 mg/dL (1.8-2.4); Potassium 4.2 mmol/L (3.5-5.1); Sodium 143 mmol/L (136-145); Troponin I 51 ng/L (< or =60)
[2024-01-09 21:55] LABS: Troponin I 51 ng/L (< or =60)
[2024-01-10] VITALS (12 sets, daily range): BP systolic 110–172; BP diastolic 67–111; PULSE 46–85; RESP 17–26; TEMP 37–37.4; O2SAT 96–99
[2024-01-10] MEDS: Levothyroxine 25 MCG TAB 50 MCG PO (06:12)
[2024-01-10 07:31] LABS: BUN 27 mg/dL (7-18); Calcium 8.5 mg/dL (8.5-10.1); Chloride 107 mmol/L (98-107); Estimated GFR 34.59 (mL/min/1.73m2); Glucose 85 mg/dL (74-106); Potassium 3.7 mmol/L (3.5-5.1); Sodium 145 mmol/L (136-145)
--- NOTE | 2024-01-10 08:30 | W.CARDCONSUL ---
Date of service: 01/10/24 Time of Service: 08:30 Assessment and Plan Assessment and plan (1) Atrial fibrillation: Status: Chronic Assessment and plan: Patient has atrial fibrillation. At some point he should be considered for anticoagulation as he has significant stroke risk. If he starts anticoagulation I would think either baby aspirin or clopidogrel could be discontinued and continue with 1 agent on Qualifiers: Atrial fibrillation type: unspecified Qualified Code(s): I48.91 - Unspecified atrial fibrillation (2) Pleural effusion: Status: Acute Assessment and plan: Evaluation of the fluid has been consistent with a transudate and unfortunately congestive heart failure remains the most likely diagnosis. Await results of thoracentesis today (3) Coronary artery disease: Status: Chronic Assessment and plan: Patient's coronary disease has been stable for several years. He has not had any symptoms concerning for angina. Qualifiers: Coronary Disease-Associated Artery/Lesion type: [place] artery [place] vs. transplanted heart: [place] heart Associated angina: unspecified whether angina present Qualified Code(s): I25.10 - Atherosclerotic heart disease of [place] coronary artery without angina pectoris (4) CHF (congestive heart failure): Status: Chronic Assessment and plan: He has mild LV dysfunction, EF 50 to 55%, unchanged also for a year or 2. He has wall motion abnormalities anterior apically in the distribution of his occluded LAD. Qualifiers: Heart failure type: combined systolic and diastolic Heart failure chronicity: chronic Qualified Code(s): I50.42 - Chronic combined systolic (congestive) and diastolic (congestive) heart failure History of Present Illness History of Present Illness Chief Complaint: Shortness of breath weight loss Narrative: This is a 73-year-old man with a longstanding cardiac history. Includes coronary artery disease with a myocardial infarction in approximately 2017. Cardiac catheterization at that time disclosed a total of occlusion of the mid LAD which could not be angioplastied. Subsequently the patient was treated medically. The last several years he has had an ejection fraction of 50 to 55% with wall motion abnormalities in the anteroapical segments. His last echocardiogram was in October In the spring 2021 he was noted to have a right pleural effusion when [place] for presumed congestive heart failure. The pleural effusion apparently has never resolved. Recently the patient was taken off diuretics, reportedly for low blood pressure and then because of flooding and lack of access to his pharmacy he did not take any of his medications for several days. He presented to the hospital with elevated blood pressure, minimal troponin leak and persistent right pleural effusion. The effusion has been tapped several times, results have been consistent with a transudate. He is scheduled to have another thoracentesis later today Patient's blood pressure in the hospital has improved currently in the vicinity of 150/80. He has atrial fibrillation, rate is controlled. He is not currently anticoagulated and as best I can determine the atrial fibrillation is a new diagnosis. He is on aspirin and Plavix He has CML, followed by oncology, takes bosutinib He is complaining of nausea and epigastric discomfort. He says neither of these complaints are new. He has lost considerable weight over the last year Review of Systems Cardiovascular Cardiovascular: Reports as per HPI, Denies chest pain, Denies leg edema, Denies radiating jaw, neck or arm pain, Denies palpitations and Reports dyspnea on exertion Respiratory Respiratory: Reports dyspnea on exertion Endocrine Endocrine: Denies palpitations PFSH All Active Problems (Updated 01/10/24 @ 08:43 by Ellie Palmer MD) Atrial fibrillation (Chronic) Hypertensive urgency (Acute) Advance care planning (Acute) Elevated troponin (Acute) Pleural effusion (Acute) Hypertensive emergency (Acute) Dysphagia (Acute) Ground glass opacity present on imaging of lung (Acute) Shortness of breath (Acute) Pleural effusion, right (Acute) Serum creatinine raised (Acute) Nocturnal hypoxia (Acute) COPD (chronic obstructive pulmonary disease) (Chronic) Hemoptysis (Acute) Ascites (Acute) Iron deficiency anemia (Acute) Early satiety (Acute) Weight loss (Acute) 20 lbs in 2 years B12 deficiency (Acute) Pulmonary hypertension (Acute) Cervical radicular pain (Acute) Shoulder pain (Acute) TIA (transient ischemic attack) (Acute) Pleural effusion (Acute) Palpitations (Acute) Coronary artery disease (Chronic) Sensorineural hearing loss of both ears (Acute) Cerumen impaction (Acute) CHF (congestive heart failure) (Chronic) Gastric ulcer (Acute 05/12/80) Pain in thumb joint with movement (Acute 01/04/13) Hypothyroid (Chronic) Vitamin D deficiency disease (Chronic) 06/22: D-26; D2-4.4; D3-22; [facility] [place] Tricuspid regurgitation (Chronic 03/14/14) moderate Stable angina (Chronic 07/15/16) [facility] [place] Psoriatic arthritis (Chronic 02/03/15) Psoriasis (Chronic) a. arthralgias b. 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 Prostatism (Chronic) Low back pain with right-sided sciatica (Chronic 05/12/03) L3-4 disc herniation/DDD; B/L foraminal l4-5, L5-S1; Lumbar radiculopathy 2002 Surgery 02/24 Impaired renal function disorder (Chronic 11/13/13) cr2.5 Hyperlipidemia (Chronic) 06/22: C-265; H-33; L-166; T-331; [facility] [place] Hiatal hernia (Chronic 05/12/05) per EGD 07/19 Gout (Chronic 12/17/13) renal impairment, but not in range at 200mg daily - increased to 300mg daily Essential hypertension (Chronic 04/04/13) Diverticulosis of colon without diverticulitis (Chronic) 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) Cardiomyopathy, ischemic (Chronic 07/15/16) [facility] [place] EF 35% BY 07/14/16 STRESS MPI Anxiety (Chronic) Actinic keratosis (Chronic 02/02/16) Pronation deformity of foot (Chronic) Personal history of colonic polyps (Chronic) Medical History S/P abdominal paracentesis (~11/2023) Calculus of gallbladder with chronic cholecystitis without obstruction (01/06/17) Hypokalemia (01/04/13) Kidney stone Smoker Superficial injury of forearm without infection (05/12/94) Urinary tract infectious disease (05/12/94) Kidney stone Smoker chews tobacco Gastric ulcer 05/12/80 Urinary tract infectious disease 05/12/94 Superficial injury of right forearm 05/12/94 nail gun injury Pain in thumb joint with movement 01/04/13 Hypokalemia 01/04/13 Calculus of gallbladder with chronic cholecystitis without obstruction 01/06/17 Abnormal thyroid blood test (08/10/16) Hypokalemia HTN (hypertension) Chronic myeloid leukemia Impaired renal function Ischemic cardiomyopathy ST elevation myocardial infarction (STEMI) involving left anterior descending (LAD) coronary artery in recovery phase Tricuspid regurgitation ASCVD (arteriosclerotic cardiovascular disease) Arthritis with psoriasis Gout Diverticulosis Surgical History History of thoracentesis (~12/2023) History of spinal surgery Status post vasectomy History of back surgery exc. of herniated intervertebral disc Other specified postprocedural states h/o back surgery exc. of herniated intervertebral disc S/P vasectomy Vasectomy PTC EGD - MAC Colonoscopy - MAC (06/18/16) Cholecystectomy (02/02/17) BACK SURGERY EXC HERNIA INTERVERTEBRAL DISC Family History Mother , age 39 Ulcerative colitis Father , age 56 Stroke Sister No problems noted. Social History Smoking/Tobacco Use Status: Former Tobacco Use tobacco type: cigarettes Quit Date: 06/13/72 Tobacco: How many years used: 3 Second Hand Exposure: Yes Smoking risk assessment performed?: Yes Alcohol Intake: current Alcohol Intake frequency: a few times a month Alcohol type: beer and hard liquor Substance use type: does not use Caregiver/Support person: No Household members: spouse Housing: house Number of Children: 2 Communication Needs: Hard of Hearing Do you need help understanding health information?: Never Pets and animals: Yes Pets and animals: cat(s) and dog(s) Sexually active: No Do you think of yourself as: straight/heterosexual Current gender identity: male What is your relationship status?: How often do you talk on the phone with friends or family?: once per week How often do you get together with friends or relatives?: once per week How often do you attend sabianism or baptism services?: decline to answer Do you belong to any clubs or organized social groups?: no Panel score (0-1 are the most socially isolated patients): 1 What type of physical activity do you participate in: other Details: Gardening,mwing lawn Golfing Duration: 15-30 minutes/day Frequency: 1-2 times per week Charline/Tenriism: No preference Special charline needs: No Seatbelt use: always Drive intox or ride w/intox flatbed driver: No Do you feel safe at home: Yes Do you feel safe in your relationship?: Yes Exam Const Other: Chronically ill-appearing no acute distress Neck Other: Neck veins are flat there are no V waves carotid pulsations are normal no bruits Resp Other: Left lung fairly clear, decreased breath sounds on the right Cardio Other: Irregularly irregular rate is controlled Extrem Other: No significant edema Results Last Vital Signs Temp 37.0 C 01/10/24 00:00 Pulse 74 01/10/24 00:02 Resp 19 01/10/24 00:02 BP 132/85 01/10/24 00:02 Pulse Ox 96 01/09/24 16:29 Labs 01/09/24 06:00 01/10/24 05:40 Labs: Laboratory Results - last 24 hr 01/09/24 01/09/24 01/10/24 18:05 21:12 05:40 Sodium 143 145 Potassium 4.2 3.7 Chloride 106 107 Carbon Dioxide 25.6 27.0 Anion Gap 11.4 H 11.0 BUN 27 H 27 H Creatinine 2.1 H 2.0 H Est GFR (CKD-EPI 2020) 32.62 34.59 Glucose 124 H 85 Calcium 8.8 8.5 Magnesium 1.9 Troponin I 51 51
[2024-01-10] MEDS: Pantoprazole 40 MG TABCR PO (09:00)
[2024-01-10] MEDS: Normal Saline Flush 10 ML SYR IVP ×2 (09:01→19:38)
[2024-01-10] MEDS: Rosuvastatin 20 MG TAB PO (09:01)
[2024-01-10] MEDS: Ranolazine 500 MG TABCR PO ×2 (09:01→19:37)
[2024-01-10] MEDS: Carvedilol 6.25 MG TAB PO ×2 (09:01→19:37)
[2024-01-10] MEDS: DULoxetine 30 MG CAP PO (09:01)
[2024-01-10] MEDS: NIFEdipine-CR 30 MG TABCR PO (09:01)
--- NOTE | 2024-01-10 09:40 | PGE_ITS ---
Date of Service Date of service: 01/10/24 Time of Service: 09:40 Assessment and Plan Assessment and plan (1) Hypertensive emergency: Status: Suspected Assessment and plan: was not truly hypertensive emergency i.e. he was not in pulmonary edema, not having cerebral edema or other end organ acute damage from his elevated BP but rather his BP was out of control on admission w/ SBP in the 200 to 220 and DBP 100 to 110's, d/t being out of his meds x 3 days. BP has been much better controlled since resumption of his home meds I think that his meds could be adjusted for more GDT of his cardiomyopathy, i.e. wean down on the Procardia XL and substitute Entresto, titrate his carvedilol dose. He is euvolemic and his bedside POCUS left and right heart estimated pressures confirm this. He does not need diuretics at this point. I will begin him on an SGLT-2 inhibitor, begin low dose Entresto, and wean down his Procardia XL, continue carvedilol (2) Elevated troponin: Status: Acute Assessment and plan: type II demand ischemia, not acute NV, although he has hx of CAD w/ prior LAD occlusion which was apprently unstentable and not amenable to bypass. I told him that if he were to have angina equivalent symptoms then perhaps repeat stress MPI should be considered but he is not having angina symptoms. (3) Pleural effusion, right: Status: Acute Assessment and plan: patient to go for right sided thoracentesis by general surgery today w/ fluid cultures, aerobic and anaerbic, cytology including flow cytometry, LDH, total protein, glucose and pH and cell count w/ diff. Dr. Miriam Templeton, [employer] fscm developer, and I agree that his unilateral effusions is probably not d/t his cardiomyopathy but that he probably has another process going on although it has been a transudative effusion. we are concerned for mesothelioma and for CML. (4) Chronic myeloid leukemia: Status: Chronic Assessment and plan: -Continue home busutinib (5) Essential hypertension: Status: Chronic Assessment and plan: Continue carvedilol and nifedipine XL along with diuretics. (6) Coronary artery disease: Status: Chronic Assessment and plan: -History of left heart catheterization in 2017 with un-stentable mid LAD -Continue home aspirin and clopidogrel Qualifiers: Coronary Disease-Associated Artery/Lesion type: [place] artery [place] vs. transplanted heart: [place] heart Associated angina: unspecified whether angina present Qualified Code(s): I25.10 - Atherosclerotic heart disease of [place] coronary artery without angina pectoris (7) Cardiomyopathy, ischemic: Status: Chronic Assessment and plan: - As noted on recent echocardiogram and October 2023 which showed anterior apical, anterior septal, and apical segment akinesis,but an EF of 50 to 55% Subjective Subjective Interval history since last seen: Mr. Dupree states that he feels nauseated after meals. Not dyspneic at rest except when he lies down. No chest pain or pressure. Exam Narrative Exam Narrative: alert/oriented, NAD Neck: no JVD Lungs: clear on the left side but markedly diminshed on the right side from base to upper 1/3 of right hemithorax along w/ dullness to percussion Heart: irregularly irregular, no murmur or rub Abdomen: nondistended Extremities: no edema Objective Last Vital Signs Temp 37.4 C 01/10/24 09:05 Pulse 79 01/10/24 09:05 Resp 17 01/10/24 09:05 BP 156/88 H 01/10/24 09:05 Pulse Ox 96 01/10/24 09:05 Laboratory Results - last 24 hr 01/09/24 01/09/24 01/10/24 18:05 21:12 05:40 Sodium 143 145 Potassium 4.2 3.7 Chloride 106 107 Carbon Dioxide 25.6 27.0 Anion Gap 11.4 H 11.0 BUN 27 H 27 H Creatinine 2.1 H 2.0 H Est GFR (CKD-EPI 2020) 32.62 34.59 Glucose 124 H 85 Calcium 8.8 8.5 Magnesium 1.9 Troponin I 51 51 PAWSS Have you Been Recently Intoxicated or Drunk Within the Last 30 days?: No Have you Ever Experienced Previous Episodes of Alcohol Withdrawal?: No Have you ever Experienced Withdrawal Seizures?: No Have you ever Experienced Delirium Tremens(DT)s?: No Have you ever undergone Alcohol Rehabilitation Treatment (i.e, inpt ot outpatie nt treatment programs)?: No Have you ever Experienced Blackouts?: No Have you ever Combined Alcohol with other Downers within the last 90 days?: No Have you ever Combined Alcohol with any other Substance of Abuse during the last 90 days?: No Positive Blood Alcohol level on Presentation? [PCS.BAL]: No Evidence of Increased Autonomic Activity (i.e. HR>120, tremor, sweating, agitation, nausea)?: No Result: 0 Time Spent with Patient Time Spent with Patient: >50 minutes Time was spent: preparing to see the patient(eg.review tests), ordering medications,tests, procedures, referring, communicating with other health hospice patient care secretary (discussion w/ Dr. Olsen and w/ Dr. Templeton), indepentently interpreting results, counseling the patient and care coordination
--- NOTE | 2024-01-10 09:40 | W.POCUS ---
Pocus Exam Limited Cardiac Exam DATE OF EXAM: 01/10/24 TIME OF EXAM: 08:32 REASON FOR EXAM: Congestive heart failure and Dyspnea VISUALIZED STRUCTURES: four chambers, left atrium (left atrial enlargement), left ventricle (LVH mild ), LVOT, aortic valve, mitral valve, Interventricular septum and IVC VIEW OBTAINED: Apical 4-Chamber, Parasternal long-axis, Parasternal short-axis and Subxiphoid PERTINENT FINDINGS/IMPRESSION: IVC inspiratory collapsability and LV dysfunction :mild (moderate LVH, akinetic apex, akinetic apical inferoseptal wall, hypokinetic apical anterolateral wall, basal segments move best, inferolateral mid and basal levels and anteroseptal basal levels appear to have normal movement); No pericardial effusion, No plethoric IVC, No RV dilation and No RV dysfunction INCIDENTAL FINDINGS: trace to mild MR, mild TR, TR vmax 2.69 m/s, estimated TR gradient 29 mm, Mitral E wave avg velocity is 90 cm/s, and avg septal e' is 6.9, avg E/e' is 12.4, IVC is not plethoric at < 1 cm and collapses 72% w/ inspiration. Hepatic wave venous pulse doppler shows, normal hepatic wave pattern S>D, and normal portal vein and renal vein pattern w/ no pulsatility Exam complete
[2024-01-10] MEDS: Lidocaine 1% Multi-Dose W/EPI 1/100,000 50 ML VIAL (10:24)
[2024-01-10] MEDS: Sodium Bicarbonate 50 MEQ/50 ML VIAL (10:24)
--- NOTE | 2024-01-10 10:25 | PAPNONF_PTH ---
PATIENT: Shiv Dupree LOC: ICU U#:[id number] AGE/SX: 73/M ROOM: ICU.220 RE01/08/[address]: David Chinchilla MD : 1950 BED: A DIS: 01/11/2024 SPEC #: [id number] RECD: 01/10/24 17:24 STATUS: SOUDipesh REQ #: [id number] LYRIC: 01/10/24 10:[address]: David Chinchilla DEPT: [facility] Cytology RECD BY: Theresa Pinto ENTERED: 01/10/24 17:27 SP TYPE: PAPNONF OTHR DR: Evette Briggs, ORTHOTIST/PROSTHETIST Gali,Sosa Bernard, Constance Samayoa MD, DC Yuly,Gracie Saini-Ellie Watson, ORTHOTIST/PROSTHETIST Tissues: 1 - BODY FLUID CYTO(NOT S/U/N/EM)[facility] 2 - FLOW CYTOMETRY NODE/TISSUE Procedures: BODY FLUID CYTO(NOT SPU/UR/NIP/ENDOM)[facility] FLOW CYTOMETRY LYMPHOMA PNL Comments: [id number] (FLOW CYTOMETRY [id number]) (REFRIGERATED) (TOTAL VOLUME = 60 ml, SENT FRESH)
--- NOTE | 2024-01-10 11:02 | W.PM.OP ---
Date of service: 01/10/24 Time of Service: 11:02 Operative Note Operative Note DATE OF PROCEDURE: 01/10/24 PRE-OP DIAGNOSIS: Recurrent right pleural effusion POST-OP DIAGNOSIS: same PROCEDURE: Thoracentesis right chest SURGEON: Constance Olsen ANESTHESIA TYPE: Local By Surgeon Refer to Anesthesia Record ESTIMATED BLOOD LOSS: 1 PATHOLOGY: other COMPLICATIONS: None Patient was transported to: ICU Patient's condition: stable Procedure Description: REPORT OF OPERATION Operative Note Operative Note Pt is here today for thoracentesis for symptoms of shortness of breath.? Chest x-ray was reviewed prior to beginning the procedure.? Informed consent was obtained explaining risks and benefits of the procedure, including but not limited to bleeding, infection, pneumothorax, recurrence, complications of anesthesia, and other unforetold complications. Timeout is performed prior to beginning the procedure. ? PROCEDURE:? The patient is brought to the procedure room and placed in the seated position.? Ultrasound is used to localize the pocket on the right chest.? The area is marked and then prepped and draped in the usual sterile fashion using a ChloraPrep scrub solution.? 10 cc's of 1% Lidocaine is used to anesthetize the T10 interspace. ? The small rita is made with a #11 blade.? The needle and catheter is then inserted over the top of the rib, aspirating as it is inserted.? The needle is then removed.? The catheter is then hooked up to the Vacutainer system and 1300 cc's of straw-colored fluid is evacuated.? The catheter is removed; pressure is held.? Sterile compression dressing is applied. ? Ultrasound shows good lung slide up to the apex of the lung, and no air. Pt is given instructions in wound care, activity, medications, and warning signs: SOB, increasing in pain, chest pain, redness or temperature- if these occur, come to ED.
[2024-01-10 11:17] LABS: Source: Pleural
[2024-01-10 11:32] LABS: Clarity Clear; Mononuclear Cells 95 %; Nucleated Cells 525 uL (0); Polynuclear Cells 5 %; Source Pleural
[2024-01-10 12:29] LABS: Lab Add On Test DONE
[2024-01-10 12:49] LABS: Albumin 3.4 g/dL (3.4-5.0); LDH 188 U/L (85-227); Total Protein 7.1 g/dL (6.4-8.2)
[2024-01-10 17:03] LABS: Albumin, Body FLuid 2.1 g/dL (See Note)
[2024-01-11 00:02] VITALS: BP 136/78; PULSE 70; PULSE 77; RESP 21
[2024-01-11 04:01] VITALS: BP 123/83; PULSE 69; PULSE 75; RESP 22
[2024-01-11 06:02] LABS: Anion Gap 8.8 mmol/L (3-11); BUN 30 mg/dL (7-18); CO2 26.2 mmol/L (21.0-32.0); Calcium 8.5 mg/dL (8.5-10.1); Chloride 104 mmol/L (98-107); Estimated GFR 34.59 (mL/min/1.73m2); Glucose 106 mg/dL (74-106); NT-proBNP 1763 pg/mL (<300); Sodium 139 mmol/L (136-145)
[2024-01-11] MEDS: Levothyroxine 25 MCG TAB 50 MCG PO (06:29)
[2024-01-11 07:20] VITALS: BP 127/86; PULSE 75; PULSE 77; RESP 20
[2024-01-11] MEDS: Pantoprazole 40 MG TABCR PO (07:49)
--- NOTE | 2024-01-11 08:47 | PDOC.CMPRO ---
Date of service: 01/11/24 Time of Service: 08:47 Care Management Progress Note Discharge Potential Discharge Needs: PCP F/U Appt and Surgical F/U Appt Anticipated Barriers to Discharge: Medical Status Patient/Family Education Needs: Review discharge instructions, discuss Ask Me Three Transportation: Private vehicle Plan: Anticipate Paco will be discharged home with no new services. He will follow up with his community providers and plan of care and transport with family. CM will continue to support discharge planning. SDOH(Care Management) Screening Will the Patient Participate in the Screening?: Declined to provide
[2024-01-11] MEDS: Carvedilol 6.25 MG TAB PO (09:09)
[2024-01-11] MEDS: Aspirin E.C. 81 MG TABEC PO (09:11)
--- NOTE | 2024-01-11 09:23 | PDOC.CMDIS ---
Date of service: 01/11/24 Time of Service: 09:23 LACE Index Scoring Tool Questions: Length of Stay (in days): 3 Was the patient admitted via the E.D.?: Yes Comorbidities: Cerebrovascular Disease, Congestive Heart Failure, Chronic Pulmonary Disease and Liver or Renal Disease E.D. Visits: 1 Answers: Total Score: 12 Risk of Readmission: High Risk Care Management Discharge Plan Reason for Hospitalization: hypertensive emergency Discharge Plan: Anticipate Paco will be discharged home with no new services. He will follow up with his community providers and plan of care and transport with family. Patient/Family Education Needs: Review discharge instructions, limitations, follow up plan and discuss Ask Me Three SDAR Health Related Social Needs: No Data to Display
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
[2024-01-11] MEDS: Ranolazine 500 MG TABCR PO (09:55)
[2024-01-11] MEDS: DULoxetine 30 MG CAP PO (09:56)
[2024-01-11] MEDS: NIFEdipine-CR 30 MG TABCR PO (09:56)
[2024-01-11] MEDS: Empaglifozin 10 MG TAB PO (09:57)
[2024-01-11] MEDS: Apixaban 5 MG TAB PO (10:23)
[2024-01-11 10:25] VITALS: BP 132/78; PULSE 73; PULSE 74; RESP 22
[2024-01-11 10:40] VITALS: TEMP 37.1
[2024-01-11 10:43] VITALS: TEMP 37.1
[2024-01-12 10:29] LABS: Amylase, BF 68 U/L
[2024-01-12 10:34] LABS: Lipase, BF 6 U/L
[2024-01-12 11:54] LABS: Fluid Type PLEURAL; Lactate Dehydrogenase (LD), BF 111 U/L
[2024-01-12 11:55] LABS: Fluid Type Pleural; Protein,Total, BF 3.7 g/dL
[2024-01-13 14:07] LABS: Cholesterol (BF) 40 mg/dL; Triglyceride (BF) 19 mg/dL
== END 2024-01-11 11:00 | disposition home or self-care (01) | DRG 305 ==
LOC: ER 17:59 → ICU 19:30
PROVIDERS: Internal Medicine; Surgery; Admitting Provider Family Medicine; Emergency Provider Emergency Medicine; PCP Family Medicine; Visit Provider Family Medicine
PROC: 0W993ZZ Drainage of Right Pleural Cavity, Percutaneous Approach (ICD-10-PCS; CPT 32554; principal; 2024-01-10 14:45)
DX: I16.0 Hypertensive urgency (principal); J91.8 Pleural effusion in other conditions classified elsewhere; K25.3 Acute gastric ulcer without hemorrhage or perforation; C92.10 Chronic myeloid leukemia, BCR/ABL-positive, not having achieved remission; I50.42 Chronic combined systolic (congestive) and diastolic (congestive) heart failure; I24.89 Other forms of acute ischemic heart disease; I13.0 Hypertensive heart and chronic kidney disease with heart failure and stage 1 through stage 4 chronic kidney disease, or unspecified chronic kidney disease; N18.9 Chronic kidney disease, unspecified; F41.9 Anxiety disorder, unspecified; I25.5 Ischemic cardiomyopathy; I27.20 Pulmonary hypertension, unspecified; I08.2 Rheumatic disorders of both aortic and tricuspid valves; I25.118 Atherosclerotic heart disease of native coronary artery with other forms of angina pectoris; E78.5 Hyperlipidemia, unspecified; E03.9 Hypothyroidism, unspecified; K57.30 Diverticulosis of large intestine without perforation or abscess without bleeding; K44.9 Diaphragmatic hernia without obstruction or gangrene; D50.9 Iron deficiency anemia, unspecified; M1A.00X0 Idiopathic chronic gout, unspecified site, without tophus (tophi); Z86.73 Personal history of transient ischemic attack (TIA), and cerebral infarction without residual deficits; I48.91 Unspecified atrial fibrillation; R13.10 Dysphagia, unspecified; J44.9 Chronic obstructive pulmonary disease, unspecified; E53.8 Deficiency of other specified B group vitamins; L40.59 Other psoriatic arthropathy; I25.2 Old myocardial infarction; T44.7X6A Underdosing of beta-adrenoreceptor antagonists, initial encounter; T46.1X6A Underdosing of calcium-channel blockers, initial encounter; T46.99 Poisoning by, adverse effect of and underdosing of other agents primarily affecting the cardiovascular system; Z91.138 Patient's unintentional underdosing of medication regimen for other reason
CPT/HCPCS: 32555; 00123; 36415; 36416; 80048; 80053; 82042; 82550; 82664; 83690; 84311; 84478; 85027; 88185; 92610; 93005; 93308; 96361; 96374; 96375; 96376; 99222; 99291; 71046; 74221; 81003; 81015; 82040; 82150; 82570; 83615; 83735; 83880; 83986; 84155; 84157; 84484; 85025; 85610; 85730; 87070; 87075; 87205; 88104; 88184; 88189; 89051; 93010; 99223; 99233; 99239; J0360; J1650; J1941; J2004; J2405; J3490

== ENCOUNTER → 2024-01-10 07:45 | Outpatient (BNVA) | payer MEDICARE, SELFPAY | PROVIDERS: PCP Family Medicine; Referring Provider Family Medicine; Visit Provider Internal Medicine Cardiovascular Disease ==

== ENCOUNTER 2024-01-23 02:33 | Outpatient (CLI) | payer MEDICARE, SELFPAY ==
[2024-01-23] MEDS: Barium Sulfate 81% w/w for Oral Suspension 148 GM BTL PO (09:23)
[2024-01-23] MEDS: Barium Sulfate 40% W/V 240 ML BTL PO (09:24)
[2024-01-23] MEDS: Barium Sulfate Oral Paste 40% W/V 230 ML TUBE PO (09:24)
[2024-01-23] MEDS: Barium Sulfate 40% W/V 1500 CPS 250 ML BTL PO (09:25)
--- NOTE | 2024-01-23 09:35 | DI.RAD_ITS ---
Exam(s) RF MODIFIED SPEECH BA SWALLOW TECHNIQUE: Modified barium swallow was performed in conjunction with speech pathology. CONTRAST MATERIAL: Oral barium contrast was administered. COMPARISON: No exams were available for comparison FINDINGS: Note that this is not a dedicated esophagram, distal esophagus not evaluated. There is no evidence of aspiration or penetration of thick or thin liquids, barium coated cookie, or barium paste. Speech pathology report to follow. IMPRESSION: No evidence of aspiration or penetration. RADIATION DOSE DELIVERED: orin Dickey=3.37 mGy
--- NOTE | 2024-01-23 09:49 | ST.MBS_ITS ---
Date of Service Date of service: 01/23/24 Time of Service: 09:00 Modified Barium Swallow Study Findings: Video fluoroscopic Swallowing Evaluation (VFSE) / Modified Barium Swallow Study (MBSS) Speech Language Pathology Report Patient referred for VFSE/MBSS from Dr. Samayoa given dysphagia symptoms. HPI & Patient report of function: Patient is a 73 year old male with hx COPD, CHF, psoriatic arthritis on immunosuppression, impaired renal function, GERD on pantoprazole, dysphagia symptoms and recurrent R pleural effusions s/p thoracentesis on 01/10/24. He was recently hospitalized 01/07-01/10 for SOB, elevated troponin, and hypertension. During this hospitalization he underwent a barium swallow due to very low appetite/nausea, discomfort after eating, weightloss, hoarseness, and sensation of food/liquids sticking. Barium swallow results were unremarkable. Currently, Paco reports symptoms are improved- with increased appetite and PO intake. He continues to experience difficulty swallowing water (not other liquids) and notes there's nowhere for it to go and that it sits in his throat. IMPRESSIONS: Overall swallow function appears WFL for age/consistent with presbyphagia. Swallow safety and efficiency are preserved. There is no evidence of aspiration, penetration, or significant pharyngeal residue. Of notice, Paco did get his usual sensation after drinking barium liquids (thin & thick) that there was retention in the thyroid area, though no significant residue beyond trace coating was appreciated. See below for more detailed breakdown of each stage of the swallow. Patient appears to be at low risk for potential aspiration PNA and/or pulmonary compromise and low risk for malnutrition, low risk for dehydration. Diet modification is not indicated; non-oral nutrition is not indicated. Education provided to Paco re: WFL results. Suspect his symptoms may be due to pharyngeal hypersensitivity, which often occurs in the setting of GERD/LPR or PND. Film reviewed with patient and all questions answered. Specialist referrals:?N/A RECOMMENDATIONS: Diet Texture Recommendation:? IDDSI LEVEL SOLIDS 7-Regular Solids LIQUIDS 0-Thin Liquids MEDICATIONS Whole with thin liquids Risk Management Strategies:? Behavioral reflux precautions, including upright position during + 90 mins after meals. Small bites, approx [id number] Small sips, approx 10 mL PLAN: No further [employer] needs indicated. Discharged from [employer] services OBJECTIVE Videofluoroscopic Swallow Evaluation (VFSE/MBSS) was conducted in the lateral projection by Speech-Language Pathologist, in collaboration with Radiologist, to evaluate oropharyngeal swallow function. Anatomic view under fluoroscopy: WFL PO Barium Contrast Trials Oral barium water-soluble contrast was administered as follows: IDDSI Level 0 Varibar thin liquid (40% w/v) IDDSI Level 2 Varibar nectar thick/mildly thick liquid (40% w/v) IDDSI Level 4 Varibar pudding/pureed/extremely thick (40% w/v) IDDSI Level 7 Regular Solid: 1/2 naga cracker coated in 3 mL Varibar pudding MBSImP Component Scores: COMPONENT Scale SCORE 1 Lip closure (0-4) 0 Resulted in no labial escape 2 Hold Position (0-3) 0 Maintained a cohesive bolus between tongue to palatal seal 3 Bolus Preparation (0-4) 0 Resulted in timely and efficient chewing and mashing 4 Bolus Transport (0-4) 0 Was with brisk tongue motion 5 Oral Residue (0-4) 1 Was a trace, lining oral structures 6 Swallow Initiation (0-4) 1 Occurred when the bolus head was in valleculae 7 Soft Palate Elevation (0-4) 0 Resulted in no bolus between soft palate and the pharyngeal wall 8 Laryngeal Elevation (0-3) 0 Demonstrated complete superior movement of thyroid cartilage with complete approximation of arytenoids to epiglottic petiole 9 Anterior Hyoid Motion (0-2) 1 Demonstrated partial anterior movement 10 Epiglottic Movement (0-2) 0 Resulted in complete inversion 11 Laryngeal Closure (0-2) 0 Was complete with no air or contrast in laryngeal vestibule 12 Pharyngeal Stripping Wave (0-2) 0 Was present and complete 13 Pharyngeal Contraction (0-3) 0 Was complete 14 PES Opening (0-3) 0 Was completely distended and complete duration with no obstruction of flow 15 Tongue Base Retraction (0-4) 1 Allowed a trace column of contrast or air between tongue base and pharyngeal wall 16 Pharyngeal Residue (0-4) 1 Showed a trace within or on pharyngeal structures 17 Esophageal Clearance (0-4) 0 Was complete, with only a coating of contrast, if any Results: COMPONENT Scale SCORE 1 Oral Score (0-18) 1 2 Pharyngeal Score (0-29) 1 3 Esophageal Score (0-4) 0 Functional Oral Intake Scale: COMPONENT Scale SCORE 1 Pre-Study (1-7) 7 Total oral intake with no restrictions 2 Post-Study (1-7) 7 Total oral intake with no restrictions Penetration-Aspiration Scale: COMPONENT Scale SCORE 1 Thin liquid (1-8) 1 Contrast did not enter the airway 2 [place] thick (1-8) 1 Contrast did not enter the airway 3 Honey thick (1-8) NA 4 Pudding thick (1-8) 1 Contrast did not enter the airway 5 Cookie (1-8) 1 Contrast did not enter the airway Thank you for allowing us to take part in this patient's care. Please feel free to contact the [facility] Speech Language Pathology Department with any questions/concerns.
== END 2024-01-23 02:53 ==
LOC: DI 02:33
PROVIDERS: PCP Family Medicine; Visit Provider Family Medicine
DX: R13.10 Dysphagia, unspecified (principal)
CPT/HCPCS: 92526; 74221

== ENCOUNTER 2024-01-25 12:53 | Outpatient (CLI) | payer MEDICARE, SELFPAY ==
--- NOTE | 2024-01-25 12:45 | DI.RAD_ITS ---
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 Two images were obtained. PA and lateral views were obtained. COMPARISON: CR,XR XR CHEST 2V PA LATERAL from 01/08/2024 CR,RF RF BARIUM SWALLOW from 01/09/2024 FINDINGS: MEDIASTINUM: Normal. HEART: Cardiomegaly. PULMONARY VASCULATURE: Normal. LUNGS: There is atelectasis in the right lower lobe. No focal consolidating infiltrates are seen in the left. PLEURAL SPACE: There has been an interval decrease in size of the right pleural effusion which is now small and occupies approximately corner of the right hemithorax. No left pleural effusion. No pneu mothorax. BONE:Within normal limits for the patient's age. OTHER FINDINGS:Normal. IMPRESSION: 1. Interval decrease in size of the right pleural effusion which is now small. 2. Right basilar atelectasis. DATA REPOSITORY: RADIATION DOSE DELIVERED:
== END 2024-01-25 13:13 ==
PROVIDERS: PCP Family Medicine; Visit Provider Internal Medicine Hematology & Oncology
DX: J90 Pleural effusion, not elsewhere classified (principal)
CPT/HCPCS: 36415; 81206; 71046

== ENCOUNTER 2024-01-25 12:54 | Outpatient (CLI) | payer MEDICARE, SELFPAY ==
[2024-01-30 10:25] LABS: Indication for Study See Comments
[2024-01-30 10:26] LABS: BCR-ABL1 p210 FusionTranscript Not Detected
[2024-01-30 10:29] LABS: BCR-ABL1 Interpretation See Comments
[2024-01-30 10:37] LABS: Limitations and Disclaimers See Comments
== END 2024-01-25 12:55 | disposition home or self-care (01) ==
LOC: LBO 12:55
PROVIDERS: PCP Family Medicine; Visit Provider Nurse Practitioner Adult Health
DX: C92.10 Chronic myeloid leukemia, BCR/ABL-positive, not having achieved remission (principal)
CPT/HCPCS: 36415; 81206

== ENCOUNTER → 2024-01-30 12:16 | Outpatient (BNVA) | payer MEDICARE, SELFPAY | PROVIDERS: PCP Family Medicine; Referring Provider Family Medicine; Visit Provider Internal Medicine Critical Care Medicine | DX: J90 Pleural effusion, not elsewhere classified (principal) | CPT/HCPCS: 99214 ==

== ENCOUNTER → 2024-02-07 11:12 | Outpatient (BNVA) | payer MEDICARE, SELFPAY | PROVIDERS: PCP Family Medicine; Referring Provider Family Medicine; Visit Provider Surgery | DX: J90 Pleural effusion, not elsewhere classified (principal) | CPT/HCPCS: 99213 ==

== ENCOUNTER 2024-02-15 03:09 | Outpatient (CLI) | payer MEDICARE, SELFPAY ==
[2024-02-15 10:35] LABS: Abs Immature Grans 0.04 10^3/uL (0.0-0.06); Absolute Basophil Count 0.12 10^3/uL (0.0-0.2); Absolute Eosinophil Count 0.54 10^3/uL (0.0-0.7); Absolute Lymphocyte Count 1.11 10^3/uL (1.2-3.4); Absolute Monocyte Count 0.71 10^3/uL (0.1-0.8); Absolute Neutrophil Count 3.54 10^3/uL (1.2-6.7); Eosinophils % 8.9 %; HCT 47.7 % (40.0-50.0); HGB 15.1 g/dL (13.5-17.5); Immature Grans % 0.7 %; Lymphocytes % 18.3 %; MCH 27.5 pg (27.0-33.0); MCHC 31.7 % (32.0-36.0); MCV 87 fL (80-95); Monocytes % 11.7 %; Neutrophils % 58.4 %; Platelet Count 252 10^3/uL (130-400); RDW 18.5 % (11.8-14.1); RDW-SD 57.7 fL; WBC 6.06 10^3/uL (4.4-10.8)
[2024-02-15 10:52] LABS: ALT 18 U/L (16-63); AST 34 U/L (15-37); Albumin 3.9 g/dL (3.4-5.0); Alkaline Phosphatase 92 U/L (46-116); Anion Gap 9.7 mmol/L (3-11); BUN 24 mg/dL (7-18); Bilirubin, Total 0.56 mg/dL (0.2-1.0); CO2 25.3 mmol/L (21.0-32.0); CREATININE 2.2 mg/dL (0.70-1.30); Calcium 9.3 mg/dL (8.5-10.1); Chloride 105 mmol/L (98-107); Estimated GFR 30.85 (mL/min/1.73m2); Glucose 141 mg/dL (74-106); Potassium 4.4 mmol/L (3.5-5.1); Sodium 140 mmol/L (136-145); Total Protein 7.8 g/dL (6.4-8.2)
[2024-02-20 11:35] LABS: Indication for Study CML
[2024-02-20 11:37] LABS: BCR-ABL1 p210 FusionTranscript See Comments
[2024-02-20 11:40] LABS: BCR-ABL1 Interpretation See Comments
[2024-02-20 11:50] LABS: Limitations and Disclaimers See Comments
== END 2024-02-15 03:10 | disposition home or self-care (01) ==
LOC: LBO 03:10
PROVIDERS: PCP Family Medicine; Visit Provider Internal Medicine Hematology & Oncology
DX: C92.10 Chronic myeloid leukemia, BCR/ABL-positive, not having achieved remission (principal)
CPT/HCPCS: 36415; 80053; 81206; 85025

== ENCOUNTER 2024-02-27 03:29 | Outpatient (CLI) | payer MEDICARE, SELFPAY ==
--- NOTE | 2024-02-27 07:00 | DI.RAD_ITS ---
Exam(s) XR CHEST 2V PA LATERAL EXAM: XR CHEST 2V PA LATERAL CLINICAL HISTORY: f/u rt pleural effusion,j90. TECHNIQUE: 2D digital imaging was performed. COMPARISON: CR XR CHEST 2V PA LATERAL from 01/25/2024 FINDINGS: 2 views: Mild cardiomegaly again noted. Mediastinum is not widened. Left lung is clear. There is a small-mo derate size right pleural effusion again noted. This is unchanged in size from 01/25/2024. Some atelectasis in the right lung base noted. No airspace pulmonary edema. IMPRESSION: Persistent right pleural effusion which is unchanged in size from 01/25/2024. DATA REPOSITORY: RADIATION DOSE DELIVERED:
== END 2024-02-27 03:49 ==
LOC: DI 03:29
PROVIDERS: PCP Family Medicine; Visit Provider Internal Medicine Critical Care Medicine
DX: J90 Pleural effusion, not elsewhere classified (principal)
CPT/HCPCS: 71046

== ENCOUNTER → 2024-02-28 09:06 | Outpatient (BNVA) | payer MEDICARE, SELFPAY | PROVIDERS: PCP Family Medicine; Visit Provider Internal Medicine Cardiovascular Disease | DX: I48.91 Unspecified atrial fibrillation (principal); I25.10 Atherosclerotic heart disease of native coronary artery without angina pectoris | CPT/HCPCS: 99213 ==

== ENCOUNTER → 2024-03-05 10:00 | Outpatient (BNVA) | payer MEDICARE, SELFPAY | PROVIDERS: PCP Family Medicine; Referring Provider Family Medicine; Visit Provider Physician Assistant Surgical | DX: J90 Pleural effusion, not elsewhere classified (principal); J44.9 Chronic obstructive pulmonary disease, unspecified; G47.34 Idiopathic sleep related nonobstructive alveolar hypoventilation | CPT/HCPCS: 99214 ==

== ENCOUNTER 2024-03-21 02:53 | Outpatient (CLI) | payer MEDICARE, SELFPAY ==
[2024-03-21 10:40] LABS: Abs Immature Grans 0.03 10^3/uL (0.0-0.06); Absolute Basophil Count 0.04 10^3/uL (0.0-0.2); Absolute Eosinophil Count 0.02 10^3/uL (0.0-0.7); Absolute Lymphocyte Count 1.25 10^3/uL (1.2-3.4); Absolute Neutrophil Count 9.92 10^3/uL (1.2-6.7); Basophils % 0.3 %; Eosinophils % 0.2 %; HCT 49.5 % (40.0-50.0); HGB 15.6 g/dL (13.5-17.5); Immature Grans % 0.2 %; Lymphocytes % 10.4 %; MCHC 31.5 % (32.0-36.0); MCV 89 fL (80-95); MPV 8.6 fL (8.0-11.0); Monocytes % 6.6 %; Neutrophils % 82.3 %; Platelet Count 300 10^3/uL (130-400); RBC 5.57 10^6/uL (4.36-5.78); RDW 16.5 % (11.8-14.1); RDW-SD 53.7 fL; WBC 12.05 10^3/uL (4.4-10.8)
[2024-03-21 10:55] LABS: ALT 21 U/L (16-63); AST 23 U/L (15-37); Albumin 3.8 g/dL (3.4-5.0); Alkaline Phosphatase 89 U/L (46-116); Anion Gap 13.3 mmol/L (3-11); BUN 31 mg/dL (7-18); Bilirubin, Total 0.61 mg/dL (0.2-1.0); CO2 26.7 mmol/L (21.0-32.0); Calcium 9.5 mg/dL (8.5-10.1); Chloride 106 mmol/L (98-107); Estimated GFR 34.59 (mL/min/1.73m2); Glucose 128 mg/dL (74-106); Potassium 4.7 mmol/L (3.5-5.1); Sodium 146 mmol/L (136-145); Total Protein 8.1 g/dL (6.4-8.2)
[2024-03-23 14:02] LABS: BCR/ABL1, p210 Result see interpretation; Specimen Type EDTA Whole Blood
== END 2024-03-21 02:54 | disposition home or self-care (01) ==
LOC: LBO 02:53
PROVIDERS: Nurse Practitioner Adult Health; PCP Family Medicine; Visit Provider Internal Medicine Hematology & Oncology
DX: C92.10 Chronic myeloid leukemia, BCR/ABL-positive, not having achieved remission (principal)
CPT/HCPCS: 36415; 80053; 81206; 85025

== ENCOUNTER 2024-04-03 01:14 | Outpatient (CLI) | payer MEDICARE, SELFPAY ==
--- NOTE | 2024-04-03 06:30 | DI.RAD_ITS ---
Exam(s) XR CHEST 2V PA LATERAL EXAM: XR CHEST 2V PA LATERAL CLINICAL HISTORY: assess pleural effusion,J90 TECHNIQUE: 2D digital imaging was performed of the chest. Two images were obtained. PA and lateral views were obtained. COMPARISON: CR XR CHEST 2V PA LATERAL from 02/27/2024 FINDINGS: MEDIASTINUM: Normal. HEART: Normal. PULMONARY VASCULATURE: Normal. LUNGS: Clear. PLEURAL SPACE: There is a persistent small right pleural effusion which appears have decreased in siz e compared to the prior examination. No left pleural effusion. No pneumothorax. BONE:Within normal limits for the patient's age. OTHER FINDINGS:Normal. IMPRESSION: Persistent small right pleural effusion which has slightly decreased in size compared to the prior ex amination. DATA REPOSITORY: RADIATION DOSE DELIVERED:
== END 2024-04-03 01:34 ==
PROVIDERS: PCP Family Medicine; Visit Provider Family Medicine
DX: J90 Pleural effusion, not elsewhere classified (principal)
CPT/HCPCS: 71046

== ENCOUNTER 2024-09-26 01:43 | Outpatient (CLI) | payer MEDICARE, SELFPAY ==
--- NOTE | 2024-09-26 09:40 | DI.RAD_ITS ---
Exam(s) XR LUMBAR SPINE COMPLETE EXAM: XR LUMBAR SPINE COMPLETE CLINICAL HISTORY: low back pain, hip pain,m25.559,m54.41. TECHNIQUE: 2D digital imaging was performed. COMPARISON: No exams were available for comparison FINDINGS: Five views. No evidence fractures. There is mild degenerative anterolisthesis of L4 upon L5. No pars defects. This related to facet arthropathy. Most advanced disc space narrowing is at L2-3 level, more so on t he right than left side. The other disc spaces exhibit moderate disc space narrowing and vacuum phen omenon. The L1-2 disc space as well as T12-L1 disc spaces exhibit normal height. There is no signif icant scoliosis. Sacroiliac joints appear unremarkable. Bone density normal. No osseous lesions. Surgical clips from prior cholecystectomy are noted in the right upper quadrant. IMPRESSION: Multi level chronic degenerative disc disease. The most prominent disc space narrowing is at the L2- 3 level as described above. DATA REPOSITORY: RADIATION DOSE DELIVERED:
--- NOTE | 2024-09-26 09:40 | DI.RAD_ITS ---
Exam(s) XR HIP PELVIS ADULT BL EXAM: XR HIP PELVIS ADULT BL CLINICAL HISTORY: b/l hip pain,low back pain,m25.559,m54.41. TECHNIQUE: 2D digital imaging was performed. Three views. COMPARISON: CR XR lumbar spine complete from 03/06/2018 FINDINGS: BONES: No acute fracture is present. No bony destructive lesion is seen. JOINTS: No dislocation present. The hip joint spaces are maintained. There is mild acetabular spurri ng bilaterally. SI joints and pubic symphysis are unremarkable. SOFT TISSUE: Normal. IMPRESSION: Minimal degenerative changes of the hips. DATA REPOSITORY: RADIATION DOSE DELIVERED:
== END 2024-09-26 02:03 ==
LOC: DI 01:43
PROVIDERS: PCP Family Medicine; Visit Provider Family Medicine
DX: M54.41 Lumbago with sciatica, right side; M16.0 Bilateral primary osteoarthritis of hip
CPT/HCPCS: 73521; 72110

== ENCOUNTER 2024-10-10 08:19 | Outpatient (RCR) | payer MEDICARE, SELFPAY | END 2024-10-10 23:59 | disposition home or self-care (01) | LOC: CR 08:19 | PROVIDERS: PCP Family Medicine; Visit Provider Internal Medicine Cardiovascular Disease | DX: I25.10 Atherosclerotic heart disease of native coronary artery without angina pectoris (principal); Z95.5 Presence of coronary angioplasty implant and graft; Z51.89 Encounter for other specified aftercare; Z95.0 Presence of cardiac pacemaker | CPT/HCPCS: S9472 ==

== ENCOUNTER 2024-10-10 10:05 | Outpatient (CLI) | payer MEDICARE, SELFPAY ==
[2024-10-10 10:00] LABS: Abs Immature Grans 0.02 10^3/uL (0.0-0.06); Absolute Basophil Count 0.09 10^3/uL (0.0-0.2); Absolute Eosinophil Count 0.29 10^3/uL (0.0-0.7); Absolute Lymphocyte Count 1.52 10^3/uL (1.2-3.4); Absolute Monocyte Count 0.78 10^3/uL (0.1-0.8); Absolute Neutrophil Count 3.72 10^3/uL (1.2-6.7); Basophils % 1.4 %; Eosinophils % 4.5 %; HGB 17.8 g/dL (13.5-17.5); Immature Grans % 0.3 %; Lymphocytes % 23.7 %; MCH 30.5 pg (27.0-33.0); MCHC 33.6 % (32.0-36.0); MCV 91 fL (80-95); MPV 8.8 fL (8.0-11.0); Monocytes % 12.1 %; Platelet Count 246 10^3/uL (130-400); RBC 5.83 10^6/uL (4.36-5.78); RDW 13.4 % (11.8-14.1); RDW-SD 44.9 fL; WBC 6.42 10^3/uL (4.4-10.8)
[2024-10-10 10:01] LABS: ESR 17 mm/hr (0-20)
[2024-10-10 10:50] LABS: ALT 30 U/L (16-63); AST 30 U/L (15-37); Albumin 3.9 g/dL (3.4-5.0); Alkaline Phosphatase 102 U/L (46-116); Anion Gap 10.3 mmol/L (3-11); BUN 26 mg/dL (7-18); Bilirubin, Total 0.8 mg/dL (0.2-1.0); CO2 26.7 mmol/L (21.0-32.0); CREATININE 1.8 mg/dL (0.70-1.30); Calcium 9.4 mg/dL (8.5-10.1); Chloride 106 mmol/L (98-107); Estimated GFR 39.01 (mL/min/1.73m2); Glucose 95 mg/dL (74-106); Potassium 4.4 mmol/L (3.5-5.1); Sodium 143 mmol/L (136-145); Total Protein 7.8 g/dL (6.4-8.2)
[2024-10-10 11:00] LABS: TSH (W/Ref FT4) 2.52 uIU/mL (0.36-3.74)
[2024-10-10 11:01] LABS: C-Reactive Protein < 0.50 mg/dL (<or=0.5)
[2024-10-11 14:25] LABS: %BCR-ABL1 Not Detected; BCR-ABL1 Molecular Response Not Detected; BCR-ABL1 p210 FusionTranscript Not Detected (NotDetected)
[2024-10-11 14:26] LABS: BCR-ABL1 Interpretation See Comments
[2024-10-11 14:27] LABS: BCR-ABL1 Methods & Limitations See Comments
== END 2024-10-10 10:06 | disposition home or self-care (01) ==
LOC: LBO 10:06
PROVIDERS: PCP Family Medicine; Visit Provider Internal Medicine Hematology & Oncology
DX: E03.9 Hypothyroidism, unspecified (principal); L40.50 Arthropathic psoriasis, unspecified; C92.10 Chronic myeloid leukemia, BCR/ABL-positive, not having achieved remission
CPT/HCPCS: 36415; 80053; 81206; 85652; 84443; 85025; 86140

== ENCOUNTER 2024-11-09 08:27 | Outpatient (RCR) | payer MEDICARE, SELFPAY | END 2024-11-10 23:59 | disposition home or self-care (01) | LOC: CR 08:27 | PROVIDERS: PCP Family Medicine; Visit Provider Internal Medicine Cardiovascular Disease | DX: I25.10 Atherosclerotic heart disease of native coronary artery without angina pectoris (principal); Z95.5 Presence of coronary angioplasty implant and graft; Z51.89 Encounter for other specified aftercare | CPT/HCPCS: S9472 ==

== ENCOUNTER 2024-11-28 10:18 | Outpatient (CLI) | payer MEDICARE, SELFPAY ==
[2024-12-04 10:37] LABS: %BCR-ABL1 Not Detected; BCR-ABL1 Molecular Response Not Detected; BCR-ABL1 p210 FusionTranscript Not Detected (NotDetected); Indication for Study CML
[2024-12-04 10:40] LABS: BCR-ABL1 Methods & Limitations See Comments
[2024-12-04 10:42] LABS: BCR-ABL1 Interpretation See Comments
== END 2024-11-28 10:19 | disposition home or self-care (01) ==
LOC: LBO 10:19
PROVIDERS: PCP Family Medicine; Visit Provider Internal Medicine Hematology & Oncology
DX: C92.10 Chronic myeloid leukemia, BCR/ABL-positive, not having achieved remission (principal); D75.1 Secondary polycythemia
CPT/HCPCS: 81206

== ENCOUNTER 2024-12-03 08:00 | Outpatient (RCR) | payer MEDICARE, SELFPAY | END 2024-12-10 23:59 | disposition home or self-care (01) | LOC: CR 08:00 | PROVIDERS: PCP Family Medicine; Visit Provider Internal Medicine Cardiovascular Disease | DX: I25.10 Atherosclerotic heart disease of native coronary artery without angina pectoris (principal); Z95.5 Presence of coronary angioplasty implant and graft; Z51.89 Encounter for other specified aftercare; Z95.0 Presence of cardiac pacemaker | CPT/HCPCS: S9472 ==

== ENCOUNTER 2024-12-21 07:27 | Outpatient (CLI) | payer MEDICARE, SELFPAY ==
[2024-12-21 08:11] LABS: Abs Immature Grans 0.01 10^3/uL (0.0-0.06); ESR 10 mm/hr (0-20); HCT 49.1 % (40.0-50.0); HGB 16.1 g/dL (13.5-17.5); Immature Grans % 0.2 %; MCH 30.1 pg (27.0-33.0); MCHC 32.8 % (32.0-36.0); MCV 92 fL (80-95); MPV 9.1 fL (8.0-11.0); Platelet Count 235 10^3/uL (130-400); RBC 5.34 10^6/uL (4.36-5.78); RDW 13.5 % (11.8-14.1); RDW-SD 46.5 fL; WBC 5.47 10^3/uL (4.4-10.8)
[2024-12-21 08:59] LABS: ALT 29 U/L (16-63); AST 26 U/L (15-37); Albumin 3.7 g/dL (3.4-5.0); Alkaline Phosphatase 108 U/L (46-116); Anion Gap 12.5 mmol/L (3-11); BUN 25 mg/dL (7-18); Bilirubin, Total 0.5 mg/dL (0.2-1.0); CO2 23.5 mmol/L (21.0-32.0); Calcium 8.9 mg/dL (8.5-10.1); Chloride 105 mmol/L (98-107); Estimated GFR 44.93 (mL/min/1.73m2); Glucose 134 mg/dL (74-106); Potassium 3.7 mmol/L (3.5-5.1); Sodium 141 mmol/L (136-145); Total Protein 7.4 g/dL (6.4-8.2); Uric Acid 6.8 mg/dL (3.5-7.2)
[2024-12-21 09:03] LABS: C-Reactive Protein < 0.50 mg/dL (<or=0.5)
[2024-12-21 18:38] LABS: HBs Antibody, Quant <3.1 mIU/mL (See Note); Hepatitis B Surface Ab Negative (See Note)
[2024-12-21 19:20] LABS: Hepatitis C Ab w Rflx HCV PCR Negative (Negative)
[2024-12-21 19:21] LABS: Hep B Core Antibody Negative (Negative)
[2024-12-24 13:55] LABS: TB Interpretation Negative (Negative); TB1 Ag minus Nil 0.00 IU/mL; TB2 Ag minus Nil 0.01 IU/mL
== END 2024-12-21 07:28 | disposition home or self-care (01) ==
LOC: LBO 07:27
PROVIDERS: PCP Family Medicine; Visit Provider Student in an Organized Health Care Education/Training Program
DX: Z79.899 Other long term (current) drug therapy (principal); L40.50 Arthropathic psoriasis, unspecified; M51.360 Other intervertebral disc degeneration, lumbar region with discogenic back pain only; M12.811 Other specific arthropathies, not elsewhere classified, right shoulder; M12.812 Other specific arthropathies, not elsewhere classified, left shoulder; M79.641 Pain in right hand; M79.642 Pain in left hand; D84.821 Immunodeficiency due to drugs; M06.4 Inflammatory polyarthropathy
CPT/HCPCS: 36415; 80053; 85652; 86200; 86704; 86706; 86803; 87340; 84550; 85025; 86140; 86431; 86480

== ENCOUNTER 2025-02-06 15:02 | Outpatient (CLI) | payer MEDICARE, SELFPAY ==
[2025-02-06 15:26] LABS: ESR 10 mm/hr (0-20)
[2025-02-06 15:33] LABS: Abs Immature Grans 0.02 10^3/uL (0.0-0.06); HCT 50.3 % (40.0-50.0); HGB 16.7 g/dL (13.5-17.5); Immature Grans % 0.3 %; MCH 30.5 pg (27.0-33.0); MCHC 33.2 % (32.0-36.0); MCV 92 fL (80-95); MPV 8.6 fL (8.0-11.0); Platelet Count 249 10^3/uL (130-400); RBC 5.47 10^6/uL (4.36-5.78); RDW 13.1 % (11.8-14.1); RDW-SD 44.4 fL; WBC 6.69 10^3/uL (4.4-10.8)
[2025-02-06 15:57] LABS: ALT 32 U/L (16-63); AST 30 U/L (15-37); Albumin 4.1 g/dL (3.4-5.0); Alkaline Phosphatase 100 U/L (46-116); Anion Gap 11.3 mmol/L (3-11); BUN 26 mg/dL (7-18); Bilirubin, Total 0.7 mg/dL (0.2-1.0); CO2 25.7 mmol/L (21.0-32.0); Calcium 9.0 mg/dL (8.5-10.1); Chloride 103 mmol/L (98-107); Estimated GFR 44.93 (mL/min/1.73m2); Glucose 99 mg/dL (74-106); Potassium 4.2 mmol/L (3.5-5.1); Sodium 140 mmol/L (136-145); Total Protein 7.8 g/dL (6.4-8.2); Uric Acid 6.6 mg/dL (3.5-7.2)
[2025-02-06 16:19] LABS: C-Reactive Protein < 0.50 mg/dL (<or=0.5)
== END 2025-02-06 15:03 | disposition home or self-care (01) ==
LOC: LBO 15:03
PROVIDERS: Student in an Organized Health Care Education/Training Program; PCP Family Medicine; Visit Provider Internal Medicine Hematology & Oncology
DX: L40.50 Arthropathic psoriasis, unspecified (principal); C92.10 Chronic myeloid leukemia, BCR/ABL-positive, not having achieved remission; M51.360 Other intervertebral disc degeneration, lumbar region with discogenic back pain only; Z79.899 Other long term (current) drug therapy; M12.811 Other specific arthropathies, not elsewhere classified, right shoulder; M12.812 Other specific arthropathies, not elsewhere classified, left shoulder; M79.641 Pain in right hand; M79.642 Pain in left hand; D84.821 Immunodeficiency due to drugs; M06.4 Inflammatory polyarthropathy
CPT/HCPCS: 36415; 80053; 81206; 85652; 86200; 86704; 86706; 86803; 87340; 84550; 85025; 86140; 86431; 86480

== ENCOUNTER 2025-02-12 15:55 | Outpatient (CLI) | payer MEDICARE, SELFPAY ==
[2025-02-15 10:51] LABS: Indication for Study CML
== END 2025-02-12 15:56 | disposition home or self-care (01) ==
LOC: LBO 15:55
PROVIDERS: PCP Family Medicine; Visit Provider Internal Medicine Hematology & Oncology
DX: C92.10 Chronic myeloid leukemia, BCR/ABL-positive, not having achieved remission (principal); L40.50 Arthropathic psoriasis, unspecified
CPT/HCPCS: 81206

== ENCOUNTER 2025-02-21 14:53 | Outpatient (CLI) | payer MEDICARE, SELFPAY ==
[2025-02-22 11:27] LABS: ALT 34 U/L (16-63); AST 38 U/L (15-37); Albumin 4.0 g/dL (3.4-5.0); Alkaline Phosphatase 84 U/L (46-116); Anion Gap 11.8 mmol/L (3-11); BUN 31 mg/dL (7-18); Bilirubin, Total 0.9 mg/dL (0.2-1.0); CO2 24.2 mmol/L (21.0-32.0); Calcium 9.0 mg/dL (8.5-10.1); Chloride 105 mmol/L (98-107); Estimated GFR 39.01 (mL/min/1.73m2); Glucose 119 mg/dL (74-106); Potassium 4.0 mmol/L (3.5-5.1); Sodium 141 mmol/L (136-145); Total Protein 7.0 g/dL (6.4-8.2)
[2025-02-25 07:46] LABS: Indication for Study CML
== END 2025-02-21 14:54 | disposition home or self-care (01) ==
LOC: LBO 14:53
PROVIDERS: PCP Family Medicine; Visit Provider Internal Medicine Hematology & Oncology
DX: C92.10 Chronic myeloid leukemia, BCR/ABL-positive, not having achieved remission (principal)
CPT/HCPCS: 36415; 80053; 81206

== ENCOUNTER 2025-04-17 12:16 | Outpatient (CLI) | payer MEDICARE, SELFPAY ==
[2025-04-17 10:14] LABS: Abs Immature Grans 0.01 10^3/uL (0.0-0.06); HCT 49.1 % (40.0-50.0); HGB 16.1 g/dL (13.5-17.5); Immature Grans % 0.1 %; MCH 30.8 pg (27.0-33.0); MCHC 32.8 % (32.0-36.0); MCV 94 fL (80-95); MPV 9.4 fL (8.0-11.0); Platelet Count 260 10^3/uL (130-400); RBC 5.23 10^6/uL (4.36-5.78); RDW 13.2 % (11.8-14.1); RDW-SD 45.3 fL; WBC 7.71 10^3/uL (4.4-10.8)
[2025-04-17 11:05] LABS: ALT 24 U/L (16-63); AST 19 U/L (15-37); Albumin 3.9 g/dL (3.4-5.0); Alkaline Phosphatase 115 U/L (46-116); Anion Gap 13.2 mmol/L (3-11); BUN 23 mg/dL (7-18); Bilirubin, Total 0.6 mg/dL (0.2-1.0); CO2 22.8 mmol/L (21.0-32.0); Calcium 8.7 mg/dL (8.5-10.1); Chloride 107 mmol/L (98-107); Glucose 147 mg/dL (74-106); Potassium 4.0 mmol/L (3.5-5.1); Sodium 143 mmol/L (136-145); Total Protein 7.9 g/dL (6.4-8.2)
[2025-04-19 15:30] LABS: Indication for Study CML
[2025-04-19 15:31] LABS: BCR-ABL1 p210 FusionTranscript Detected (NotDetected)
== END 2025-04-17 12:17 | disposition home or self-care (01) ==
LOC: LBO 12:16
PROVIDERS: PCP Family Medicine; Visit Provider Internal Medicine Hematology & Oncology
DX: L40.50 Arthropathic psoriasis, unspecified (principal); C92.10 Chronic myeloid leukemia, BCR/ABL-positive, not having achieved remission
CPT/HCPCS: 36415; 80053; 81206; 85025

== ENCOUNTER 2025-04-23 13:36 | Outpatient (CLI) | payer MEDICARE, SELFPAY ==
[2025-04-23 13:50] LABS: Abs Immature Grans 0.03 10^3/uL (0.0-0.06); HCT 48.0 % (40.0-50.0); HGB 15.7 g/dL (13.5-17.5); Immature Grans % 0.3 %; MCH 30.0 pg (27.0-33.0); MCHC 32.7 % (32.0-36.0); MCV 92 fL (80-95); MPV 9.2 fL (8.0-11.0); Platelet Count 235 10^3/uL (130-400); RBC 5.23 10^6/uL (4.36-5.78); RDW 13.2 % (11.8-14.1); RDW-SD 44.7 fL; WBC 8.76 10^3/uL (4.4-10.8)
[2025-04-23 14:28] LABS: Uric Acid 8.0 mg/dL (3.7-9.2)
[2025-04-23 14:31] LABS: ALT 19 U/L (10-49); AST 24 U/L (<34); Albumin 4.9 g/dL (3.4-5.0); Alkaline Phosphatase 114 U/L (46-116); Anion Gap 10.7 mmol/L (3-11); BUN 24 mg/dL (9-23); Bilirubin, Total 0.70 mg/dL (0.2-1.2); CO2 23.3 mmol/L (20.0-31.0); Calcium 8.8 mg/dL (8.3-10.6); Chloride 109 mmol/L (98-107); Glucose 72 mg/dL (74-106); Potassium 4.1 mmol/L (3.5-5.1); Sodium 143 mmol/L (136-145); Total Protein 7.9 g/dL (5.7-8.2)
== END 2025-04-23 13:37 | disposition home or self-care (01) ==
LOC: LBO 13:36
PROVIDERS: PCP Family Medicine; Visit Provider Student in an Organized Health Care Education/Training Program
DX: L40.50 Arthropathic psoriasis, unspecified (principal); M51.360 Other intervertebral disc degeneration, lumbar region with discogenic back pain only; Z79.899 Other long term (current) drug therapy; M12.811 Other specific arthropathies, not elsewhere classified, right shoulder; M12.812 Other specific arthropathies, not elsewhere classified, left shoulder; M25.562 Pain in left knee; G89.29 Other chronic pain; M10.9 Gout, unspecified
CPT/HCPCS: 36415; 80053; 84550; 85025

== ENCOUNTER 2025-04-24 12:55 | Outpatient (CLI) | payer MEDICARE, SELFPAY ==
--- NOTE | 2025-04-24 12:45 | RT.EKG_ITS ---
APPROVED REPORT Exam: Resting ECG Reason for Exam: CML Patient Location: O HR:60 bpm ECG Measurements Heart Rate 60 AXIS DC [id number] P [id number] QRSd 230 QRS -87 QT 543 T 94 QTc 543 Conclusion Afib/flutter and ventricular-paced rhythm...V-paced rhythm, A-rate>240 No further analysis attempted due to paced rhythm Baseline wander in lead(s) V5
== END 2025-04-24 12:56 | disposition home or self-care (01) ==
PROVIDERS: PCP Family Medicine; Visit Provider Family Medicine
DX: C92.10 Chronic myeloid leukemia, BCR/ABL-positive, not having achieved remission (principal); I25.10 Atherosclerotic heart disease of native coronary artery without angina pectoris; I48.21 Permanent atrial fibrillation; I25.5 Ischemic cardiomyopathy
CPT/HCPCS: 93005; 93010

== ENCOUNTER → 2025-04-25 02:27 | Outpatient (CLI) | payer MEDICARE, SELFPAY ==
--- NOTE | 2025-04-25 10:34 | DI.RAD_ITS ---
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 TECHNIQUE: 2D digital imaging was performed. COMPARISON: CR XR LUMBAR SPINE COMPLETE from 09/26/2024 FINDINGS: Five views. No evidence of fracture. Very mild anterolisthesis L4 upon L5 related to facet arthropathy. No pars defects. There is also advanced disc space narrowing evident at L5-S1. Also at L2-3 again noted and this is asymmetric disc space narrowing more prominent on the right than the left. There is moderate narrowing of disc space at L3-4. There appear to have been laminectomies at the lower 2 levels. Multilevel facet arthropathy. No osseous lesions. There is linear calcification on the left side which I suspect is vascular and probably related to renal artery. IMPRESSION: Multilevel degenerative disc disease and degenerative changes. Minimal change when compared to images of September 2024. DATA REPOSITORY: RADIATION DOSE DELIVERED:
--- NOTE | 2025-04-25 10:34 | DI.RAD_ITS ---
Exam(s) XR SHOULDER RT COMPLETE 2+V EXAM: XR SHOULDER RT COMPLETE 2+V CLINICAL HISTORY: BILAT SHOULDER PAIN,ROTATOR CUFF ARTHROPATHY,M12.811,M12.812. TECHNIQUE: 2D digital imaging was performed. COMPARISON: CR LEFT SHOULDER COMPLETE from 05/28/2011 FINDINGS: Four views No evidence of acute fracture or dislocation. However, there is significant calcification in the lateral subacromial space above the greater tuberosity consistent with calcific rotator cuff tendinitis. Bone density normal. There are mild degenerative changes in the glenohumeral and AC joints. No osseous lesions. IMPRESSION: Calcific rotator cuff tendinitis. DATA REPOSITORY: RADIATION DOSE DELIVERED:
--- NOTE | 2025-04-25 10:34 | DI.RAD_ITS ---
Exam(s) XR SHOULDER LT COMPLETE 2+V EXAM: XR SHOULDER LT COMPLETE 2+V CLINICAL HISTORY: BILAT SHOULDER PAIN,ROTATOR CUFF ARTHROPATHY BILAT,M12.811,M12.812. TECHNIQUE: 2D digital imaging was performed. COMPARISON: CR XR SHOULDER RT COMPLETE 2+V from 04/25/2025 FINDINGS: Four views No evidence of fracture nor dislocation or abnormal soft tissue densities. Left-sided cardiac pacemaker noted. Bone density normal. No osseous lesions. No obvious degenerative changes in the glenohumeral joint and AC joint. Osteophytic ridge noted on the undersurface of the lateral aspect of the a cromion. IMPRESSION: There is no osteophytic ridge on the undersurface of the a chromium seen on one view. This may be causing an element of impingement upon the rotator cuff mechanism. There is no evidence of calcific rotator cuff tendinitis, as is evident on the opposite-right side. DATA REPOSITORY: RADIATION DOSE DELIVERED:
--- NOTE | 2025-04-25 10:34 | DI.RAD_ITS ---
Exam(s) XR KNEE LT 3V AP,LAT,GABE EXAM: XR KNEE LT 3V AP,LAT,GABE CLINICAL HISTORY: CHRONIC PAIN LT KNEE,M25.562,G89.29,GOUT,PSORIATIC ARTROPATHY. TECHNIQUE: 2D digital imaging was performed. COMPARISON: No exams were available for comparison FINDINGS: 3 views No evidence acute fracture nor prominent joint effusion. Minimal if any significant degenerative changes. Fabella noted posteriorly as is calcification in the popliteal artery. Bone density normal. No osseous lesions. IMPRESSION: No significant radiographic findings in the left knee. DATA REPOSITORY: RADIATION DOSE DELIVERED:
--- NOTE | 2025-04-25 10:34 | DI.RAD_ITS ---
Exam(s) XR CERVICAL SPINE COMP 4-5V EXAM: XR CERVICAL SPINE COMP 4-5V CLINICAL HISTORY: NECK AND LOW BACK PAIN, PSORIATIC ARTHROPATHY,. TECHNIQUE: 2D digital imaging was performed. COMPARISON: CR,RF RF BARIUM SWALLOW from 01/09/2024 FINDINGS: Five views No evidence fracture. There is mild anterolisthesis C4 upon C5 the flexion view related to facet arthropathy. There is no disc space narrowing at this level. There is moderate disc space narrowing at C5-6 and C6-7 levels. Bone density normal. No osseous lesions. IMPRESSION: Chronic degenerative disc disease C5-6 and C6-7 levels. Mild degenerative anterolisthesis of C4 upon C5. DATA REPOSITORY: RADIATION DOSE DELIVERED:
== END ==
LOC: DI 02:27
PROVIDERS: PCP Family Medicine; Visit Provider Student in an Organized Health Care Education/Training Program
DX: L40.50 Arthropathic psoriasis, unspecified (principal); M51.360 Other intervertebral disc degeneration, lumbar region with discogenic back pain only; Z79.899 Other long term (current) drug therapy; M12.811 Other specific arthropathies, not elsewhere classified, right shoulder; M12.812 Other specific arthropathies, not elsewhere classified, left shoulder; M25.562 Pain in left knee; G89.29 Other chronic pain; M10.9 Gout, unspecified
CPT/HCPCS: 73562; 72050; 72110; 73030